=== PATIENT | male | born 1985 | race Caucasian/White ===

== ENCOUNTER 2022-08-26 10:54 | Emergency (ER) | payer BC, SELFPAY ==
[2022-08-26] VITALS (7 sets, daily range): BP systolic 92–130; BP diastolic 74–80; PULSE 88–107; RESP 16–18; TEMP 36.5–36.8; O2SAT 95–100; BMI 28.2
--- NOTE | 2022-08-26 11:33 | XR_ITS ---
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 Views: 2 views. COMPARISON: No relevant prior studies available. FINDINGS: Lungs: Right lung clear. Pleural spaces: Unremarkable. No pleural effusion. No pneumothorax. Heart/Mediastinum: Unremarkable. No cardiomegaly. Diaphragm: Elevated left hemidiaphragm. Compressive left basilar subsegmental atelectasis. Clear right lung. Bones/joints: Unremarkable. Gastrointestinal tract: Dilated colonic loops. IMPRESSION: Elevated left hemidiaphragm with compressive subsegmental atelectasis. Possible colonic ileus.
--- NOTE | 2022-08-26 11:40 | EXP.UTC ---
Discharge Plan Disposition Patient Disposition: Home, Self-Care Condition: Good Prescriptions Prescriptions: New levofloxacin 500 mg tablet 500 mg PO DAILY 10 Days Qty: 10 0RF prednisone 20 mg tablet 20 mg PO BID Qty: 10 0RF Referrals Follow up/Referrals: Radha Price APRN [Staff Physician] - See instructions Provider,MD Marcello [Primary Care Provider] - See instructions Tanner Wilkes MD [Physician] - See instructions Activity Restrictions/Add. Instructions Additional Instructions/Restrictions: Levaquin and prednisone as prescribed. Follow-up with pulmonology, Dr. Wilkes, call for appointment, bring x-ray and CT disc with you to appointment. Follow-up with Radha Price NP for gastroenterology, call for appointment, bring x-ray and CT disc with you to appointment. Clinical Impressions Clinical Impression: Acute bronchitis, Elevated diaphragm, Chronic pleural effusion, Ileus Instructions Patient Instructions: DI for Ileus, DI for Acute Bronchitis, DI for Pleural Effusion Discharge ED Provider: Magno Ray [facility] HPI General Chief complaint: Upper Respiratory Infection Stated complaint: Persistant cough Mode of Arrival: Ambulatory Source of Information: Patient Limitations: No Limitations Time Seen by Provider: 08/26/22 12:41 Description of Symptoms (Recalled from Triage Doc. by RN): PATIENT C/O PERSISTANT COUGH. REPORTS A HISTORY OF COLLAPSED LUNG APPROX 2 YEARS AGO HEENT Symptoms (Recalled from RN notes): No Resp Symptoms (Recalled from RN notes): Yes Skin Symptoms (Recalled from RN notes): No MS Symptoms (Recalled from RN notes): No Functional Status (Recalled from RN notes): WNL History of Present Illness Provider Complaint: Patient states that for the last couple months States that he was seen in a [facility] in [place] and was given some antibiotics and they did help but then it came back States that at times he is able to cough up some mucous at times States that at times it is white, at times it is brown States that he has history of collapsed lung, 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 States that he had surgery where they tacked up his diaphragm and this happened while in the States that he was concerned when he was still having cough that is productive at times so he came in Denies SOA, Denies fever States that he has been having persistant cough since having the flu a few months ago Related Data Previous Rx's Medication Instructions Recorded levofloxacin 500 mg tablet 500 mg PO DAILY 10 days #10 tabs 08/26/22 prednisone 20 mg tablet 20 mg PO BID #10 tabs 08/26/22 Allergies Allergy/AdvReac Type Severity Reaction Status Date / Time No Known Allergies Allergy Verified 08/26/22 12:57 Worker's Comp Is this a Worker's Comp case?: No [facility] Disclaimer: The information contained in this section may have been updated after the patient was seen, as this information can be updated by other users. Social History Smoking Status: Never smoker alcohol intake: never current occupational status: employed Travel in the last 8 weeks: None ROS Obtained: Yes All systems reviewed & no additional complaints except as documented and Yes Systems reviewed as appropriate & no additional complaints except as documented Constitutional Constitutional: Reports system reviewed and no additional complaints, except as documented and Reports as per HPI ENT Ears, Nose, Mouth, and Throat: Reports system reviewed and no additional complaints, except as documented, Reports as per HPI and Reports nasal congestion Cardiovascular Cardiovascular: Reports system reviewed and no additional complaints, except as documented, Reports as per HPI, Denies chest pain and Denies dyspnea Respiratory Respiratory: Reports system reviewed and no additional complaints, except as documented, Reports as per HPI, Denies shortness of breath, Repo
--- NOTE | 2022-08-26 12:08 | PC.NURSE ---
PATIENT SENT TO ER PER Carmela JAMES APRN FOR FURTHER EVALUATION. REPORT GIVEN TO Ricky LOPEZ RN
--- NOTE | 2022-08-26 12:27 | HMH.EDGENADL ---
Discharge Plan Disposition Patient Disposition: Home, Self-Care Condition: Good Prescriptions Prescriptions: New levofloxacin 500 mg tablet 500 mg PO DAILY 10 Days Qty: 10 0RF prednisone 20 mg tablet 20 mg PO BID Qty: 10 0RF Referrals Follow up/Referrals: Radha Price APRN [Staff Physician] - See instructions Provider,MD Marcello [Primary Care Provider] - See instructions Tanner Wilkes MD [Physician] - See instructions Activity Restrictions/Add. Instructions Additional Instructions/Restrictions: Levaquin and prednisone as prescribed. Follow-up with pulmonology, Dr. Wilkes, call for appointment, bring x-ray and CT disc with you to appointment. Follow-up with Radha Price NP for gastroenterology, call for appointment, bring x-ray and CT disc with you to appointment. Clinical Impressions Clinical Impression: Acute bronchitis, Elevated diaphragm, Chronic pleural effusion, Ileus Instructions Patient Instructions: DI for Ileus, DI for Acute Bronchitis, DI for Pleural Effusion Discharge ED Provider: Magno Ray General Adult HPI General Chief complaint: Upper Respiratory Infection Stated complaint: Persistant cough Time Seen by Provider: 08/26/22 12:41 Mode of Arrival: Ambulatory Source of Information: Patient Limitations: No Limitations Description of Symptoms (Recalled from ER Triage Doc. by RN): PATIENT C/O PERSISTANT COUGH. REPORTS A HISTORY OF COLLAPSED LUNG APPROX 2 YEARS AGO History of Present Illness HPI narrative: The patient is sent from the urgent treatment center. He reports having a persistent, recurrent cough, brown liquid sputum. States that he had the flu a couple of months ago. Since then he has had problems with recurrent cough. Previously treated by an urgent treatment center with 5 days of antibiotics with improvement. He does not know what antibiotic was. Symptoms have again recurred. He went to the urgent treatment center today and had a chest x-ray which showed concern over an ileus. He was requesting treatment with antibiotics and steroids. 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 He says his diaphragm was pulled down and tacked in place. Since then he has had problems with his bowels. He says that he can go 79 days without having a bowel movement. He has to use laxative tea to have bowel movements. He says that sometimes when he lays down at night he will have excessive flatus. Denies abdominal pain or vomiting. Denies fever. His last bowel movement was yesterday. Related Data Previous Rx's Medication Instructions Recorded levofloxacin 500 mg tablet 500 mg PO DAILY 10 days #10 tabs 08/26/22 prednisone 20 mg tablet 20 mg PO BID #10 tabs 08/26/22 Allergies Allergy/AdvReac Type Severity Reaction Status Date / Time No Known Allergies Allergy Verified 08/26/22 12:57 [facility] Disclaimer: The information contained in this section may have been updated after the patient was seen, as this information can be updated by other users. Social History Smoking Status: Never smoker ROS Obtained: Yes Systems reviewed as appropriate & no additional complaints except as documented Constitutional Constitutional: Denies fever(s), Denies headache(s) and Denies weakness ENT Ears, Nose, Mouth, and Throat: Denies headache(s), Denies nasal discharge and Denies sore throat Cardiovascular Cardiovascular: Denies chest pain Respiratory Respiratory: Denies shortness of breath, Reports cough and Reports cough with sputum production Gastrointestinal Gastrointestingal: Reports as per HPI and constipation; Denies abdominal pain, diarrhea or vomiting Genitourinary Male Genitourinary: Denies difficulty urinating and Denies flank pain Musculoskeletal Musculoskeletal: Denies numbness Neurologic Neurologic: Denies headache(s), Denies numbness and Denies weakness
[2022-08-26 12:37] LABS: Microscopic, Urine URINE MICROSCOPIC (MICROSCOPIC)
[2022-08-26 12:40] LABS: Appearance,Urine CLEAR (Clear); Bilirubin,Urine Negative (Negative); Blood, Urine Negative (Negative); Color,Urine YELLOW (Yellow); Glucose,Urine (UA) Negative (Negative); Ketones,Urine Negative (Negative); Leukocyte Esterase,Urine Negative (Negative); Nitrate,Urine Negative (Negative); Protein,Urine Negative (Negative); Specific Gravity, Urine 1.025 (1.005-1.030)
--- NOTE | 2022-08-26 12:48 | CT_ITS ---
PROCEDURE INFORMATION: Exam: CT Chest Without Contrast; Diagnostic Exam date and time: 08/26/2022 1:02 PM Age: 37 years old Clinical indication: Cough; Additional info: Persistent, recurrent cough, diaph paralysis TECHNIQUE: Imaging protocol: Diagnostic computed tomography of the chest without contrast. Radiation optimization: All CT scans at this facility use at least one of these dose optimization techniques: automated exposure control; mA and/or kV adjustment per patient size (includes targeted exams where dose is matched to clinical indication); or iterative reconstruction. REPORTING DATA: Count of CT and Cardiac NM exams in prior 12 months: This patient has received [address] and 0 known cardiac nuclear medicine studies in the 12 months prior to the current study. COMPARISON: CR XR CHEST 2V 08/26/2022 11:32 AM FINDINGS: Trachea: Visualized central airways grossly clear. Lungs: Left basilar subsegmental atelectasis. Multifocal tree-in-bud foci in left lung base. Incidental calcified right apical granuloma. Pleural spaces: Chronic elevated left hemidiaphragm with complex moderate left pleural effusion. Heart: Tiny pericardial effusion. Lymph nodes: Reactive axillary and mediastinal lymph nodes without lymphadenopathy. Vasculature: Unremarkable. No aortic aneurysm. No appreciable atherosclerotic calcification of coronary arteries or thoracic aorta. Bones/joints: Visualized osseous structures grossly unremarkable findings. Soft tissues: Unremarkable. IMPRESSION: 1. Chronic elevation of left hemidiaphragm with complex left pleural effusion. Multifocal tree-in-bud foci in left lung base, likely infectious/inflammatory including from DIANDRA infection. 2. Tiny pericardial effusion.
--- NOTE | 2022-08-26 12:48 | CT_ITS ---
PROCEDURE INFORMATION: Exam: CT Abdomen And Pelvis With Contrast Exam date and time: 08/26/2022 1:05 PM Age: 37 years old Clinical indication: Constipation; Patient HX: PT has HX of paralyzed diaphragm on left side and collapsed lung; Additional info: Bowel problems TECHNIQUE: Imaging protocol: Computed tomography of the abdomen and pelvis with contrast. Radiation optimization: All CT scans at this facility use at least one of these dose optimization techniques: automated exposure control; mA and/or kV adjustment per patient size (includes targeted exams where dose is matched to clinical indication); or iterative reconstruction. Contrast material: ISOVUE; Contrast volume: 75 ml; Contrast route: IV; REPORTING DATA: Count of CT and Cardiac NM exams in prior 12 months: This patient has received [address] and 0 known cardiac nuclear medicine studies in the 12 months prior to the current study. COMPARISON: CT CHEST WO CON 08/26/2022 1:02 PM FINDINGS: Pleural spaces: Similar, chronically elevated left hemidiaphragm with chronic complex left pleural effusion appreciably changed. Heart: Small pericardial effusion. Liver: Normal. No mass. Gallbladder and bile ducts: Normal. No calcified stones. No ductal dilation. Pancreas: Normal. No ductal dilation. Spleen: Normal. No splenomegaly. Adrenal glands: Normal. No mass. Kidneys and ureters: Normal. No hydronephrosis. Stomach and bowel: Unremarkable. No obstruction. No mucosal thickening. Appendix: No evidence of appendicitis. Intraperitoneal space: Unremarkable. No free air. No significant fluid collection. Vasculature: Unremarkable. No abdominal aortic aneurysm. Lymph nodes: Unremarkable. No enlarged lymph nodes. Urinary bladder: Unremarkable as visualized. Reproductive: Unremarkable as visualized. Bones/joints: Unremarkable. No acute fracture. Soft tissues: Unremarkable. IMPRESSION: Etiology indeterminate chronically elevated left hemidiaphragm with complex left pleural effusion.
--- NOTE | 2022-08-26 12:58 | PC.NURSE ---
Pt. heading to CT
[2022-08-26 13:07] LABS: Alanine Aminotransferase 26 U/L (12-78); Albumin Level 4.7 g/dl (3.5-5.0); Albumin/Globulin Ratio 1.3 (1.1-1.8); Alkaline Phosphatase 71 U/L (38-126); Aspartate Amino Transferase 30 U/L (17-59); Bilirubin,Total 0.6 mg/dl (0.2-1.3); Blood Urea Nitrogen 19 mg/dl (9-20); Calcium 9.2 mg/dl (8.4-10.2); Carbon Dioxide 31 mmol/L (22.0-30.0); Chloride 100 mmol/L (98-107); Creatinine Clearance Estimated 156 mL/min (50-200); Estimated Glomerular Filt Rate 95 ml/min (>60); GFR (African American) 116 ML/MIN (>60); Globulin 3.7 g/dL (1.3-3.2); Glucose 92 mg/dl (74-100); Lipase 40 U/L (23-300); Sodium 137 mmol/L (136-145); Total Protein,Serum 8.4 g/dl (6.3-8.2)
--- NOTE | 2022-08-26 13:10 | PC.NURSE ---
pt back to room from [facility]
--- NOTE | 2022-08-26 13:11 | PC.NURSE ---
pt just arrived back to room from radiology
[2022-08-26 13:20] LABS: Squamous Epithelial Cell,Urine Occasional #/hpf (0-5); WBC,Urine Occasional #/hpf (0-3)
[2022-08-26 13:35] LABS: Basophils # 0.1 K/mm3 (0-0.2); Eosinophils # 0.1 K/mm3 (0.0-0.4); Eosinophils % 1.3 % (0.1-12.0); Hematocrit 44.7 % (42.0-52.0); Hemoglobin 14.4 g/dL (14.1-18.0); Lymphocytes # 2.1 K/mm3 (0.7-4.5); Lymphocytes % 27.2 % (10-50); Mean Corpuscular HGB Conc 32.1 g/dL (31.8-35.4); Mean Corpuscular Hemoglobin 25.5 pg (27.0-31.2); Mean Corpuscular Volume 79.5 fl (80-94); Mean Platelet Volume 8.1 fl (7.4-10.4); Monocytes # 0.6 K/mm3 (0.1-1.0); Monocytes % 8.2 % (1.7-9.3); Neutrophils # 4.9 K/mm3 (1.8-7.8); Neutrophils % 62.2 % (37.0-80.0); Platelet Count 251 K/mm3 (142-424); Red Blood Count 5.63 M/mm3 (4.60-6.20); Red Cell Distribution Width 14.9 % (11.5-17.5); White Blood Count 7.9 K/mm3 (4.8-10.8)
== END 2022-08-26 14:27 | disposition home or self-care (01) ==
LOC: UTC 11:24 → ER 12:14
PROVIDERS: Emergency Provider Emergency Medicine
DX: J20.9 Acute bronchitis, unspecified (principal); K56.7 Ileus, unspecified; J98.6 Disorders of diaphragm; J91.8 Pleural effusion in other conditions classified elsewhere
CPT/HCPCS: 71046; 71250; 74177; 80053; 81001; 83690; 85025; 99285; Q9967

== ENCOUNTER → 2022-11-15 11:33 | Outpatient (CLI) | payer BC, SELFPAY | PROVIDERS: Visit Provider Internal Medicine Pulmonary Disease | DX: J18.9 Pneumonia, unspecified organism (principal); B95.2 Enterococcus as the cause of diseases classified elsewhere | CPT/HCPCS: 87070; 87077; 87116; 87186; 87205; 87206; 87220 ==

== ENCOUNTER → 2022-11-16 10:56 | Outpatient (CLI) | payer BC, SELFPAY ==
--- NOTE | 2022-11-16 10:56 | CT_ITS ---
FINAL REPORT TECHNIQUE: Axial imaging of the chest was obtained without contrast. Reformatted images were also obtained and reviewed.This study was performed with techniques to keep radiation doses as low as reasonably achievable, (ALARA). Individualized dose reduction technique using automated exposure control or adjustment of mA and/or kV according to the patient's size were employed. CLINICAL HISTORY: POSSIBLE LUNG INFECTION IN COLLAPSED LUNG COMPARISON: 08/26/2022 FINDINGS: There is mild gynecomastia. There is no axillary adenopathy. There is no hilar or mediastinal mass or adenopathy. Heart size is normal. There is no pericardial or pleural effusion. Limited images of the upper abdomen are unremarkable. A calcified granuloma is seen in the right upper lobe. There is elevation of the left hemidiaphragm with postoperative changes the left thorax. Calcified material is seen in the left pleural space, unchanged from prior exam. There has been partial improvement of left lung opacities. Mild left lung scarring is noted. IMPRESSION: No acute process. Reviewed, Interpreted and Dictated by Huber Farris III, MD Transcribed by Elif Jorge Authenticated and [facility]
[2022-11-16 11:52] LABS: Basophils % 0.6 % (0.1-2.0); Eosinophils # 0.1 K/mm3 (0.0-0.4); Eosinophils % 0.9 % (0.1-12.0); Hematocrit 41.3 % (42.0-52.0); Hemoglobin 13.4 g/dL (14.1-18.0); Lymphocytes % 26.2 % (10-50); Mean Corpuscular HGB Conc 32.6 g/dL (31.8-35.4); Mean Corpuscular Hemoglobin 25.9 pg (27.0-31.2); Mean Corpuscular Volume 79.6 fl (80-94); Mean Platelet Volume 8.2 fl (7.4-10.4); Monocytes # 0.6 K/mm3 (0.1-1.0); Monocytes % 7.5 % (1.7-9.3); Neutrophils % 64.9 % (37.0-80.0); Platelet Count 303 K/mm3 (142-424); Red Blood Count 5.18 M/mm3 (4.60-6.20); Red Cell Distribution Width 14.2 % (11.5-17.5); White Blood Count 7.7 K/mm3 (4.8-10.8)
[2022-11-16 12:25] LABS: Alanine Aminotransferase 22 U/L (12-78); Albumin Level 4.2 g/dl (3.5-5.0); Albumin/Globulin Ratio 1.4 (1.1-1.8); Alkaline Phosphatase 65 U/L (38-126); Anion Gap 15.8 mEq/L (5-15); Aspartate Amino Transferase 27 U/L (17-59); Bilirubin,Total 0.4 mg/dl (0.2-1.3); Blood Urea Nitrogen 15 mg/dl (9-20); Calcium 9.1 mg/dl (8.4-10.2); Carbon Dioxide 27 mmol/L (22.0-30.0); Chloride 100 mmol/L (98-107); Estimated Glomerular Filt Rate 109 ml/min (>60); GFR (African American) 132 ML/MIN (>60); Glucose 92 mg/dl (74-100); Potassium 4.8 mmoL/L (3.5-5.1); Sodium 138 mmol/L (136-145); Total Protein,Serum 7.2 g/dl (6.3-8.2)
[2022-11-16 12:31] LABS: C-Reactive Protein 21.3 mg/L (0-4)
[2022-11-20 16:13] LABS: QuantiFERON-TB Gold Plus Negative (Negative)
[2022-11-20 20:14] LABS: Aspergillus flavus Negative (Neg:<1:1); Aspergillus fumigatus Negative (Neg:<1:1); Aspergillus niger Negative (Neg:<1:1); Blastomyces Antibody Negative (Neg:<1:1)
== END ==
PROVIDERS: PCP Internal Medicine Pulmonary Disease; Visit Provider Internal Medicine Pulmonary Disease
DX: R91.8 Other nonspecific abnormal finding of lung field (principal); J84.9 Interstitial pulmonary disease, unspecified; J45.909 Unspecified asthma, uncomplicated; J84.10 Pulmonary fibrosis, unspecified; R06.09 Other forms of dyspnea
CPT/HCPCS: 36415; 71250; 80053; 85025; 86140; 86480; 86606; 86612

== ENCOUNTER → 2022-11-26 08:04 | Day surgery (SDC) | payer BC, SELFPAY ==
[2022-11-23 14:53] VITALS: BMI 29.9
[2022-11-26] VITALS (10 sets, daily range): BP systolic 97–138; BP diastolic 66–85; PULSE 55–73; RESP 14–18; TEMP 36.1–36.6; O2SAT 92–98
--- NOTE | 2022-11-26 | XR_ITS ---
FINAL REPORT CLINICAL HISTORY: CHEST IN OR FT 1:37 FINDINGS: FLUORO TIME PROCEDURE: Fluoroscopy in the operating room. FINDINGS: Fluoroscopy time was provided by the radiology department for the clinical service. One film was obtained. Fluoroscopy exposure time: 1 minute 37 seconds IMPRESSION: See above Reviewed, Interpreted and Dictated by Daniel Bravo MD Transcribed by Fern Sky Authenticated and [facility]
--- NOTE | 2022-11-26 08:09 | ECG_ITS ---
APPROVED REPORT Exam: Resting ECG HR:68 bpm ECG Measurements Heart Rate 68 AXES CA 127 P -23 QRSd 101 QRS 83 QT 405 T 84 QTc 422 Conclusion SINUS RHYTHM WITH SINUS ARRHYTHMIA ANTEROLATERAL MYOCARDIAL INFARCTION , OF INDETERMINATE AGE [40+ ms Q WAVE IN I/aVL/V3-V6] ABNORMAL ECG UNCONFIRMED REPORT Electronically signed by : Steve Pineda MD 11/26/2022 21:25:53
--- NOTE | 2022-11-26 08:37 | SUR.PREOP ---
Pancho Belle ESCROW CLERK reviewed EKG and stated he will talk to dr. navarro.
--- NOTE | 2022-11-26 08:58 | SUR.PREOP ---
Faxed for Release of Information to [facility] for any prior EKG's. [id number]- Notified NAT Puentes regarding cardiology consult
[2022-11-26 08:59] LABS: Chloride 101 mmol/L (98-107)
[2022-11-26 09:00] LABS: Potassium 4.1 mmoL/L (3.5-5.1); Sodium 138 mmol/L (136-145)
[2022-11-26 09:02] LABS: Basophils % 0.4 % (0.1-2.0); Blood Urea Nitrogen 15 mg/dl (9-20); Creatinine Clearance Estimated 165 mL/min (50-200); Eosinophils # 0.1 K/mm3 (0.0-0.4); Estimated Glomerular Filt Rate 95 ml/min (>60); GFR (African American) 116 ML/MIN (>60); Hematocrit 42.9 % (42.0-52.0); Hemoglobin 13.5 g/dL (14.1-18.0); Lymphocytes # 1.9 K/mm3 (0.7-4.5); Lymphocytes % 21.4 % (10-50); Mean Corpuscular HGB Conc 31.5 g/dL (31.8-35.4); Mean Corpuscular Hemoglobin 25.4 pg (27.0-31.2); Mean Corpuscular Volume 80.4 fl (80-94); Mean Platelet Volume 8.5 fl (7.4-10.4); Monocytes # 0.5 K/mm3 (0.1-1.0); Monocytes % 5.6 % (1.7-9.3); Neutrophils # 6.4 K/mm3 (1.8-7.8); Neutrophils % 71.6 % (37.0-80.0); Platelet Count 216 K/mm3 (142-424); Red Blood Count 5.33 M/mm3 (4.60-6.20); Red Cell Distribution Width 14.6 % (11.5-17.5); White Blood Count 8.9 K/mm3 (4.8-10.8)
[2022-11-26 09:03] LABS: Anion Gap 11.1 mEq/L (5-15); Carbon Dioxide 30 mmol/L (22.0-30.0); Glucose 95 mg/dl (74-100)
--- NOTE | 2022-11-26 09:43 | SUR.PREOP ---
echo at bedside
--- NOTE | 2022-11-26 09:54 | SUR.PREOP ---
Daniel Mccollum PA at bedside
--- NOTE | 2022-11-26 09:58 | EXP.ANES.CKL ---
[facility] Disclaimer: The information contained in this section may have been updated after the patient was seen, as this information can be updated by other users. Medical History Allergies Atypical pneumonia Dyspnea on exertion Multiple lung nodules on CT Surgical History History of shoulder surgery History of thoracentesis History of thoracotomy History of thumb surgery History of umbilical hernia repair Family History Other Family history of cancer Hypertension Social History (Updated 11/26/22 @ 08:24 by Jayshree Lynch RN) Smoking Status: Never smoker alcohol intake: never substance use type: denies use current occupational status: employed Travel in the last 8 weeks: None [facility] Anesthesia Checklist Patient Identification Patient Identification: Arm Band Structural Data Admitted From: Home Planned Operative Procedure/s: Excision of Right Thigh Lesion Consent for Planned Operative Procedure(s) Verified: Yes Verified Documents: Surgical Consent and History and Physical NPO Status Verified Time NPO: 00:00 Additional verifications Anesthesia Reactions: No Hx Blood Transfusions: No Blood Transfusion Reaction: No Airway Assessment C-Spine Mobility Assessed: Yes TMJ Mobility Assessed: Yes Dentition: Good Dentition Neurological Assessment Level of Consciousness: Awake and Alert Anesthesia Plan Anesthesia Risk discussed: Yes Anesthesia Plan: Verified ASA Class: II Anesthesia Type: General
--- NOTE | 2022-11-26 11:00 | EXP.BRONCH.N ---
Procedure: Date: 11/26/22 Patient Date of :: 1985 Procedure Performed:: Bronchoscopy with airway examination, bronchoalveolar lavage and transbronchial lung biopsy Indications:: Atypical pneumonia Nonresolving pneumonia Performing Provider:: Tanner Wilkes MD Referring Provider:: Patient is a self-referral to the pulmonary clinic. Sedation:: General anesthesia Procedure:: Bronchoscopy airway examination, bronchoalveolar lavage and transbronchial lung biopsy: A clean THEREPEAUTIC bronchoscopy was advanced through the ET tube and airways were examined up to subsegmental bronchi. Airways appeared grossly normal, no evidence of mucoid secretions, mucous plugging active bleeding/old blood clots noted. Bronchoalveolar lavage was performed in the LEFT UPPER LOBE with instillation of 60 cc normal saline with return of 30 cc back. BAL fluid was sent for cell count and differential along with bacterial fungal and AFB stain and cultures. Transbronchial biopsy was performed in the LEFT UPPER LOBE with a total of 7 biopsies performed, 5 biopsy specimens were sent in formalin for cytopathologic examination. The other 2 biopsy samples, were sent one each in two separate normal saline specimen cups for bacterial fungal and AFB stain cultures. Special request was also made for the pathologist to evaluate for AFB and fungal organisms on the cytopathologic examination. Patient tolerated the procedure with no immediate acute complications. We will follow the patient in pulmonary clinic in 7 to 10 days. Findings:: Please see the procedure note Recommendations:: Postoperative bronchoscopy instructions. Follow in pulmonary clinic in 5 to 10 days Complications:: No acute immediate complication Estimated blood obtained (mL): 5
--- NOTE | 2022-11-26 11:07 | P.PNANES_ITS ---
[facility] Anesthesia Record Part I Anesthesia Record I Intake, IV Amount: 500 Estimated blood loss (mL): 0 Urine output (mL): 0 Blood Products used (#): none Blood Pressure: 97/73 SaO2: 95 Pulse Rate: 70 Respiratory Rate: 16 Temperature: 97 F Patient is:: Drowsy and Stable Stable to PACU at:: 11:05
--- NOTE | 2022-11-26 11:52 | EXP.CARD.CON ---
History of Present Illness History of Present Illness Consult date: 11/26/22 Requesting physician: Tanner Wilkes Consult reason: pre-op evaluation Chief complaint: Abnormal EKG Additional Medical History:: 1. 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 Status post diaphragm tacking due to exertional shortness of breath and stomach displacement B. Chronic left pleural effusion 2. 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 Abnormal EKG showing possible anterolateral VT B. Echocardiogram, 11/26/2022, normal ejection fraction with no wall motion abnormalities History of present illness: 37-year-old white male [place] for bronchoscopy today due to recent lung infection, chronic cough for 2 months and shortness of breath. Cardiology consulted due to abnormal EKG. Patient denies history of diabetes, tobacco use, hypertension, hyperlipidemia or significant family history of early coronary disease. EKG shows Q waves in the anterolateral leads with concern for anterolateral VT. Echocardiogram was obtained that shows displacement of the heart to the right side with normal ejection fraction and normal wall motion abnormalities. [facility] Disclaimer: The information contained in this section may have been updated after the patient was seen, as this information can be updated by other users. Medical History (Updated 11/26/22 @ 11:57 by NAT Mike) Abnormal EKG Allergies Atypical pneumonia Dyspnea on exertion Multiple lung nodules on CT Surgical History History of shoulder surgery History of thoracentesis History of thoracotomy History of thumb surgery History of umbilical hernia repair Family History Family history of cancer Hypertension Social History (Updated 11/26/22 @ 09:58 by Cassius Belle CRNA) Smoking Status: Never smoker alcohol intake: never substance use type: denies use current occupational status: employed Travel in the last 8 weeks: None Review of Systems Review of Systems Review of systems:: pertinent systems reviewed and negative unless documented below Exam Data for Last 24 hours Vital signs and Labs for Last 24 Hours: Temp Pulse Resp BP Pulse Ox 97 F L 71 16 138/76 95 11/26/22 11:08 11/26/22 11:35 11/26/22 11:35 11/26/22 11:35 11/26/22 11:35 Laboratory Results - last 24 hr 11/26/22 08:35: WBC 8.9, RBC 5.33, Hgb 13.5 L, Hct 42.9, MCV 80.4, MCH 25.4 L, MCHC 31.5 L, RDW 14.6, Plt Count 216, MPV 8.5, Neut % (Auto) 71.6, Lymph % (Auto) 21.4, [place] % (Auto) 5.6, Eos % (Auto) 1.0, Baso % (Auto) 0.4, Neut # (Auto) 6.4, Lymph # (Auto) 1.9, [place] # (Auto) 0.5, Eos # (Auto) 0.1, Baso # (Auto) 0.0 11/26/22 08:35: Sodium 138, Potassium 4.1, Chloride 101, Carbon Dioxide 30, Anion Gap 11.1, BUN 15, Creatinine 0.90, Estimated Creat Clear 165, Estimated GFR 95, Est GFR ( Amer) 116, Glucose 95, Calcium 9.0 I & O for Last 24 hours: Intake & Output 11/23/22 11/24/22 11/25/22 11/26/22 11:59 11:59 11:59 11:59 Intake Total 500 / 500 Balance 500 / 500 Weight 226 lb Constitutional Constitutional: no acute distress *Routine Respiratory Exam Respiratory: Present CTA bilaterally *Routine Cardiovascular Exam Cardiovascular: Present RRR; Absent murmur, gallop or rubs Comments: Heart sounds heard best in the right chest *Routine Extremities Exam Extremities: Absent cyanosis, clubbing or edema *Routine Neurological Exam Neurological: Present alert, oriented X3 and CN II-XII intact Meds Home Medications and Allergies Home Medications Medication Instructions Recorded Confirmed Type albuterol sulfate 90 mcg/actuation 2 inh inhalation Q6H PRN shortness 11/14/22 11/23/22 Rx aerosol inhaler of breath or wheezing 90 days #8.5 grams amoxicillin 500 mg-potassium 1
--- NOTE | 2022-11-27 10:02 | P.PNANES_ITS ---
[facility] Anesthesia Record Part II Anesthesia Record Part II Discharge Time: 11:35 Destination: Surgical Day Care (OP Surgery) PACU nurse assessment reviewed?: Yes Patient Condition:: Good Anesthesia Complications:: None Swallowing reflex intact?: Yes Cyanosis?: No Blood Pressure: 138/76 Pulse Rate: 71 Temperature: 97.8 F Mental Status: Alert & Oriented Pain level:: 0 Nausea and/or vomitting:: None Intake, IV Amount: 0
[2022-11-27 10:04] VITALS: BP 138/76; PULSE 71; TEMP 36.6
== END | disposition home or self-care (01) ==
PROVIDERS: Visit Provider Internal Medicine Pulmonary Disease
PROC: (CPT 31624; principal; 2022-11-26 10:00)
DX: J18.9 Pneumonia, unspecified organism (principal); J20.9 Acute bronchitis, unspecified; J90 Pleural effusion, not elsewhere classified; R94.31 Abnormal electrocardiogram [ECG] [EKG]
CPT/HCPCS: 31624; 31628; 71045; 76000; 80048; 85025; 87070; 87102; 87116; 87186; 87205; 87206; 89051; 93005; 93306; J2405

== ENCOUNTER 2023-08-06 09:45 | Outpatient (CLI) | payer BC, SELFPAY ==
[2023-08-06 09:49] LABS: Microscopic, Urine URINE MICROSCOPIC (MICROSCOPIC)
[2023-08-06 10:27] LABS: Appearance,Urine CLEAR (Clear); Bilirubin,Urine Negative (Negative); Blood, Urine Negative (Negative); Color,Urine YELLOW (Yellow); Glucose,Urine (UA) Negative (Negative); Ketones,Urine Negative (Negative); Leukocyte Esterase,Urine Negative (Negative); Nitrate,Urine Negative (Negative); Protein,Urine Negative (Negative); Urobilinogen,Urine 0.2 EU/dl (0.2)
[2023-08-06 10:39] LABS: Bacteria,Urine Trace /lpf
[2023-08-06 10:47] LABS: Basophils % 0.4 % (0.1-2.0); Eosinophils # 0.1 K/mm3 (0.0-0.4); Eosinophils % 0.5 % (0.1-12.0); Hematocrit 45.6 % (42.0-52.0); Hemoglobin 14.4 g/dL (14.1-18.0); Lymphocytes # 1.8 K/mm3 (0.7-4.5); Lymphocytes % 20.3 % (10-50); Mean Corpuscular HGB Conc 31.7 g/dL (31.8-35.4); Mean Corpuscular Hemoglobin 25.4 pg (27.0-31.2); Mean Corpuscular Volume 80.1 fl (80-94); Mean Platelet Volume 8.7 fl (7.4-10.4); Monocytes # 0.6 K/mm3 (0.1-1.0); Monocytes % 6.6 % (1.7-9.3); Neutrophils # 6.2 K/mm3 (1.8-7.8); Neutrophils % 72.1 % (37.0-80.0); Platelet Count 208 K/mm3 (142-424); Red Blood Count 5.69 M/mm3 (4.60-6.20); Red Cell Distribution Width 13.8 % (11.5-17.5); White Blood Count 8.7 K/mm3 (4.8-10.8)
[2023-08-06 10:56] LABS: Chloride 101 mmol/L (98-107)
[2023-08-06 10:57] LABS: Potassium 4.6 mmoL/L (3.5-5.1); Sodium 137 mmol/L (136-145)
[2023-08-06 11:00] LABS: Anion Gap 9.6 mEq/L (5-15); Blood Urea Nitrogen 13 mg/dl (9-20); Calcium 9.2 mg/dl (8.4-10.2); Carbon Dioxide 31 mmol/L (22.0-30.0); Estimated Glomerular Filt Rate 95 ml/min (>60); GFR (African American) 115 ML/MIN (>60); Glucose 95 mg/dl (74-100)
== END 2023-08-06 23:59 ==
LOC: LAB 09:46
PROVIDERS: Visit Provider Surgery
DX: K42.9 Umbilical hernia without obstruction or gangrene (principal)
CPT/HCPCS: 36415; 80048; 81001; 85025

== ENCOUNTER 2023-08-08 06:02 | Day surgery (SDC) | payer BC, SELFPAY ==
[2023-08-06 12:47] VITALS: BMI 31.5
[2023-08-08] VITALS (9 sets, daily range): BP systolic 109–131; BP diastolic 78–92; PULSE 59–95; RESP 16–20; TEMP 36.2–36.7; O2SAT 92–98
[2023-08-08] MEDS: LACTATED RINGERS 1000ML 1,000 ML 100 ML IV (06:28)
--- NOTE | 2023-08-08 07:14 | P.PNANES_ITS ---
[facility] Disclaimer: The information contained in this section may have been updated after the patient was seen, as this information can be updated by other users. Medical History Abnormal computerized axial tomography of chest Abnormal EKG Allergies Atypical pneumonia Chronic cough Dyspnea on exertion Elevated diaphragm GERD (gastroesophageal reflux disease) Multiple lung nodules on CT Surgical History History of bronchoscopy History of shoulder surgery History of thoracentesis History of thoracotomy History of thumb surgery History of umbilical hernia repair Family History Other Family history of cancer Hypertension Social History Smoking Status: Never smoker alcohol intake: never substance use type: denies use current occupational status: employed Travel in the last 8 weeks: None [facility] Anesthesia Checklist Patient Identification Patient Identification: Arm Band and Verbal (Name & ) Structural Data Admitted From: Home Planned Operative Procedure/s: Lap. umbilical hernia repair Consent for Planned Operative Procedure(s) Verified: Yes NPO Status Verified Time NPO: 00:00 Additional verifications Anesthesia Reactions: No Hx Blood Transfusions: No Blood Transfusion Reaction: No Airway Assessment Mallampati Score:: Class I C-Spine Mobility Assessed: Yes TMJ Mobility Assessed: Yes Dentition: Good Dentition Neurological Assessment Level of Consciousness: Awake Hx Seizures: No Numbness or tingling in extremities: No Anesthesia Plan Anesthesia Risk discussed: Yes Anesthesia Plan: Verified ASA Class: II Anesthesia Type: General
[2023-08-08] MEDS: LIDOCAINE 1% 20ML MDV 20 ML (09:04)
[2023-08-08] MEDS: CEFAZOLIN SODIUM 2 GM in 0.9 % SODIUM CHLORIDE 100 ML IV (09:04)
--- NOTE | 2023-08-08 10:02 | EXP.OP.NOTE ---
Date of procedure: 08/08/23 Pre-op Diagnosis:: Recurrent umbilical hernia Post-op Diagnosis:: Same Procedure performed:: Laparoscopic-assisted open primary repair of recurrent umbilical hernia (no additional mesh) Surgeon:: Talat Blood MD Anesthesia: GETA Estimated blood loss (mL): 15 Operative findings:: Prior mesh visualized laparoscopically to be in good position No obvious recurrence noted laparoscopically Tiny herniation with incarcerated preperitoneal fat overlying mesh repair Primary repair of above-stated herniation with 0 Ethibond Operative note:: After informed consent was obtained the patient was taken to the operating room and placed in the supine position. General anesthesia was induced and his abdomen was prepped and draped in a sterile fashion. After infiltration with local anesthetic a small stab incision was made in the left upper quadrant. The Veress needle was placed in position. The abdomen was insufflated. A 5 mm optical trocar was placed in position. Under direct visualization an additional 5 mm trocar was placed in the left mid flank. The prior mesh repair at the umbilicus appeared to be intact. No additional herniations were noted. A portion of the surrounding preperitoneal fat was carefully dissected with harmonic sangeetha to evaluate for additional defects. Palpable nodularity (as noted from external palpation) at the site of prior repair remained. The right lateral margin of the prior infraumbilical incision was sharply reopened after infiltration with local anesthetic. The underlying subcutaneous tissue was dissected with a combination of blunt dissection and electrocautery. Incarcerated preperitoneal fat was resected revealing a tiny defect that was noted to be overlying the prior mesh repair. The defect was approximately 3 mm in length. 0 Ethibond was utilized to repair the defect. The wound was irrigated. The umbilical stump was reapproximated with non-dyed 2-0 Vicryl suture. Skin was then reapproximated with interrupted 4-0 Monocryl in a mattress fashion to facilitate hemostasis. Dressings were applied and the patient was transferred to recovery in stable condition. Condition: stable Disposition: PACU Specimens:: None Complications:: No immediate
--- NOTE | 2023-08-08 10:20 | EXP.ANES.I ---
[facility] Anesthesia Record Part I Anesthesia Record I Intake, IV Amount: 1,400 Hydration: Adequate Estimated blood loss (mL): 25 Urine output (mL): 0 Blood Products used (#): none Blood Pressure: 109/78 SaO2: 92 Pulse Rate: 80 Airway Patency: Patent Respiratory Rate: 20 Temperature: 97.2 F Patient is:: Awake, Drowsy and Stable Stable to PACU at:: 10:20
[2023-08-08] MEDS: HYDROCODONE/APAP 5/325 MG TABLET 1 TAB PO (11:06)
--- NOTE | 2023-08-09 12:49 | P.PNANES_ITS ---
[facility] Anesthesia Record Part II Anesthesia Record Part II Discharge Time: 10:55 Destination: Surgical Day Care (OP Surgery) PACU nurse assessment reviewed?: Yes Patient Condition:: Good Anesthesia Complications:: None Swallowing reflex intact?: Yes Airway Patency: Patent Cyanosis?: No Blood Pressure: 129/84 SaO2: 93 Respiratory Rate: 16 Pulse Rate: 6 Temperature: 97.6 F Mental Status: Alert & Oriented Pain level:: 0 Nausea and/or vomitting:: None Intake, IV Amount: 0 Hydration: Adequate
[2023-08-09 12:50] VITALS: BP 129/84; PULSE 6; RESP 16; TEMP 36.4; O2SAT 93
== END 2023-08-08 11:20 | disposition home or self-care (01) ==
PROVIDERS: Visit Provider Surgery
PROC: 0WQF4ZZ Repair Abdominal Wall, Percutaneous Endoscopic Approach (ICD-10-PCS; CPT 49614; principal; 2023-08-08 07:30)
DX: K42.0 Umbilical hernia with obstruction, without gangrene (principal)
CPT/HCPCS: 49614; 96374; J3490; J2405

== ENCOUNTER 2023-09-09 10:30 | Outpatient (RCR) | payer BC, SELFPAY ==
--- NOTE | 2023-08-28 14:08 | HMH.PTOPWND ---
Rehab Outpt Wound Evaluation Rehab OP Wound Evaluation Start: 08/28/23 13:54 Freq: Status: Active Protocol: Document 08/28/23 13:54 JEAN CARLOS (Rec: 08/28/23 14:07 PHOWILL [id number]) E-signed By Sergio Booker, PT Subjective/History History History This is the initial PT eval for Ankit Rangel, 38 yowm who presents with open abdominal wound ~ 3 wks S/P umbilical hernia repair. He reports his suturesopened shortly after his procedure and were removed by the MD. He has since been packing the wound with dry gauze 2x/day per surgeon's instructions. He has hx of prior umbilical hernia repair. Subjective Subjective He reports paoin 0/10 at rest, only pain with pressure to the wound itself. Sangunieous draingenoted on packing this date. He reports, The wound had closed over, but the surgeon opened it up today when I saw him. New diagnosis of cancer in past 12 No months? Wound Eval Wound Anterior Abdomen Wound Type Incision Is This a Chronic Wound Yes Wound Length (cm) 0.3 Wound Width (cm) 0.8 Wound Depth (cm) 3.5 Wound Bed Appearance Beefy Red Percentage Granulated (%) 100 Wound Margins Description Well Defined Surrounding Tissue Appearance [address] Drainage Description Sanguineous Drainage Amount Moderate Wound Topical Solution/Irrigant Saline Irrigant Packing Type Collagen Comment puracol Primary Dressing Composite Comment optifoam gentle border SA Wound Debridement Method Gauze,Mechanical Wound Debridement Amount of Tissue Minimal Removed Dressing Change Patient Tolerance Tolerated Well Wound Problems/Impairments Impairments Problems/Impairmments Palpation Tenderness,Impaired Work Activities,Wound Care Needs,Impaired Self Care/Self Management Prognosis Rehab Potential Good Clinical Impression Consistent with Diagnosis Yes Short Term Goals Number of Weeks 2 Decreased Palpation Tenderness Yes: 1/4 umbilical wound Decrease Wound Area Yes: by 25%, Depth <2.0 cm Senior Care Goals Number of Weeks 4 Decreased Palpation Tenderness Yes: 0/4 umbilical wound Decrease Wound Area Yes: by 75%, depth <0.5 cm Patient to be Ind w/ Home Wound Care/ Yes Dressing Changes Outpatient Therapy Plan of Care Treatment Plan May Include Therapeutic Exercise Including Home Yes Exercise Program Manual Therapy Techniques Yes Neuromuscular Re-education Yes Therapeutic Activities to Return to Yes Previous Functional/Work Level ADL/Self Care Education Yes Wound Care Yes Eval/Re-Eval Yes Frequency Times per week 1 Duration Number of Weeks 4 Addendums This patient is a candidate for social No or vocational rehab? Patient/Guardian verbally acknowledges Yes understanding of treatment program and consents to further treatment? Patient/Guardian verbally acknowledges Yes understanding of diagnosis, prognosis and goals for treatment? Eval Complexity PT Charges 48994 - High Complexity PHYSICIAN CERTIFICATION: I certify the specified therapy services for Ankit Rangel are required, authorized, and reviewed every 30 days.
== END 2023-09-09 11:30 | disposition home or self-care (01) ==
LOC: PT 10:30
PROVIDERS: Visit Provider Surgery
DX: K42.9 Umbilical hernia without obstruction or gangrene (principal); S31.101A Unspecified open wound of abdominal wall, left upper quadrant without penetration into peritoneal cavity, initial encounter
CPT/HCPCS: 97163; 97597

== ENCOUNTER 2023-11-21 09:02 | Day surgery (SDC) | payer BC, SELFPAY ==
[2023-11-21 09:28] VITALS: BP 130/80; PULSE 110; RESP 18; TEMP 36.3; O2SAT 98; BMI 30.2
--- NOTE | 2023-11-21 09:28 | HMH.SCOPE ---
Procedure: Date: 11/21/23 Patient Date of :: 1985 Procedure Performed:: EGD & biopsies Indications:: Chronic severe GERD Performing Provider:: Pio Price MD Referring Provider:: Radha Price APRN Sedation:: Propofol Procedure:: The gastroscope was gently passed through the incisoral orifice into the oral cavity and under direct visualization the esophagus was intubated. The endoscope was passed down the esophagus, through the stomach, and into the duodenum. Color, texture, mucosa, and anatomy of the esophagus, stomach, and duodenum were carefully examined with the scope. Findings:: Oropharynx: normal Esophagus: normal EG Junction: intact at 40 cm Cardia: normal Fundus: normal Body: normal, biopsied for h.pylori Antrum: normal Duodenal bulb: normal Duodenum (second and third portion): normal Impression: Normal EGD. No evidence of esophagitis or hiatus hernia. Specimens:: Gastric Recommendations:: PPI therapy and avoid tight fitting clothing Complications:: None Estimated blood obtained (mL): 0 Colonoscopy Component Colonoscopy Component Was a colonoscopy performed during today's procedure?: No
[2023-11-21] MEDS: LACTATED RINGERS 1000ML 1,000 ML 100 ML IV (09:36)
--- NOTE | 2023-11-21 09:56 | P.PNANES_ITS ---
[facility] Disclaimer: The information contained in this section may have been updated after the patient was seen, as this information can be updated by other users. Medical History GERD (gastroesophageal reflux disease) Abnormal computerized axial tomography of chest Chronic cough Abnormal EKG Allergies Multiple lung nodules on CT Atypical pneumonia Dyspnea on exertion Elevated diaphragm Surgical History History of bronchoscopy History of thoracentesis History of thoracotomy History of thumb surgery History of umbilical hernia repair History of shoulder surgery Family History Other Family history of cancer Hypertension Social History (Updated 11/21/23 @ 09:30 by Mae Mccollum RN) Smoking Status: Never smoker alcohol intake: never substance use type: denies use current occupational status: employed Travel in the last 8 weeks: None [facility] Anesthesia Checklist Patient Identification Patient Identification: Verbal (Name & ) Structural Data Admitted From: Home Planned Operative Procedure/s: egd Consent for Planned Operative Procedure(s) Verified: Yes Additional verifications Anesthesia Reactions: No Hx Blood Transfusions: No Blood Transfusion Reaction: No Airway Assessment Mallampati Score:: Class II C-Spine Mobility Assessed: Yes TMJ Mobility Assessed: Yes Dentition: Good Dentition Neurological Assessment Level of Consciousness: Awake, Alert and Appropriate Anesthesia Plan Anesthesia Risk discussed: Yes Anesthesia Plan: Verified ASA Class: II Anesthesia Type: MAC
[2023-11-21 10:01] VITALS: O2SAT 98
[2023-11-21 10:17] VITALS: BP 112/74; PULSE 111; RESP 18; TEMP 36.7; O2SAT 93
[2023-11-21 10:27] VITALS: BP 110/71; PULSE 96; RESP 18; O2SAT 95
[2023-11-21 10:37] VITALS: BP 133/65; PULSE 94; RESP 18; O2SAT 96
[2023-11-21 11:00] VITALS: BP 110/71; PULSE 90; RESP 18; O2SAT 98
== END 2023-11-21 11:00 | disposition home or self-care (01) ==
PROVIDERS: Visit Provider Internal Medicine Gastroenterology
PROC: 0DJ08ZZ Inspection of Upper Intestinal Tract, Via Natural or Artificial Opening Endoscopic (ICD-10-PCS; CPT 43235; principal; 2023-11-21 10:00)
DX: K21.9 Gastro-esophageal reflux disease without esophagitis (principal)
CPT/HCPCS: 43239; J7120

== ENCOUNTER 2023-12-05 18:00 | Outpatient (CLI) | payer BC, SELFPAY ==
[2023-12-05 18:40] LABS: Alanine Aminotransferase 16 U/L (12-78); Albumin Level 4.3 g/dl (3.5-5.0); Albumin/Globulin Ratio 1.3 (1.1-1.8); Alkaline Phosphatase 71 U/L (38-126); Anion Gap 14.5 mEq/L (5-15); Aspartate Amino Transferase 24 U/L (17-59); Blood Urea Nitrogen 12 mg/dl (9-20); Calcium 9.4 mg/dl (8.4-10.2); Carbon Dioxide 28 mmol/L (22.0-30.0); Chloride 99 mmol/L (98-107); Chol/HDL Ratio 4.3 (1-3.5); Cholesterol 180 mg/dl (140-200); Estimated Glomerular Filt Rate 95 ml/min (>60); GFR (African American) 115 ML/MIN (>60); Globulin 3.4 g/dL (1.3-3.2); Glucose 91 mg/dl (74-100); HDL Cholesterol 42 mg/dl (40-60); Potassium 4.5 mmoL/L (3.5-5.1); Sodium 137 mmol/L (136-145); Total Protein,Serum 7.7 g/dl (6.3-8.2); Triglycerides 91 mg/dl (30-150); VLDL Cholesterol 18 mg/dL (0-40)
[2023-12-05 18:51] LABS: Direct LDL Cholesterol 107.69 mg/dL (100-129)
[2023-12-05 18:59] LABS: 25-OH Vitamin D, Total 30.6 ng/mL (30-100)
[2023-12-05 19:13] LABS: Thyroid Stimulating Hormone 0.68 uIU/mL (0.465-4.68)
== END 2023-12-05 23:59 | disposition home or self-care (01) ==
LOC: LAB.DROPOF 12-06 13:57
PROVIDERS: PCP Student in an Organized Health Care Education/Training Program; Visit Provider Student in an Organized Health Care Education/Training Program
DX: E55.9 Vitamin D deficiency, unspecified (principal); Z13.29 Encounter for screening for other suspected endocrine disorder; K59.00 Constipation, unspecified; Z13.220 Encounter for screening for lipoid disorders; Z68.30 Body mass index [BMI] 30.0-30.9, adult; E66.9 Obesity, unspecified
CPT/HCPCS: 80053; 80061; 82306; 83036; 84443; 85025

== ENCOUNTER 2023-12-12 15:43 | Outpatient (CLI) | payer BC, SELFPAY ==
--- NOTE | 2023-12-12 15:45 | XR_ITS ---
FINAL REPORT CLINICAL HISTORY: constipation FINDINGS: There is significant gaseous distention of the transverse colon exceeding 10 cm. There is moderate fecal impaction of the right colon. No small bowel dilatation identified. No abnormal radiopacities are seen in the abdomen. IMPRESSION: Moderate fecal impaction. Reviewed, Interpreted and Dictated by Daniel Bravo MD Transcribed by Azeb Mcclain Authenticated and [facility]
== END 2023-12-12 23:59 | disposition home or self-care (01) ==
LOC: RAD 15:43
PROVIDERS: PCP Student in an Organized Health Care Education/Training Program; Visit Provider Nurse Practitioner
DX: K59.00 Constipation, unspecified (principal)
CPT/HCPCS: 74018

== ENCOUNTER 2024-03-20 10:00 | Outpatient (CLI) | payer BC, SELFPAY ==
--- NOTE | 2024-03-20 10:03 | FL_ITS ---
FINAL REPORT CLINICAL HISTORY: REFLUX, BLOATING, CONSTIPATION HX OF DIAPHRAGM AND HERNIA SURG DAP 1723.81 0.57 MIN FINDINGS: Small bowel follow-through PROCEDURE: The patient ingested barium. Spot and overhead films were obtained. FINDINGS: The computer installer film is unremarkable . The transit time to the colon is normal . The mucosal fold pattern is normal . Spot images of the terminal ileum are unremarkable . IMPRESSION: Normal small bowel follow-through Dose area product: 1723 milliGray Authenticated and ERN
[2024-03-20] MEDS: BARIUM SULFATE(LIQUID E-Z-PAQUE);355ML BOTTLE 355 ML PO (11:58)
[2024-03-20] MEDS: DIATRIZOATE MEG 66% & DIATRIZOATE NA 10% 30ML UDC 15 ML PO (11:58)
== END 2024-03-20 23:59 | disposition home or self-care (01) ==
LOC: RAD 10:01
PROVIDERS: PCP Student in an Organized Health Care Education/Training Program; Visit Provider Nurse Practitioner Family
DX: R14.0 Abdominal distension (gaseous) (principal); K59.09 Other constipation; K21.9 Gastro-esophageal reflux disease without esophagitis
CPT/HCPCS: 74250; Q9963

== ENCOUNTER 2024-03-26 08:08 | Day surgery (SDC) | payer BC, SELFPAY ==
[2024-03-18 09:09] VITALS: BMI 31.2
[2024-03-26 08:33] VITALS: BP 141/77; PULSE 72; RESP 18; TEMP 36.2; O2SAT 98; BMI 31.2
--- NOTE | 2024-03-26 08:41 | P.PNANES_ITS ---
[facility] Disclaimer: The information contained in this section may have been updated after the patient was seen, as this information can be updated by other users. Medical History GERD (gastroesophageal reflux disease) Abnormal computerized axial tomography of chest Chronic cough Abnormal EKG Allergies Multiple lung nodules on CT Atypical pneumonia Dyspnea on exertion Elevated diaphragm Surgical History History of bronchoscopy History of thoracentesis History of thoracotomy History of thumb surgery History of umbilical hernia repair History of shoulder surgery Family History Other Family history of cancer Hypertension Social History Smoking Status: Never smoker alcohol intake: never substance use type: denies use current occupational status: employed Travel in the last 8 weeks: None household members: spouse housing: house lives independently: Yes marital status: service: Yes correction: No caffeine: No [facility] Anesthesia Checklist Patient Identification Patient Identification: Verbal (Name & ) Structural Data Admitted From: Home Planned Operative Procedure/s: colonoscopy Consent for Planned Operative Procedure(s) Verified: Yes Additional verifications Anesthesia Reactions: No Hx Blood Transfusions: No Blood Transfusion Reaction: No Airway Assessment Mallampati Score:: Class II C-Spine Mobility Assessed: Yes TMJ Mobility Assessed: Yes Dentition: Good Dentition Neurological Assessment Level of Consciousness: Awake, Alert and Appropriate Anesthesia Plan Anesthesia Risk discussed: Yes Anesthesia Plan: Verified ASA Class: III Anesthesia Type: MAC
[2024-03-26 08:59] VITALS: O2SAT 98
--- NOTE | 2024-03-26 09:11 | P.HP_ITS ---
History of Present Illness *Admission Date: 03/26/24 *Reason for visit:: Diagnostic colonoscopy *History of present illness: Mr. Rangel is a 38-year-old gentleman who is here for diagnostic colonoscopy. . The patient has had constipation and reflux which has been difficult to control. The examination is deemed medically necessary for colonoscopy. The patient has been seen, interviewed and examined prior to the procedure by both myself and the anesthesia provider. [facility] Disclaimer: The information contained in this section may have been updated after the patient was seen, as this information can be updated by other users. Medical History (Updated 03/26/24 @ 09:12 by Stuart Mcfarlane II, MD) GERD (gastroesophageal reflux disease) Abnormal computerized axial tomography of chest Chronic cough Abnormal EKG Allergies Multiple lung nodules on CT Atypical pneumonia Dyspnea on exertion Elevated diaphragm Surgical History History of bronchoscopy History of thoracentesis History of thoracotomy History of thumb surgery History of umbilical hernia repair History of shoulder surgery Family History Other Family history of cancer Hypertension Social History Smoking Status: Never smoker alcohol intake: never substance use type: denies use current occupational status: employed Travel in the last 8 weeks: None household members: spouse housing: house lives independently: Yes marital status: service: Yes senior living: No caffeine: No Other Medical History Have you received the Pneumonia Vaccine: No Review of Systems Review of Systems Review of systems (narrative): Negative *Cardiovascular Comments: Negative *Gastrointestinal Comments: Negative *Genitourinary Comments: Negative *Musculoskeletal Comments: Negative *Neurologic Comments: Negative Meds Home Medications and Allergies Home Medications ?Medication ?Instructions ?Recorded ?Confirmed ?Type testosterone undecanoate 200 mg 200 mg PO DIRECTED 08/02/23 03/18/24 History capsule prucalopride 2 mg tablet 2 mg PO DAILY #90 tabs 03/16/24 03/18/24 Rx (Motegrity) sodium,potassium,mag sulfates 17.5 See Rx Instructions PO .COMPLEX 03/16/24 03/16/24 Rx gram-3.13 gram-1.6 gram oral soln #354 mL (Suprep Bowel Prep Kit) New Prescriptions to Start Prescriptions: Allergies Allergy/AdvReac Type Severity Reaction Status Date / Time No Known Allergies Allergy Verified 03/18/24 08:59 Exam Data for Last 24 hours Vital signs and Labs for Last 24 Hours: Temp Pulse Resp BP Pulse Ox O2 Del Method O2 Flow Rate 97.1 F L 72 18 141/77 H 98 Nasal Cannula 5 03/26/24 08:33 03/26/24 08:33 03/26/24 08:33 03/26/24 08:33 03/26/24 08:33 03/26/24 08:59 03/26/24 08:59 I & O for Last 24 hours: Intake & Output 03/23/24 03/24/24 03/25/24 03/26/24 23:59 23:59 23:59 23:59 Weight 237 lb *Routine HEENT Exam Head: Present normocephalic Eye: Present EOMI and PERRL ENT: Present mucous membranes moist *Routine Neck Exam Neck: Present supple *Routine Respiratory Exam Respiratory: Present CTA bilaterally *Routine Cardiovascular Exam Cardiovascular: Present RRR *Routine Abdominal Exam Abdominal: Present soft and normoactive bowel sounds; Absent tenderness *Routine Rectal Exam Rectal:: deferred *Routine Genitalia Exam Genitalia:: deferred *Routine Extremities Exam Extremities: Absent cyanosis, clubbing or edema *Routine Skin Exam Skin: Present warm; Absent rash *Routine Neurological Exam Neurological: Present alert and oriented X3 Assessment and Plan *Assessment and plan (1) Change in bowel habits: Status: Acute Category: Medical Code(s): R19.4 - Change in bowel habit (2) Chronic constipation: Status: Acute Category: Medical Code(s): K59.09 - Other constipation Plan A/P: 1. Constipation/change in bowel habits is the preprocedural diagnosis. The patient will be anesthetized/sedated using MAC sedation. The patient has been seen and examined. Cardiac and lung assessment prior to the examination is stable. Proceed with planned colonoscopy
--- NOTE | 2024-03-26 09:26 | P.PCN_ITS ---
[facility] Procedure Note Date: 03/26/24 Time: 09:26 Procedure Note:: Colonoscopy Procedure Report: Colonoscopy Endoscopist: Stuart Mcfarlane II, MD Referring physician: Pretty Sin PA-C Date of Procedure: March 26, 2024 Equipment: Olympus 190 variable stiffness pediatric colonoscope Sedation: MAC sedation Indication: Mr. Rangel is a 38-year-old gentleman who had a pneumothorax/collapsed lung and underwent thoracotomy in 2020. He had thoracentesis and paralyzed diaphragm. 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 The patient did have thoracentesis. He had gastric and bowel herniation into the thorax. After repair, he has suffered from intractable constipation. This was refractory to Linzess 290 mcg plus MiraLAX daily. He tried Trulance. He eventually went to using Ex-Lax daily which helps to control it the best. He had marked reflux, bloating, burping prior to begi nning Ex-Lax but the new laxative therapy has helped to control his reflux symptoms. He did have an EGD with Dr. Pio Price MD on November 21, 2023 that was normal without hiatal hernia. He has never had a colonoscopy. He reports no rectal bleeding or weight loss. Procedure: Prior to the procedure, a history and physical exam was performed, and patient's medications and allergies were reviewed. The risks, benefits and alternatives of the sedation and procedure were discussed with the patient. All questions were answered and informed consent was obtained. The patient was brought to the procedure room. Patient identification and proposed procedure were verified by the physician and the nurse. The patient was placed in a left lateral decubitus position and the scope was passed under direct vision. Throughout the procedure, the patient's blood pressure, pulse, and oxygen saturations were monitored continuously. The colonoscopy was accomplished without difficulty. The patient tolerated the procedure well. Findings: On digital rectal examination there was normal rectal tone. There were no external hemorrhoids. The colonoscope was introduced through the anal canal to the rectum and advanced to the cecum. The ileocecal valve and appendiceal orifice were identified. The scope was advanced a short distance into the ileum which appeared grossly normal. The scope was then withdrawn into the colon. There was abundant amount of brown liquid stool throughout which was suctioned. The preparation was fair to poor. There was increased luminal diameter throughout the colon?megacolon. There were no mucosal abnormalities identified throughout. The cecum, ascending, transverse, descending, sigmoid and rectum were grossly normal. There were no mucosal abnormalities identified. Upon retroflexion within the rectum there were grade 1-2 internal hemorrhoids. Impression: 1. Increased luminal diameter throughout colon suggestive of megacolon related to longstanding constipation otherwise normal colonoscopy to the terminal ileum Plan: Diaphragmatic hernias in adults occur most commonly from trauma allowing the abdominal contents to protrude into the chest cavity. Constipation is a subsequent consequence. The patient did have a normal small bowel follow-through study. His chest CT scan in October 2022 showed no abnormalities except for elevation of the left hemidiaphragm with postoperative changes in the left thorax. At this point, I would continue stimulant laxative/Ex-Lax. He cannot do diaphragmatic breathing which is helpful for constipation. I would consider sending him for pelvic floor physical therapy since this appears to be outlet dysfunction constipation. I would also consider adding Motegrity.
[2024-03-26 09:31] VITALS: BP 87/40; PULSE 74; RESP 16; TEMP 36.3; O2SAT 100
[2024-03-26 09:41] VITALS: BP 127/82; PULSE 76; RESP 16; O2SAT 100
[2024-03-26 09:51] VITALS: BP 117/45; PULSE 63; RESP 16; O2SAT 100
[2024-03-26 10:01] VITALS: BP 123/53; PULSE 59; RESP 16; O2SAT 100
== END 2024-03-26 10:23 | disposition home or self-care (01) ==
PROVIDERS: PCP Student in an Organized Health Care Education/Training Program; Visit Provider Internal Medicine Gastroenterology
PROC: (CPT 45378; principal; 2024-03-26 09:30)
DX: K59.09 Other constipation (principal)
CPT/HCPCS: 45378; 99221

== ENCOUNTER 2024-03-31 01:21 | Emergency (ER) | payer BC, SELFPAY ==
[2024-03-31 01:29] VITALS: BP 136/92; PULSE 82; RESP 16; TEMP 36.4; O2SAT 100; BMI 30.9
--- NOTE | 2024-03-31 01:31 | ECG_ITS ---
APPROVED REPORT Exam: Resting ECG HR:73 bpm ECG Measurements Heart Rate 73 AXES FL 104 P -3 QRSd 99 QRS 152 QT 370 T 162 QTc 396 Conclusion SINUS RHYTHM WITH SHORT FL INTERVAL LEFT POSTERIOR FASCICULAR BLOCK [QRS AXIS > 109, INFERIOR Q] INFERIOR MYOCARDIAL INFARCTION , PROBABLY OLD [40+ ms Q WAVE AND/OR ST/T ABNORMALITY IN II/aVF] PROBABLE ANTEROLATERAL MYOCARDIAL INFARCTION , OF INDETERMINATE AGE [35 ms Q WAVE IN I/aVL/V3-V6] T wave abnormalities in lead I, II, aVL, no stemi Electronically signed by : CHUCK FARRIS, 03/31/2024 07:27:14
--- NOTE | 2024-03-31 01:32 | XR_ITS ---
PROCEDURE INFORMATION: Exam: XR Chest Exam date and time: 03/31/2024 1:31 AM Age: 38 years old Clinical indication: Pain; Chest pressure; Additional info: L cp HX spontaneous ptx TECHNIQUE: Imaging protocol: Radiologic exam of the chest. Views: 2 views. COMPARISON: CR XR CHEST AP 11/26/2022 12:00 AM FINDINGS: Lungs: Unremarkable. No consolidation. Pleural spaces: Small left pleural effusion. Heart/Mediastinum: Unremarkable. No cardiomegaly. Diaphragm: Elevation left hemidiaphragm Bones/joints: Unremarkable. IMPRESSION: 1. Elevation left hemidiaphragm. 2. New left small pleural effusion.
--- NOTE | 2024-03-31 01:40 | [facility].EDCP ---
Discharge Plan Disposition Patient Disposition: Home, Self-Care Condition: Good Prescriptions Prescriptions: New oxycodone 5 mg tablet 5 mg PO Q6H PRN (Reason: pain) Qty: 10 0RF No Action Motegrity 2 mg tablet 2 mg PO DAILY Qty: 90 3RF sodium,potassium,mag sulfates [Suprep Bowel Prep Kit] 17.5-3.13-1.6 gram recon soln See Rx Instructions PO .COMPLEX Qty: 354 0RF Rx Instructions: DILUTE; drink full amount early evening before AND next morning at least 2 hr before procedure; follow w 960 mL water PO testosterone undecanoate 200 mg capsule 200 mg PO DIRECTED Rx Instructions: m, w, f Linzess 290 mcg capsule 290 mcg PO DAILY Qty: 30 0RF Rx Instructions: Please take 1 capsule p.o. every morning Referrals Follow up/Referrals: Provider,Marcello, [Primary Care Provider] - See instructions Tanner Wilkes MD [Physician] - See instructions (hx phrenic nerve injury with elevated hemidiaphragm, came to ER with chest pain with reassuring workup, needs close follow-up before returning to work) Activity Restrictions/Add. Instructions Additional Instructions/Restrictions: You were evaluated in the ER and are appropriate for discharge at this time. Take Tylenol, ibuprofen if needed for pain, do not exceed the recommended dose on the bottle. If this is not controlling your pain, only then should you take the oxycodone. This medication can make you sleepy, do not drive or operate machinery after taking it. This will also make you constipated, use a stool softener or laxative to maintain normal bowel movements. Continue home medications as previously prescribed. Call the pulmonology office as soon as possible for an appointment. Also follow-up with your primary care doctor. Return to the ER with new, worsening, or otherwise concerning symptoms. Clinical Impressions Clinical Impression: Chest pain, Pleural effusion Print Language Print Language: Swiss Discharge ED Provider: Yared Rai General Chief Complaint: Shortness of Breath/Dyspnea Stated Complaint: trouble breathing, pain lower chest Time Seen by Provider: 03/31/24 01:32 Mode of Arrival: Ambulatory Source of Information: Patient Limitations: No Limitations Description of Symptoms (Recalled from ER Triage Doc. by RN): Pt reports to ED with cc of SOA. Pt states he went for 2 mile run and worked out today (03/30) then at approx 2200 he began to SOA back pain and epigastric pain. Pt has a hx of a collapsed left lung. Pt states taking a 10 mg Flexeril approx 4 hours ago. History of Present Illness HPI narrative: 38-year-old male with history of left phrenic nerve injury, left thoracotomy, chronic pleural effusion presents to the ER for concerns of shortness of breath and chest pain. Patient states earlier today he went for a 2 mile run and worked out and around 10 PM had worsening shortness of breath, back pain, epigastric pain. Patient states the pain in his back is similar to when he had pneumonia after his initial lung surgery. Regarding his pulmonary history, patient states when he was in the [employer] he caused damage to his phrenic nerve causing a collapsed lung for over a year which he did not know about initially. He states he eventually had thoracentesis followed by thoracotomy, they were unable to repair the nerve and lung. Patient states shortly thereafter he got COVID and ended up with infection and infected fluid outside the lung resulting in additional surgery. Patient states since that time he has not had any acute episodes of pain like this or problems with his heart or lungs. Patient states he took Flexeril approximately 4 hours ago in an attempt to relieve his pain. He does report he is on an prescribed testosterone regimen. Patient describes his pain as being very low in the chest like a band around his diaphragm. He states it is extremely painful for him to take a deep breath. He states the Flexeril did not improve his pain, he has not taken anything else for pain. ROS otherwise negative. Related Data Home Medications ?Medication ?Instructions ?Recorded ?Confirmed testosterone undecanoate 200 mg 200 mg PO DIRECTED 08/02/23 03/18/24 capsule Previous Rx's ?Medication ?Instructions ?Recorded prucalopride 2 mg tablet 2 mg PO DAILY #90 tabs 03/16/24 (Motegrity) sodium,potassium,mag sulfates 17.5 See Rx Instructions PO .COMPLEX 03/16/24 gram-3.13 gram-1.6 gram oral soln #354 mL (Suprep Bowel Prep Kit) linaclotide 290 mcg capsule 290 mcg PO DAILY #30 caps 03/26/24 (Linzess) oxycodone 5 mg tablet 5 mg PO Q6H PRN pain #10 tabs 03/31/24 Allergies Allergy/AdvReac Type Severity Reaction Status Date / Time No Known Allergies Allergy Verified 03/18/24 08:59 [facility] Disclaimer: The information contained in this section may have been updated after the patient was seen, as this information can be updated by other users. Medical History (Updated 03/31/24 @ 05:30 by Yared Rai MD) GERD (gastroesophageal reflux disease) Abnormal computerized axial tomography of chest Chronic cough Abnormal EKG Allergies Multiple lung nodules on CT Atypical pneumonia Dyspnea on exertion Elevated diaphragm Surgical History History of bronchoscopy History of thoracentesis History of thoracotomy History of thumb surgery History of umbilical hernia repair History of shoulder surgery Family History Other Family history of cancer Hypertension Social History Smoking Status: Never smoker alcohol intake: never substance use type: denies use current occupational status: employed Travel in the last 8 weeks: None household members: spouse housing: house lives independently: Yes marital status: service: Yes penitentiary: No caffeine: No Other Medical History Have you received the Pneumonia Vaccine: No ROS Obtained: Yes All systems reviewed & no additional complaints except as documented Positive ROS per HPI Physical Exam General General appearance: alert and in no apparent distress Head Head exam: atraumatic and normocephalic Eye Eye exam: Present PERRL and EOMI ENT ENT exam: Present mucous membranes moist Neck Neck exam: Present normal inspection and full ROM Chest Chest inspection: Present symmetric chest wall rise Respiratory Respiratory exam: Absent normal lung sounds bilaterally (Breath sounds diminished on the left compared to the right but no adventitious sounds), respiratory distress, wheezes or stridor Cardiovascular Cardiovascular exam: Present regular rate and normal rhythm Abdominal Exam Abdominal exam: Present soft and tenderness (Diffuse upper abdominal tenderness when palpating up under the ribs); Absent distention, guarding or rebound Extremities Exam Extremities exam: Present full ROM Back Exam Back exam: Absent CVA tenderness (R) or CVA tenderness (L) Neurological Exam Neurological exam: Present alert and oriented X3; Absent motor sensory deficit Psychiatric Psychiatric exam: Present normal affect and normal mood Skin Skin exam: Present warm and dry HEART Score HEART Score HEART Score assessment performed?: Yes History (anamnesis): Slightly suspicious ECG: Non-specific disturbance Age: <45 years Risk factors: No known risk factors Troponin: </= normal limit HEART Score: 1 Procedures Miscellaneous Procedure Procedure Performed: Limited Aortic Ultrasound Indication: Abdominal pain, upper Identified structures: The abdominal aorta was examined in transverse view, from the [diaphragmatic hiatus to the aortic bifurcation]. Findings: No dissection, no aneurysm, normal diameter Impression: Unremarkable aortic ultrasound Images were saved to permanent archive The study was technically adequate CPT: 46946-51 This study was performed by me, and I personally interpreted all images/videos. Based on my clinical judgement, these images were adequate and did not necessitate further imaging. Critical Care Critical Care Time Critical Care Time: No Medical Decision Making Medical Records Medical records reviewed: Yes I reviewed the patient's medical records. MR Comment: Patient seen by cardiology in 2022 for concerns of abnormal ECG with findings showing possible anterior lateral NE. Patient had normal EF on echo. 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 Patient is also known to have chronic left pleural effusion. 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 Plan for 12-month follow-up and continued use of albuterol. Girma Inquiry Pt receiving controlled substance: Yes Girma was queried for this patient: Yes Reference #:: [id number] Risks and benefits of using a controlled substance: were discussed with pt by me Vital Signs Vital Signs: 03/31/24 01:29 03/31/24 02:00 03/31/24 02:30 Temperature 97.5 F L Temperature Source Oral Pulse Rate 68 80 Pulse Rate [Left Radial] 82 Respiratory Rate 16 Blood Pressure 147/97 H 144/91 H Blood Pressure [Right Arm] 136/92 H Blood Pressure Mean [Right Arm] 106 Blood Pressure Source [Right Arm] Automatic Cuff Blood Pressure Position [Right Arm] Sitting 02 Sat by Pulse Oximetry 100 94 L 95 Oxygen Delivery Method Room Air 03/31/24 03:00 03/31/24 03:30 Temperature Temperature Source Pulse Rate 80 75 Pulse Rate [Left Radial] Respiratory Rate Blood Pressure 131/87 121/78 Blood Pressure [Right Arm] Blood Pressure Mean [Right Arm] Blood Pressure Source [Right Arm] Blood Pressure Position [Right Arm] 02 Sat by Pulse Oximetry 95 96 Oxygen Delivery Method Lab Data Labs: Lab Results 03/31/24 01:41: WBC 11.2 H, RBC 5.93, Hgb 13.9 L, Hct 43.8, MCV 73.9 L, MCH 23.5 L, MCHC 31.8, RDW 15.5, Plt Count 224, MPV 8.2, Neut % (Auto) 71.2, Lymph % (Auto) 20.9, Smyth % (Auto) 6.4, Eos % (Auto) 0.8, Baso % (Auto) 0.7, Neut # (Auto) 8.0 H, Lymph # (Auto) 2.3, Smyth # (Auto) 0.7, Eos # (Auto) 0.1, Baso # (Auto) 0.1, PT 10.8, INR 0.96, D-Dimer 0.35, Sodium 135 L, Potassium 3.6, Chloride 100, Carbon Dioxide 29, Anion Gap 9.6, BUN 18, Creatinine 1.00, Estimated Creat Clear 152, Estimated GFR 84, Est GFR ( Amer) 102, Glucose 98, Calcium 8.9, Total Bilirubin 0.6, AST 26, ALT 20, Alkaline Phosphatase 47, Troponin I < 0.01, Total Protein 7.8, Albumin 4.4, Globulin 3.4 H, Albumin/Globulin Ratio 1.3, Lipase 74, HIV 1&2 Antibody Rapid Nonreactive 03/31/24 04:25: Troponin I < 0.01 03/31/24 01:41 03/31/24 01:41 Response Orders (Tests/Meds): ED MEDICATIONS Generic Name Dose Route Start Last Admin Trade Name Freq PRN Reason Stop Dose Admin Methocarbamol 500 mg 03/31/24 09:00 03/31/24 04:19 Methocarbamol 500mg Tablet PO 04/30/24 08:59 500 mg BID JAZMYNE Administration Discontinued Medications Generic Name Dose Route Start Last Admin Trade Name Freq PRN Reason Stop Dose Admin Ketorolac Tromethamine 30 mg 03/31/24 01:39 03/31/24 01:45 Ketorolac 30mg/Ml Vial IV 03/31/24 01:40 30 mg ONCE ONE Administration Morphine Sulfate 4 mg 03/31/24 01:39 03/31/24 01:45 Morphine 4mg/Ml Syringe IV 03/31/24 01:40 4 mg ONCE ONE Administration Ondansetron HCl 4 mg 03/31/24 01:39 03/31/24 01:45 Ondansetron 4mg/2ml Vial IV 03/31/24 01:40 4 mg ONCE ONE Administration Oxycodone HCl 5 mg 03/31/24 04:15 03/31/24 04:18 Oxycodone 5mg Immediate Release Tablet PO 03/31/24 04:16 5 mg ONCE ONE Administration ORDERS Category Date Time Status CXR 2 view (NOT portable) [XR chest 2V] Stat Exams 03/31/24 01:32 Completed POCUS Point of Care (ER Only) Stat Exams 03/31/24 04:44 Ordered CBC w/Auto Diff [Complete Blood Count Auto Diff] Stat Lab 03/31/24 01:41 Completed CMP [Comprehensive Metabolic Panel] Stat Lab 03/31/24 01:41 Completed D-Dimer Stat Lab 03/31/24 01:41 Completed HIV (1&2) Antibody Rapid Stat Lab 03/31/24 01:41 Completed Hep C Ab with Reflex to RNA Stat Lab 03/31/24 01:41 Received Lipase Stat Lab 03/31/24 01:41 Completed PT INR [Prothrombin Time INR] Stat Lab 03/31/24 01:41 Completed Trop I [Troponin I] Stat Lab 03/31/24 01:41 Completed Troponin I Q3H Lab 03/31/24 04:25 Completed Troponin I Q3H Lab 03/31/24 07:45 Ordered MDM Narrative Medical Decision Narrative: In summary, this 38-year-old male with a complicated pulmonary history as documented above presents to the emergency department today with chest pain and shortness of breath. On initial evaluation patient is hemodynamically stable, afebrile, lungs do not demonstrate any adventitious sounds however there are diminished breath sounds on the left. Diffuse upper abdominal tenderness to palpation when palpating up under the ribs. Differential diagnosis includes but is not limited to pneumothorax, pleural effusion, hemidiaphragm elevation, pneumonia, ACS, PE. Risk of PEs increases patient is on TRT. I considered the possibility of pancreatitis, also considered aortic dissection I have extremely low suspicion for this given the way patient characterizes his pain and the reproducibility of it on exam. Based on these concerns, I ordered serum labs, cardiac workup, dimer, chest x-ray. ECG personally interpreted demonstrates sinus rhythm with borderline shortened [place] but no delta wave, no WPW, abnormal axis, normal QTc, T wave inversions in lead I, II, aVL. No STEMI. ECG does have changes from previous. Patient received Toradol, morphine, Zofran for treatment. Labs personally reviewed demonstrate trace leukocytosis with WBC 11.2, nonspecific and nonactionable, mild anemia with hemoglobin 13.9, normal platelets, PT/INR normal, CMP nonactionable, initial troponin undetectably low at less than 0.01, lipase normal at 74. XR personally interpreted demonstrates findings similar to previous however the left hemidiaphragm elevation actually appears slightly improved from prior. There is a small left pleural effusion, I do not appreciate lobar infiltrate. See radiology read for final interpretation. On reassessment patient's pain is significantly improved though it is slightly starting to come back. He received oral oxycodone. He is resting comfortably now. His D-dimer was negative which is reassuring against PE and aortic dissection, I did perform aortic ultrasound and did not appreciate any findings of aneurysm or dissection. See ultrasound note. Given patient's extensive pulmonary history and history of diaphragmatic complications, I believe he requires close follow-up with pulmonology. I referred him to Dr. Ocasio for this purpose. He states he is supposed to have follow-up with him anyway, so he is going to call first thing this morning. I believe the most likely etiology of patient's pain is from overexertion after an extended period of not working out likely causing muscle spasm and diaphragmatic irritation in the setting of his known pulmonary abnormalities. Workup is reassuring against life-threatening cause. Short course of oxycodone was prescribed for continued management since he stated the pain was so severe earlier that he was not even able to help with his . Patient was given instructions on symptomatic management, follow up instructions, and return precautions for the emergency department. Patient indicated understanding and was discharged in stable condition.
--- NOTE | 2024-03-31 01:43 | PC.NURSE ---
Pt in XRAY
[2024-03-31] MEDS: KETOROLAC 30MG/ML VIAL 30 MG IV (01:45)
[2024-03-31] MEDS: ONDANSETRON 4MG/2ML VIAL 4 MG IV (01:45)
[2024-03-31] MEDS: MORPHINE 4MG/ML SYRINGE 4 MG IV (01:45)
[2024-03-31 01:49] LABS: Basophils # 0.1 K/mm3 (0-0.2); Basophils % 0.7 % (0.1-2.0); Eosinophils # 0.1 K/mm3 (0.0-0.4); Eosinophils % 0.8 % (0.1-12.0); Hematocrit 43.8 % (42.0-52.0); Hemoglobin 13.9 g/dL (14.1-18.0); Lymphocytes # 2.3 K/mm3 (0.7-4.5); Lymphocytes % 20.9 % (10-50); Mean Corpuscular HGB Conc 31.8 g/dL (31.8-35.4); Mean Corpuscular Hemoglobin 23.5 pg (27.0-31.2); Mean Corpuscular Volume 73.9 fl (80-94); Mean Platelet Volume 8.2 fl (7.4-10.4); Monocytes # 0.7 K/mm3 (0.1-1.0); Monocytes % 6.4 % (1.7-9.3); Neutrophils % 71.2 % (37.0-80.0); Platelet Count 224 K/mm3 (142-424); Red Blood Count 5.93 M/mm3 (4.60-6.20); Red Cell Distribution Width 15.5 % (11.5-17.5); White Blood Count 11.2 K/mm3 (4.8-10.8)
[2024-03-31 01:58] LABS: Alanine Aminotransferase 20 U/L (12-78); Albumin Level 4.4 g/dl (3.5-5.0); Albumin/Globulin Ratio 1.3 (1.1-1.8); Alkaline Phosphatase 47 U/L (38-126); Anion Gap 9.6 mEq/L (5-15); Aspartate Amino Transferase 26 U/L (17-59); Bilirubin,Total 0.6 mg/dl (0.2-1.3); Blood Urea Nitrogen 18 mg/dl (9-20); Calcium 8.9 mg/dl (8.4-10.2); Carbon Dioxide 29 mmol/L (22.0-30.0); Chloride 100 mmol/L (98-107); Creatinine Clearance Estimated 152 mL/min (50-200); Estimated Glomerular Filt Rate 84 ml/min (>60); GFR (African American) 102 ML/MIN (>60); Globulin 3.4 g/dL (1.3-3.2); Glucose 98 mg/dl (74-100); INR 0.96 (0.9-1.1); Potassium 3.6 mmoL/L (3.5-5.1); Prothrombin Time 10.8 seconds (10.1-12.5); Sodium 135 mmol/L (136-145); Total Protein,Serum 7.8 g/dl (6.3-8.2)
[2024-03-31 02:00] VITALS: BP 147/97; PULSE 68; O2SAT 94
[2024-03-31 02:10] LABS: D-Dimer 0.35 ug/mL (0.0-0.5)
[2024-03-31 02:29] LABS: Troponin I < 0.01 ng/ml (0.00-0.034)
[2024-03-31 02:30] VITALS: BP 144/91; PULSE 80; O2SAT 95
[2024-03-31 02:44] LABS: HIV (1&2) Antibody Rapid NONREACTIVE (NONREACTIVE)
[2024-03-31 03:00] VITALS: BP 131/87; PULSE 80; O2SAT 95
[2024-03-31 03:30] VITALS: BP 121/78; PULSE 75; O2SAT 96
[2024-03-31] MEDS: OXYCODONE 5MG IMMEDIATE RELEASE TABLET 5 MG PO (04:18)
[2024-03-31] MEDS: METHOCARBAMOL 500MG TABLET 500 MG PO (04:19)
[2024-03-31 04:41] LABS: Lipase 74 U/L (23-300)
[2024-03-31 04:54] LABS: Troponin I < 0.01 ng/ml (0.00-0.034)
[2024-03-31 05:31] VITALS: BP 127/86; PULSE 63; RESP 18; TEMP 36.5; O2SAT 95
[2024-04-01 10:14] LABS: HCV Ab Non Reactive (Non Reactive)
== END 2024-03-31 05:35 | disposition home or self-care (01) ==
PROVIDERS: Emergency Provider Emergency Medicine
DX: J90 Pleural effusion, not elsewhere classified (principal); R07.9 Chest pain, unspecified; R06.02 Shortness of breath; R06.00 Dyspnea, unspecified; M54.9 Dorsalgia, unspecified
CPT/HCPCS: 71046; 80053; 83690; 84484; 85025; 85378; 85610; 86803; 87389; 93005; 96374; 96375; 99285; J1885; J2270; J2405

== ENCOUNTER 2024-04-28 10:09 | Emergency (ER) | payer BC, SELFPAY ==
[2024-04-28 10:30] VITALS: BP 106/73; PULSE 78; RESP 19; TEMP 37; O2SAT 99; BMI 30.6
--- NOTE | 2024-04-28 10:39 | ED_ITS ---
Discharge Plan Disposition Patient Disposition: Home, Self-Care Condition: Good Prescriptions Prescriptions: New penicillin V potassium 500 mg tablet 500 mg PO BID Qty: 20 0RF No Action Linzess 290 mcg capsule 290 mcg PO DAILY Qty: 30 3RF Rx Instructions: Please take 1 capsule p.o. every morning omeprazole 40 mg capsule,delayed release(DR/EC) 40 mg PO DAILY Patient Comments: TAKE 1 CAPSULE BY MOUTH ONCE DAILY IN THE MORNING 30 MINUTES BEFORE EATING Referrals Follow up/Referrals: Pretty Sin PA [Primary Care Provider] - See instructions Activity Restrictions/Add. Instructions Additional Instructions/Restrictions: *Monitor Temp, Over the counter Motrin or Tylenol as directed/as needed Tylenol every 4 hours and Motrin every 6 hours (as long as your family doctor has told you that you can take it) for fever or pain. and straight to ER if unable to lower temp less than 101.0 after medication given *Warm salt water gargles may help to soothe the throat *Throat Lozenges? *Warm fluids like tea with honey may help to soothe the throat? *Sleep elevated *Humidifier/Vaporizer *If you did not take Penicillin shot or was unable to, start taking antibiotic immediately and make sure that you take it for the FULL length of time although you should start to feel better in 24-48 hours *change toothbrush and toothpaste 24-48 hours after starting to take antibiotics so you do not reinfect yourself Monitor Temp. Tylenol and/or Ibuprofen as needed. ER if fever is no less than 101 despite alternating Tylenol and Ibuprofen * Encourage fluids, water, Gatorade, powerade, pedialyte if infant/toddler/or child *Cold fluids, popsicles and ice cream may feel good on his throat Follow up IMMEDIATELY for new or worsening symptoms or no Noticeable improvement over the next 48-72 hours. 911 for difficulty breathing or swallowing Clinical Impressions Clinical Impression: Strep throat Stand Alone Forms Stand Alone Forms: Work/School Release Instructions Patient Instructions: DI for Strep Throat, Strep Throat, Penicillin V Potassium Print Language Print Language: Mauritian Discharge ED Provider: Kelin Field [facility] [place] HPI General Stated complaint: sore throat, runny nose Mode of Arrival: Ambulatory Source of Information: Patient Limitations: No Limitations Time Seen by Provider: 04/28/24 10:39 Description of Symptoms (Recalled from Triage Doc. by RN): PATIENT C/O RUNNY NOSE AND SORE THROAT THAT STARTED THIS MORNING HEENT Symptoms (Recalled from RN notes): Yes Resp Symptoms (Recalled from RN notes): No Skin Symptoms (Recalled from RN notes): No MS Symptoms (Recalled from RN notes): No Functional Status (Recalled from RN notes): WNL History of Present Illness Provider Complaint: Patient states that he woke up in the middle of the night with his throat hurting, runny nose and feeling achy States that it hurts when he swallows States he was worried he may have strep throat so he came in Related Data Home Medications ?Medication ?Instructions ?Recorded ?Confirmed omeprazole 40 mg capsule,delayed 40 mg PO DAILY 04/28/24 04/28/24 release Previous Rx's ?Medication ?Instructions ?Recorded linaclotide 290 mcg capsule 290 mcg PO DAILY #30 caps 04/27/24 (Linzess) penicillin V potassium 500 mg 500 mg PO BID #20 tabs 04/28/24 tablet Allergies Allergy/AdvReac Type Severity Reaction Status Date / Time No Known Allergies Allergy Verified 03/18/24 08:59 Worker's Comp Is this a Worker's Comp case?: No [facility] Disclaimer: The information contained in this section may have been updated after the patient was seen, as this information can be updated by other users. Medical History (Updated 04/28/24 @ 10:47 by Kelin Field APRN) GERD (gastroesophageal reflux disease) Abnormal computerized axial tomography of chest Chronic cough Abnormal EKG Allergies Multiple lung nodules on CT Atypical pneumonia Dyspnea on exertion Elevated diaphragm Surgical History History of bronchoscopy History of thoracentesis History of thoracotomy History of thumb surgery History of umbilical hernia repair History of shoulder surgery Family History Other Family history of cancer Hypertension Social History Smoking Status: Never smoker alcohol intake: never substance use type: denies use current occupational status: employed Travel in the last 8 weeks: None household members: spouse housing: house lives independently: Yes marital status: service: Yes long term: No caffeine: No ROS Obtained: Yes All systems reviewed & no additional complaints except as documented and Yes Systems reviewed as appropriate & no additional complaints except as documented Constitutional Constitutional: Reports system reviewed and no additional complaints, except as documented, Reports as per HPI, Reports body ache and Reports chills ENT Ears, Nose, Mouth, and Throat: Reports system reviewed and no additional complaints, except as documented, Reports as per HPI and Reports sore throat Cardiovascular Cardiovascular: Reports system reviewed and no additional complaints, except as documented and Reports as per HPI Respiratory Respiratory: Reports system reviewed and no additional complaints, except as documented and Reports as per HPI Gastrointestinal Gastrointestingal: Reports system reviewed and no additional complaints, except as documented and as per HPI Physical Exam General General appearance: alert and in no apparent distress ENT ENT exam: Present mucous membranes moist Expanded ENT Exam Throat exam: Present tonsillar erythema Respiratory Respiratory exam: Present normal lung sounds bilaterally; Absent respiratory distress or wheezes Cardiovascular Cardiovascular exam: Present regular rate, normal rhythm and normal heart sounds Neurological Exam Neurological exam: Present alert, oriented X3 and normal gait Medical Decision Making Medical Records Screening: Per USPSTF and CDC recommendations, given the prevalence of disease in our region, it is our hospital?s policy to screen for HIV and viral Hepatitis for all patients aged 18 and over and those with ongoing risk factors. Girma Inquiry Pt receiving controlled substance: No Girma was queried for this patient: No Vital Signs: 04/28/24 10:30 Temperature 98.6 F Temperature Source Oral Pulse Rate [Left Brachial] 78 Respiratory Rate 19 Blood Pressure [Left Arm] 106/73 L Blood Pressure Mean [Left Arm] 84 Blood Pressure Source [Left Arm] Automatic Cuff Blood Pressure Position [Left Arm] Sitting 02 Sat by Pulse Oximetry 99 Oxygen Delivery Method Room Air Lab Data Lab results reviewed: Yes I reviewed the patient's lab results.
[2024-04-28 10:46] LABS: UTC Strep Screen (Rapid) Positive (Negative)
[2024-04-28 10:47] VITALS: BP 106/73; PULSE 78; RESP 19; TEMP 37; O2SAT 99
== END 2024-04-28 10:52 | disposition home or self-care (01) ==
PROVIDERS: Emergency Provider Nurse Practitioner; PCP Student in an Organized Health Care Education/Training Program
DX: J02.0 Streptococcal pharyngitis (principal); R68.83 Chills (without fever)
CPT/HCPCS: 87880; 99212; G0381

== ENCOUNTER 2024-06-23 08:00 | Outpatient (RCR) | payer OTHER, SELFPAY | END 2024-06-23 23:59 | disposition home or self-care (01) | LOC: PT 08:00 | PROVIDERS: Visit Provider Physician Assistant | DX: M51.369 Other intervertebral disc degeneration, lumbar region without mention of lumbar back pain or lower extremity pain (principal) | CPT/HCPCS: 20561; 97012; 97014; 97110; 97140; 97163; 97164; G0283 ==

== ENCOUNTER 2024-06-30 14:26 | Outpatient (CLI) | payer BC, SELFPAY ==
--- NOTE | 2024-06-30 14:27 | US_ITS ---
FINAL REPORT CLINICAL HISTORY: renal cyst COMPARISON: None FINDINGS: RENAL ULTRASOUND Ultrasound images of the kidneys were obtained. The right kidney measures 10.5 cm in length. It is normal echogenicity. There is a 2.2 cm cyst in the right kidney. There is no hydronephrosis. The left kidney measures 11.3 cm in length. It is normal echogenicity. There is no hydronephrosis. IMPRESSION: Right renal cyst. Reviewed, Interpreted and Dictated by Tr Narayan MD Transcribed by Nicole Vitale Authenticated and [facility]
== END 2024-06-30 23:59 | disposition home or self-care (01) ==
LOC: RAD 14:27
PROVIDERS: PCP Student in an Organized Health Care Education/Training Program; Visit Provider Student in an Organized Health Care Education/Training Program
DX: N28.1 Cyst of kidney, acquired (principal)
CPT/HCPCS: 76770

== ENCOUNTER 2024-07-10 08:00 | Outpatient (RCR) | payer BC, SELFPAY ==
--- NOTE | 2024-06-25 19:34 | HMH.PTOPEV ---
PT Outpatient Evaluation Rehab PT Outpatient Evaluation Start: 06/25/24 09:01 Freq: Status: Active Protocol: Document 06/25/24 19:05 JET (Rec: 06/25/24 19:32 JET [id number]) E-signed By London Viramontes, PT Outpatient Therapy Subjective History Subjective History Patient is a 39 year old male presenting to outpatient PT with reports of R shoulder pain S/P labral repair x 2. Biceps tenodesis noted after sx x 2. 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 Significant R GHJ instability/ROM deficits noted . Other comorbidities include hx of LS pain with RLE radicular symptoms. Chief Complaint Pain,Stiff,Gives out/Unstable, Weakness Symptom Type Stabbing,Burning,Numbness, Tingling Symptoms Relieved By Rest/Positioning Symptoms Aggravated By Physical Activity,Lifting Prior Functional Limitations None Current Functional Limitations Reaching,Lifting,Housework, Dressing,Driving,Sleeping, Recreation Activity Symptom Description Intermittent Level of pain today (0-10) 0 Pain scale - at its best (0-10) 0 Pain scale - at its worst (0-10) 9 Shoulder/Elbow Eval Shoulder Objective Measurements Palpation Tenderness tenderness shoulder exam standard right tenderness over the bicipital tendon right shoulder exam standard Shoulder Palpation Findings Tenderness Shoulder Palpation Overall Comment R UT/prox LHB 3/4 Shoulder ROM Right Shoulder ROM Limitations Soft Tissue Tightness Shoulder Abduction Active Range of 60 Motion (degrees) Shoulder Flexion Active Range of Motion 118 (degrees) Query Text: Shoulder External Rotation Active Range 60 of Motion (degrees) Shoulder Internal Rotation Active Range 34 of Motion (degrees) Shoulder MMT Shoulder Abduction Strength Grade 3+ Fair+ Shoulder Flexion Strength Grade 4- Good- Shoulder External Rotation Strength 4- Good- Grade Shoulder Internal Rotation Strength 4 Good Grade Elbow Objective Measurements QuickDASH Activities Please rate your ability to do the following activities in the last week by selecting the number below the appropriate response. 1. Open a tight or new jar. Severe difficulty 2. Do heavy filer repairer (e.g., wash Severe difficulty ramirez, floors). 3. Carry a shopping bag or briefcase. Severe difficulty 4. Wash your back. Moderate difficulty 5. Use a knife to cut food. Severe difficulty 6. Recreational activities in which you Severe difficulty take some force or impact through your arm, shoulder, or hand (e.g., golf, hammering, tennis, etc.). 7. During the past week, to what extent Extremely has your arm, shoulder or hand problem interfered with your normal social activities with family, friends, neighbors or groups? 8. During the past week, were you Very limited limited in your work or other regular daily activites as a result of your arm, shoulder or hand problem? 9. Arm, shoulder or hand pain. Severe 10. Tingling (pins and needles) in your Severe arm, shoulder or hand. 11. During the past week, how much So much difficulty that I can' difficulty have you had sleeping because t sleep of the pain in your arm, shoulder or hand? Quick DASH 45 Work Module (optional) The following questions ask about the impact of your arm, shoulder or hand problem on your ability to work (including homemaking if that is your main work role). Please indicate what your job/work is: [employer] 1. Using your usual technique for your Moderate difficulty work? 2. Doing your usual work because of arm, Severe difficulty shoulder or hand pain? 3. Doing your work as well as you would Moderate difficulty like? 4. Spending your usual amount of time Unable doing your work? Quick Dash Work Module Score 15 Outpatient Therapy Assessment Impairments Problems/Impairmments Palpation Tenderness,Impaired Range of Motion,Impaired Strength,Impaired Driving, Impaired Lifting,Impaired Dressing,Impaired Shower/ Bathing,Impaired Household Care,Impaired Recreational Activities,Impaired Running, Impaired Work Activities, Impaired Desk/Computer Activities,Subjective C/O Pain Prognosis Rehab Potential Good Clinical Impression Consistent with Diagnosis Yes Short Term Goals Number of Weeks 2 Decrease Subjective C/O Pain Yes: 510 at worst Patient to be Ind w/ HEP Yes Can Sorter Goals Number of Weeks 4-6 Decreased Palpation Tenderness Yes: 06/27 at worst Increase Range of Motion Yes: WNL Increase Strength Yes: 10/26 R GHJ Increase Ability to Drive/Ride in Car Yes Restore Ability to Lift Objects to Yes: 20 lbs without difficulty Shoulder Level Restore Ability to Lift Objects Overhead Yes Improve Ability For Household Care Yes Return to Recreational Activities Yes Improve Tolerance to Work Activities Yes Decrease Subjective C/O Pain Yes: 2/10 at worst Outpatient Therapy Plan of Care Treatment Plan May Include Therapeutic Exercise Including Home Yes Exercise Program Manual Therapy Techniques Yes Neuromuscular Re-education Yes Therapeutic Activities to Return to Yes Previous Functional/Work Level Gait Training Yes Mechanical Traction Yes Dry Needling Yes Thermal Modalities Yes Electrical Stimulation Yes Ultrasound/Phonophoresis Yes Iontophoresis Yes Vasopneumatic Compression Pump Yes Massage Yes Eval/Re-Eval Yes Frequency Times per week 2-3 Duration Number of Weeks 4-6 Addendums This patient is a candidate for social No or vocational rehab? Patient/Guardian verbally acknowledges Yes understanding of treatment program and consents to further treatment? Patient/Guardian verbally acknowledges Yes understanding of diagnosis, prognosis and goals for treatment? Eval Complexity PT Charges 20865 - Moderate Complexity PHYSICIAN CERTIFICATION: I certify the specified therapy services for Ankit Rangel are required, authorized, and reviewed every 30 days.
== END 2024-07-10 23:59 | disposition home or self-care (01) ==
LOC: PT 08:00
PROVIDERS: PCP Student in an Organized Health Care Education/Training Program; Visit Provider Student in an Organized Health Care Education/Training Program
DX: M25.511 Pain in right shoulder (principal); G89.29 Other chronic pain
CPT/HCPCS: 97014; 97016; 97110; 97140; 97163; 97530; 97535; G0283

== ENCOUNTER 2024-07-10 09:00 | Outpatient (RCR) | payer OTHER, SELFPAY | END 2024-07-10 23:59 | disposition home or self-care (01) | LOC: PT 09:00 | PROVIDERS: Visit Provider Physician Assistant | DX: M51.360 Other intervertebral disc degeneration, lumbar region with discogenic back pain only (principal) | CPT/HCPCS: 20561; 97014; 97110; 97164; G0283 ==

== ENCOUNTER 2024-07-11 23:31 | Emergency (ER) | payer BC, SELFPAY ==
[2024-07-11 23:32] VITALS: BP 131/78; PULSE 64; RESP 22; TEMP 36.8; O2SAT 99; BMI 42.1
[2024-07-11 23:49] VITALS: PULSE 62; O2SAT 99
--- NOTE | 2024-07-11 23:50 | ECG_ITS ---
APPROVED REPORT Exam: Resting ECG HR:53 bpm ECG Measurements Heart Rate 53 AXES QRSd 100 QRS 88 QT 433 T 88 QTc 416 Conclusion Atrial flutter versus sinus rhythm Artifact complicates interpretation PROBABLE ANTEROLATERAL MYOCARDIAL INFARCTION , OF INDETERMINATE AGE [35 ms Q WAVE IN I/aVL/V3-V6] No STEMI, artifact significantly limits interpretation, see repeat ECG Electronically signed by : CHUCK FARRIS, 07/12/2024 04:38:13
--- NOTE | 2024-07-11 23:53 | CT_ITS ---
PROCEDURE INFORMATION: Exam: CTA Chest With Contrast Exam date and time: 07/12/2024 1:13 AM Age: 39 years old Clinical indication: Pain; Chest pressure; Additional info: Cp SOA TECHNIQUE: Imaging protocol: Computed tomographic angiography of the chest with contrast. Exam focused on the arteries. 3D rendering (Not supervised by radiologist): MIP and/or 3D reconstructed images were created by the technologist. Radiation optimization: All CT scans at this facility use at least one of these dose optimization techniques: automated exposure control; mA and/or kV adjustment per patient size (includes targeted exams where dose is matched to clinical indication); or iterative reconstruction. Contrast material: ISOVUE; Contrast volume: 70 ml; Contrast route: INTRAVENOUS (IV); COMPARISON: CT CHEST WO CON 11/16/2022 10:59 AM FINDINGS: Pulmonary arteries: Normal. No pulmonary emboli. Aorta: Unremarkable. No aortic aneurysm. No aortic dissection. Lungs: Similar complex left lateral sulcus postsurgical changes with similar heterogeneous linear calcification. Similar likely involving left basilar rounded atelectasis. Incidental benign right apical calcified granuloma. Pleural spaces: Partially calcified left hemidiaphragmatic pleural plaque. Heart: Unremarkable. No cardiomegaly. No pericardial effusion. Mediastinal space: Stable rightward mediastinal shift. Lymph nodes: Unremarkable. No enlarged lymph nodes. Diaphragm: Persistent elevation of left hemidiaphragm. Bones/joints: Unremarkable. No acute fracture. Soft tissues: Unremarkable. IMPRESSION: 1. No central or segmental pulmonary arterial embolism identified. 2. Similar rightward mediastinal shift possibly reflecting mass effect from chronic elevation of left hemidiaphragm, postsurgical changes of left lateral sulcus and left basilar rounded atelectasis.
--- NOTE | 2024-07-11 23:57 | CT_ITS ---
PROCEDURE INFORMATION: Exam: CT Abdomen And Pelvis With Contrast Exam date and time: 07/12/2024 1:13 AM Age: 39 years old Clinical indication: Abdominal pain; Additional info: Ruq pain TECHNIQUE: Imaging protocol: Computed tomography of the abdomen and pelvis with contrast. 3D rendering (Not supervised by radiologist): MIP and/or 3D reconstructed images were created by the technologist. Radiation optimization: All CT scans at this facility use at least one of these dose optimization techniques: automated exposure control; mA and/or kV adjustment per patient size (includes targeted exams where dose is matched to clinical indication); or iterative reconstruction. Contrast material: ISOVUE; Contrast volume: 70 ml; Contrast route: IV; COMPARISON: CT ABDOMEN PELVIS W CON 08/26/2022 1:05 PM FINDINGS: Liver: Similar left hepatic lobar hypodensity probably representing cyst. Mildly heterogeneous liver. No mass. Gallbladder and biliary ducts: Normal. No calcified stones. No ductal dilation. Pancreas: Normal. No ductal dilation. Spleen: Normal. No splenomegaly. Adrenal glands: Normal. No mass. Kidneys and ureters: Stable right renal cyst. Otherwise unremarkable kidneys. Stomach and bowel: Unremarkable. No obstruction. No mucosal thickening. Appendix: No evidence of appendicitis. Intraperitoneal space: Unremarkable. No free air. No significant fluid collection. Vasculature: Unremarkable. No abdominal aortic aneurysm. Lymph nodes: Unremarkable. No enlarged lymph nodes. Urinary bladder: Unremarkable as visualized. Reproductive: Unremarkable as visualized. Bones/joints: Unremarkable. No acute fracture. Soft tissues: Unremarkable. IMPRESSION: No acute findings identified.
[2024-07-12] VITALS (8 sets, daily range): BP systolic 111–128; BP diastolic 72–84; PULSE 50–66; RESP 16; TEMP 36.6; O2SAT 92–99
[2024-07-12] MEDS: ONDANSETRON 4MG/2ML VIAL 4 MG IV
[2024-07-12 00:01] LABS: Basophils # 0.1 K/mm3 (0-0.2); Basophils % 0.3 % (0.1-2.0); Eosinophils # 0.1 K/mm3 (0.0-0.4); Eosinophils % 0.3 % (0.1-12.0); Hematocrit 45.2 % (42.0-52.0); Lymphocytes # 3.3 K/mm3 (0.7-4.5); Lymphocytes % 21.9 % (10-50); Mean Corpuscular Hemoglobin 23.1 pg (27.0-31.2); Mean Corpuscular Volume 74.5 fl (80-94); Mean Platelet Volume 11.3 fl (7.4-10.4); Monocytes # 1.2 K/mm3 (0.1-1.0); Monocytes % 7.8 % (1.7-9.3); Neutrophils # 10.4 K/mm3 (1.8-7.8); Platelet Count 259 K/mm3 (142-424); Red Blood Count 6.07 M/mm3 (4.60-6.20); Red Cell Distribution Width 16.6 % (11.5-17.5); White Blood Count 15.1 K/mm3 (4.8-10.8)
[2024-07-12 00:05] LABS: Chloride 97 mmol/L (98-107)
[2024-07-12 00:06] LABS: Albumin Level 4.7 g/dl (3.5-5.0); Potassium 4.2 mmoL/L (3.5-5.1); Sodium 134 mmol/L (136-145)
[2024-07-12 00:07] LABS: INR 0.93 (0.9-1.1); Prothrombin Time 10.3 seconds (9.2-12.1)
[2024-07-12 00:07] LABS: Lactate Venous 1.8 mmol/L (0.4-2.0); VBG Base Excess 4.1 mmol/L (-2.4-2.3); VBG HCO3 29.7 mmol/L (23-30); VBG Oxygen Saturation 48.6 % (50-70); VBG PCO2 55.1 mmol/L (35-51); VBG PH 7.35 mmol/L (7.31-7.41); VBG PO2 28.4 mmol/L (28-40); VBG Total CO2 31.4 mmol/L (23-27)
[2024-07-12 00:08] LABS: Blood Urea Nitrogen 16 mg/dl (9-20); Creatinine Clearance Estimated 74 mL/min (50-200); Estimated Glomerular Filt Rate 84 ml/min (>60); GFR (African American) 101 ML/MIN (>60)
[2024-07-12 00:09] LABS: Alanine Aminotransferase 25 U/L (12-78); Albumin/Globulin Ratio 1.5 (1.1-1.8); Alkaline Phosphatase 53 U/L (38-126); Anion Gap 9.2 mEq/L (5-15); Aspartate Amino Transferase 27 U/L (17-59); Bilirubin,Total 0.4 mg/dl (0.2-1.3); Calcium 9.4 mg/dl (8.4-10.2); Carbon Dioxide 32 mmol/L (22.0-30.0); Globulin 3.2 g/dL (1.3-3.2); Glucose 106 mg/dl (74-100); Total Protein,Serum 7.9 g/dl (6.3-8.2)
[2024-07-12 00:14] LABS: MANUAL DIFFERENTIAL MANUAL DIFFERENTIAL (MANUAL DIFF)
[2024-07-12] MEDS: METHOCARBAMOL 500MG TABLET 500 MG PO (00:16)
[2024-07-12] MEDS: HYDROMORPHONE 2MG/ML SYRINGE 0.5 MG IV (00:16)
--- NOTE | 2024-07-12 00:22 | ED_ITS ---
Discharge Plan Disposition Patient Disposition: Home, Self-Care Condition: Fair Prescriptions Prescriptions: New methocarbamol 500 mg tablet 500 mg PO Q6H Qty: 20 0RF lidocaine 5 % adhesive patch,medicated See Rx Instructions .ROUTE .COMPLEX Qty: 15 0RF Rx Instructions: leave on most painful area for up to 12 hrs, remove and leave off for 12 hours before using a new patch No Action Linzess 290 mcg capsule 290 mcg PO DAILY Qty: 30 3RF Rx Instructions: Please take 1 capsule p.o. every morning omeprazole 40 mg capsule,delayed release(DR/EC) 40 mg PO DAILY Patient Comments: TAKE 1 CAPSULE BY MOUTH ONCE DAILY IN THE MORNING 30 MINUTES BEFORE EATING Referrals Follow up/Referrals: Pretty Sin PA [Primary Care Provider] - See instructions Tanner Wilkes MD [Physician] - See instructions (Needs close follow-up of sharp right sided chest pain without obvious cause) Activity Restrictions/Add. Instructions Additional Instructions/Restrictions: You were evaluated in the ER and are appropriate for discharge at this time. Take Tylenol, ibuprofen if needed for pain, do not exceed the recommended dose on the bottle. Drink water and eat a small snack each time you take these medications to avoid side effects. Use the prescribed lidocaine patches as directed. Take the prescribed methocarbamol (muscle relaxer) if needed for muscle spasm. This medication may make you sleepy, do not drive or operate machinery after taking this medication Call Dr. Wilkes's pulmonology office first thing Saturday to make an appointment for close follow-up. Return to the ER with new, worsening, or otherwise concerning symptoms. Clinical Impressions Clinical Impression: Rib pain on right side, Muscle spasm Instructions Patient Instructions: DI for Acute Abdominal Pain Print Language Print Language: [place] Discharge ED Provider: Yared Rai Adult [facility] General Chief complaint: Abdominal Pain Stated complaint: abd pain Time Seen by Provider: 07/11/24 23:53 Mode of Arrival: Ambulatory Source of Information: Patient Limitations: No Limitations Description of Symptoms (Recalled from ER Triage Doc. by RN): Patient ambulatory to ED with complaints of RUQ pain since . Patient states that he thinks he over excerted himself while at work which caused muscle strain. Patient reports 10/10 pain and describes it as sharp/aching pain. Patient states that he has extensive PMH/lung issues and strained diaphram, and this pain reflects past pain. History of Present Illness HPI narrative: 39-year-old male with extensive past medical history including previous collapsed lung, prior thoracotomy presents to the ER with right upper quadrant pain for the last 2 days that has severely exacerbated tonight. 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 He states he was able to tolerate it the last few days but tonight it became severely worse. He reports 10 out of 10 pain sharp, aching. He states this pain is similar to past pain from his lung problems. He states he feels nauseous from the pain but has not had any vomiting, regular bowel movements, he has pain with breathing but is saturating well on room air. He was evaluated in the ER for similar episode and October but it was not this severe. He was able to be discharged review of records demonstrates he did not follow-up with pulmonology. No recent fevers, chills, cough, congestion, dizziness, headache, numbness, tingling, or weakness. Related Data Home Medications ?Medication ?Instructions ?Recorded ?Confirmed omeprazole 40 mg capsule,delayed 40 mg PO DAILY 04/28/24 06/05/24 release Previous Rx's ?Medication ?Instructions ?Recorded linaclotide 290 mcg capsule 290 mcg PO DAILY #30 caps 04/27/24 (Linzess) lidocaine 5 % topical patch See Rx Instructions topical 07/12/24 .COMPLEX #15 ea methocarbamol 500 mg tablet 500 mg PO Q6H #20 tabs 07/12/24 Allergies Allergy/AdvReac Type Severity Reaction Status Date / Time No Known Allergies Allergy Verified 06/05/24 13:22 [facility] Disclaimer: The information contained in this section may have been updated after the patient was seen, as this information can be updated by other users. Medical History GERD (gastroesophageal reflux disease) Abnormal computerized axial tomography of chest Chronic cough Abnormal EKG Allergies Multiple lung nodules on CT Atypical pneumonia Dyspnea on exertion Elevated diaphragm Surgical History History of bronchoscopy History of thoracentesis History of thoracotomy History of thumb surgery History of umbilical hernia repair X2 History of shoulder surgery Family History Other Family history of cancer Hypertension Social History Smoking Status: Never smoker alcohol intake: never substance use type: denies use current occupational status: employed Travel in the last 8 weeks: None household members: spouse housing: house lives independently: Yes marital status: service: Yes mcfp: No caffeine: No Have you lived/traveled outside [place] in past 30 days?: No Contact w/someone who lives/traveled outside US past 30 days?: No Exposure to someone with infectious disease in past 14 days?: No Do you have a fever (greater than 100.4 F or 38 C)?: No Have you tested positive for COVID-19: No Exposed to someone with COVID-19 in past 14 days?: No Do you have a sore throat?: No Do you have a cough?: No Do you have any weakness?: No Do you have any diarrhea?: No Are you experiencing any unusual bleeding?: No Do you have any muscle aches/pain?: No Do you have any abdominal pain?: No Are you experiencing loss of taste or smell?: No Other Medical History Have you received the Pneumonia Vaccine: No ROS Obtained: Yes Systems reviewed as appropriate & no additional complaints except as documented per HPI Physical Exam General General appearance: alert and in distress (Obviously in severe pain, tremulous and diaphoretic from the pain but nontoxic-appearing) Head Head exam: atraumatic and normocephalic Eye Eye exam: Present PERRL and EOMI ENT ENT exam: Present mucous membranes moist Neck Neck exam: Present normal inspection and full ROM Chest Chest inspection: Present symmetric chest wall rise and tenderness (Mild tenderness of the right lower lateral ribs without crepitus, deformity, ecchymosis, or findings of trauma) Respiratory Respiratory exam: Present normal lung sounds bilaterally (Good air movement throughout); Absent respiratory distress, wheezes or stridor Cardiovascular Cardiovascular exam: Present regular rate and normal rhythm Abdominal Exam Abdominal exam: Present soft, tenderness (Tenderness to palpation of the right upper quadrant) and guarding (Voluntary); Absent distention, rebound or rigidity Extremities Exam Extremities exam: Present full ROM Neurological Exam Neurological exam: Present alert and oriented X3; Absent motor sensory deficit Psychiatric Psychiatric exam: Present normal affect and normal mood Skin Skin exam: Present warm and dry Medical Decision Making Medical Records Medical records reviewed: Yes I reviewed the patient's medical records. Screening: Per USPSTF and CDC recommendations, given the prevalence of disease in our region, it is our hospital?s policy to screen for HIV and viral Hepatitis for all patients aged 18 and over and those with ongoing risk factors. Girma Inquiry Pt receiving controlled substance: No Vital Signs: 07/11/24 23:32 07/11/24 23:49 07/12/24 00:01 Temperature 98.3 F Temperature Source Oral Pulse Rate 62 63 Pulse Rate [Left] 64 Respiratory Rate 22 Blood Pressure 120/73 Blood Pressure [Right Arm] 131/78 Blood Pressure Mean [Right Arm] 95 Blood Pressure Source Blood Pressure Position Blood Pressure Position [Right Arm] Sitting 02 Sat by Pulse Oximetry 99 99 96 Oxygen Delivery Method 07/12/24 00:30 07/12/24 01:01 07/12/24 01:30 Temperature Temperature Source Pulse Rate 65 66 64 Pulse Rate [Left] Respiratory Rate Blood Pressure 111/79 116/76 Blood Pressure [Right Arm] Blood Pressure Mean [Right Arm] Blood Pressure Source Blood Pressure Position Blood Pressure Position [Right Arm] 02 Sat by Pulse Oximetry 97 94 L 92 L Oxygen Delivery Method 07/12/24 02:00 07/12/24 02:30 07/12/24 03:00 Temperature Temperature Source Pulse Rate 50 L 59 L 65 Pulse Rate [Left] Respiratory Rate Blood Pressure 128/78 120/81 119/84 Blood Pressure [Right Arm] Blood Pressure Mean [Right Arm] Blood Pressure Source Blood Pressure Position Blood Pressure Position [Right Arm] 02 Sat by Pulse Oximetry 97 97 96 Oxygen Delivery Method 07/12/24 03:31 Temperature 97.9 F Temperature Source Oral Pulse Rate 60 Pulse Rate [Left] Respiratory Rate 16 Blood Pressure 128/72 Blood Pressure [Right Arm] Blood Pressure Mean [Right Arm] Blood Pressure Source Automatic Cuff Blood Pressure Position Supine Blood Pressure Position [Right Arm] 02 Sat by Pulse Oximetry Oxygen Delivery Method Room Air Lab Data Lab Results 07/11/24 23:43: WBC 15.1 H, RBC 6.07, Hgb 14.0 L, Hct 45.2, MCV 74.5 L, MCH 23.1 L, MCHC 31.0 L, RDW 16.6, Plt Count 259, MPV 11.3 H, Neut % (Auto) 69.0, Lymph % (Auto) 21.9, Hinds % (Auto) 7.8, Eos % (Auto) 0.3, Baso % (Auto) 0.3, Neut # (Auto) 10.4 H, Lymph # (Auto) 3.3, Hinds # (Auto) 1.2 H, Eos # (Auto) 0.1, Baso # (Auto) 0.1, PT 10.3, INR 0.93, Sodium 134 L, Potassium 4.2, Chloride 97 L, C arbon Dioxide 32 H, Anion Gap 9.2, BUN 16, Creatinine 1.00, Estimated Creat Clear 74, Estimated GFR 84, Est GFR ( Amer) 101, Glucose 106 H, Calcium 9.4, Total Bilirubin 0.4, AST 27, ALT 25, Alkaline Phosphatase 53, Troponin I < 0.01, Total Protein 7.9, Albumin 4.7, Globulin 3.2, Albumin/Globulin Ratio 1.5, Lipase 69, HCV Ab FRAN w/Rflx PCR Qn Negative, HIV Ag/Ab Combo Qual Negative 07/12/24 00:05: VBG pH 7.35, VBG pCO2 55.1 H, VBG pO2 28.4, VBG HCO3 29.7, VBG Total CO2 31.4 H, VBG O2 Saturation 48.6 L, VBG Base Excess 4.1 H, VBG Lactic Acid 1.8 07/12/24 00:12: Lactate 1.4 07/11/24 23:43 07/11/24 23:43 Orders (Tests/Meds): ED MEDICATIONS Discontinued Medications Generic Name Dose Route Start Last Admin Trade Name Freq PRN Reason Stop Dose Admin Fentanyl Citrate 50 mcg 07/12/24 01:01 07/12/24 01:04 Fentanyl 250mcg/5ml Vial IV 07/12/24 01:02 50 mcg ONCE ONE Administration Hydromorphone HCl 1 mg 07/11/24 23:54 07/12/24 00:00 Hydromorphone 2mg/Ml Syringe IV 07/11/24 23:55 1 mg ONCE ONE Administration Hydromorphone HCl 0.5 mg 07/12/24 00:09 07/12/24 00:16 Hydromorphone 2mg/Ml Syringe IV 07/12/24 00:10 0.5 mg ONCE ONE Administration Hydromorphone HCl 0.5 mg 07/12/24 00:25 07/12/24 00:46 Hydromorphone 2mg/Ml Syringe IV 07/12/24 00:26 Not Given ONCE ONE Hydromorphone HCl 1 mg 07/12/24 00:28 07/12/24 00:34 Hydromorphone 2mg/Ml Syringe IV 07/12/24 00:29 1 mg ONCE ONE Administration Iopamidol 70 ml 07/12/24 01:24 07/12/24 01:25 Iopamidol-370 (76%);100ml Bottle IV 07/12/24 01:25 70 ml ONCE ONE Administration Lidocaine 1 each 07/12/24 01:30 07/12/24 01:36 Lidocaine 5% Transdermal Patch TP 07/12/24 01:31 1 each ONCE ONE Administration Methocarbamol 500 mg 07/12/24 00:09 07/12/24 00:16 Methocarbamol 500mg Tablet PO 07/12/24 00:10 500 mg ONCE ONE Administration Ondansetron HCl 4 mg 07/11/24 23:57 07/12/24 00:00 Ondansetron 4mg/2ml Vial IV 07/11/24 23:58 4 mg ONCE ONE Administration Sodium Chloride 50 ml 07/12/24 01:24 07/12/24 01:25 0.9 % Sodium Chloride 50 Ml Vial IV 07/12/24 01:25 50 ml ONCE ONE Administration Sodium Chloride 10 ml 07/12/24 01:24 07/12/24 01:25 Sodium Chloride 0.9% 10ml Syr (Rad Only) IV 08/11/24 01:23 10 ml NEEDED PRN Administration Maintain IV Site ORDERS Category Date Time Status CT abdomen pelvis w con Stat Cat Scan 07/11/24 23:[address] angio chest PE protocol Stat Cat Scan 07/11/24 23:53 Completed CBC w/Auto Diff [Complete Blood Count Auto Diff] Stat Lab 07/11/24 23:43 Results CMP [Comprehensive Metabolic Panel] Stat Lab 07/11/24 23:43 Completed HIV Combo Stat Lab 07/11/24 23:43 Completed Hepatitis C Ab Qual. W/ RFX Stat Lab 07/11/24 23:43 Completed Lactic Acid Stat Lab 07/12/24 00:12 Completed Lipase Stat Lab 07/12/24 00:00 Completed PT INR [Prothrombin Time INR] Stat Lab 07/11/24 23:43 Completed Trop I [Troponin I] Stat Lab 07/11/24 23:43 Completed VBG [Venous Blood Gas] Stat RT 07/12/24 00:05 Completed ECG Request Stat Y 07/11/24 23:53 Ordered Medical Decision Narrative: In summary, this 39-year-old male with comorbidities described in the HPI presents to the emergency department today with right upper quadrant pain. On initial evaluation patient is hemodynamically stable, afebrile, lungs clear bilaterally, tenderness to palpation of the right upper quadrant with voluntary guarding, no rebound, abdomen not rigid. Differential diagnosis includes but is not limited to pneumothorax, diaphragm spasm, PE, pulmonary infarct, ACS, cholelithiasis, cholecystitis, biliary pathology, pancreatitis, among others. Based on these concerns, I ordered serum labs, CT imaging, cardiac workup. ECG personally interpreted demonstrates difficult to interpret secondary to baseline artifact but appears to be sinus rhythm versus a flutter, rate 53, normal QTc, no STEMI, repeat ECG will be performed for better interpretation. Repeat ECG performed later and personally interpreted demonstrate sinus bradycardia, rate 51, patient does have a short WA interval but no delta wave, no WPW, normal QTc, no STEMI Patient received Dilaudid, Zofran, methocarbamol for treatment. Labs personally reviewed demonstrate leukocytosis with WBC 15.1 nonspecific and nonactionable, hemoglobin 14.0, stable from prior, normal platelets, PT/INR normal, VBG with normal pH, mildly elevated pCO2 but patient has no wheezing and is compensated. He has been holding his breath when he has pain and I believe this is likely elevating the pCO2. Lactic on VBG 1.8, chemistry lactic 1.4. Nonactionable. CMP nonactionable, troponin undetectably low less than 0.01 reassuring given patient's duration of symptoms over the last few days. Very reassuring against cardiac etiology. Lipase normal at 69 reassuring against pancreatitis.. Patient received low-dose fentanyl prior to CT to be able to lay flat. CTA PE personally interpreted does not demonstrate PE, patient has multiple postsurgical changes including right upper mediastinal shift and scarring however I do not appreciate obvious new intrathoracic pathology or pneumonia, see radiology read for final interpretation. CT abdomen pelvis also was personally interpreted and I do not appreciate cholecystitis or cholelithiasis, no other acute intra-abdominal pathology was identified. See radiology read for final interpretation. With reassuring CT imaging, lidocaine patch was applied. Patient has been resting more comfortably, he still reports pain but it is more controlled with all of the above-mentioned interventions. I do not believe there is any acute dangerous pathology at this time. My suspicion is highest that due to patient's previously known intrathoracic pathology and scar tissue that when he has muscle spasm or overexertion, it causes worse pain then would typically be expected. I am very reassured that there is no acute abnormality on labs or imaging. I did also consider the possibility of secondary gain however patient has reassuring PDMP, and he does not report visiting other sites for this pain previously. Review of records from [facility] demonstrates patient was seen in their sports medicine clinic on 07/06/2024. He received a right shoulder injection. Note demonstrates that at that time he was asymptomatic of the complaints that brought him to the ER today. I do not see visits in their system of similar chest/abdomen complaints in the last year. I discussed admission versus discharge with the patient. I offered him admission for pain control and possible inpatient evaluation with pulmonology, I also discussed that I thought it was reasonable to be discharged since there was not any acute dangerous etiology identified. Patient considered being admitted because he is still having pain but would prefer to be discharged at this time and follow-up outpatient with Dr. Wilkes. He admits he did not schedule the appointment after his last visit but knows he is due for routine follow-up with him. I have prescribed methocarbamol and lidocaine patches for outpatient management of pain. I also instructed the patient on [id number] medication use, close follow-up, and gave him strict return precautions for the ER. He indicated understanding and the patient was discharged in stable condition. Critical Care Critical Care Time Critical Care Time: No
[2024-07-12] MEDS: HYDROMORPHONE 2MG/ML SYRINGE 1 MG IV ×2 (00:34)
[2024-07-12 00:50] LABS: Lactic Acid 1.4 mmol/L (0.7-2.1)
[2024-07-12 00:51] LABS: Lipase 69 U/L (23-300); Troponin I < 0.01 ng/ml (0.00-0.034)
--- NOTE | 2024-07-12 00:52 | ECG_ITS ---
APPROVED REPORT Exam: Resting ECG HR:51 bpm ECG Measurements Heart Rate 51 AXES NE 100 P -1 QRSd 101 QRS 93 QT 431 T 91 QTc 409 Conclusion SINUS BRADYCARDIA WITH SHORT NE INTERVAL ANTEROLATERAL MYOCARDIAL INFARCTION , OF INDETERMINATE AGE [40+ ms Q WAVE IN I/aVL/V3-V6] ABNORMAL ECG INTERPRETATION BASED ON A DEFAULT AGE OF 40 YEARS No STEMI Electronically signed by : CHUCK FARRIS, 07/15/2024 07:12:53
[2024-07-12] MEDS: FENTANYL 250MCG/5ML VIAL 50 MCG IV (01:04)
[2024-07-12 01:22] LABS: HIV Combo NEGATIVE (Negative)
[2024-07-12] MEDS: IOPAMIDOL-370 (76%);100ML BOTTLE 70 ML IV (01:25)
[2024-07-12] MEDS: SODIUM CHLORIDE 0.9% 10ML SYR (RAD ONLY) 10 ML IV (01:25)
[2024-07-12] MEDS: 0.9 % SODIUM CHLORIDE 50 ML VIAL IV (01:25)
[2024-07-12 01:30] LABS: Hepatitis C Ab Qual. W/ RFX NEGATIVE (Negative)
[2024-07-12] MEDS: LIDOCAINE 5% TRANSDERMAL PATCH 1 EACH TP (01:36)
--- NOTE | 2024-07-12 03:32 | PC.NURSE ---
Patient IV removed. Catheter tip intact. Bleeding controlled.
--- NOTE | 2024-07-12 03:46 | PC.NURSE ---
Patient waiting on ride to get here
[2024-07-12 04:29] LABS: Eosinophils % 1 % (0-3); Lymphocytes % 29 % (10-50); Monocytes % 5 % (2-9); Neutrophils % 65 % (42-76); Platelet Estimate Normal; Target Cells 1+; Total Cells Counted 100
[2024-07-12 04:30] LABS: Anisocytosis 1+; Microcytosis 1+
== END 2024-07-12 04:10 | disposition home or self-care (01) ==
PROVIDERS: Emergency Provider Emergency Medicine; PCP Student in an Organized Health Care Education/Training Program
DX: R07.81 Pleurodynia (principal); M62.838 Other muscle spasm; R10.11 Right upper quadrant pain; R11.0 Nausea; R07.1 Chest pain on breathing; X50.0XXA Overexertion from strenuous movement or load, initial encounter; Y93.9 Activity, unspecified
CPT/HCPCS: 71275; 74177; 80053; 82803; 83605; 83690; 84484; 85007; 85025; 85027; 85610; 86803; 87389; 93005; 96374; 96375; 99285; J1171; J2405; J3010; Q9967

== ENCOUNTER 2024-07-13 02:24 | Observation (INO) | payer BC, SELFPAY ==
[2024-07-13 02:25] VITALS: BP 157/86; PULSE 82; RESP 18; TEMP 37; O2SAT 98; BMI 29.4
--- NOTE | 2024-07-13 02:28 | ECG_ITS ---
APPROVED REPORT Exam: Resting ECG HR:67 bpm ECG Measurements Heart Rate 67 AXES PA 117 P 5 QRSd 94 QRS 92 QT 365 T 100 QTc 381 Conclusion SINUS RHYTHM WITH SHORT PA INTERVAL but no delta wave, no WPW LATERAL MYOCARDIAL INFARCTION , OF INDETERMINATE AGE [40+ ms Q WAVE AND/OR ST/T ABNORMALITY IN I/aVL/V5/V6] No STEMI Electronically signed by : CHUCK FARRIS, 07/13/2024 08:29:31
--- NOTE | 2024-07-13 02:31 | XR_ITS ---
PROCEDURE INFORMATION: Exam: XR Chest Exam date and time: 07/13/2024 3:00 AM Age: 39 years old Clinical indication: Pain; Chest pressure; Additional info: Cp, fall TECHNIQUE: Imaging protocol: Radiologic exam of the chest. Views: 2 views. COMPARISON: CT ANGIO CHEST PE PROTOCOL 07/12/2024 1:13 AM FINDINGS: Lungs: Unremarkable. No consolidation. Pleural spaces: Unremarkable. No pleural effusion. No pneumothorax. Heart/Mediastinum: Mild shift of the mediastinum to the right. Diaphragm: Elevation of the left hemidiaphragm. Bones/joints: Unremarkable. IMPRESSION: No acute disease. Chronic elevation of the left hemidiaphragm and rightward shift of the mediastinum.
[2024-07-13 02:45] LABS: Basophils # 0.1 K/mm3 (0-0.2); Basophils % 0.4 % (0.1-2.0); Eosinophils # 0.1 K/mm3 (0.0-0.4); Eosinophils % 0.4 % (0.1-12.0); Hematocrit 45.5 % (42.0-52.0); Hemoglobin 14.1 g/dL (14.1-18.0); Lymphocytes # 2.3 K/mm3 (0.7-4.5); Lymphocytes % 14.2 % (10-50); Mean Corpuscular Hemoglobin 23.3 pg (27.0-31.2); Mean Corpuscular Volume 75.2 fl (80-94); Mean Platelet Volume 10.5 fl (7.4-10.4); Monocytes # 1.6 K/mm3 (0.1-1.0); Monocytes % 9.7 % (1.7-9.3); Neutrophils # 12.2 K/mm3 (1.8-7.8); Neutrophils % 74.4 % (37.0-80.0); Platelet Count 255 K/mm3 (142-424); Red Blood Count 6.05 M/mm3 (4.60-6.20); Red Cell Distribution Width 16.2 % (11.5-17.5); White Blood Count 16.4 K/mm3 (4.8-10.8)
[2024-07-13] MEDS: LORazepam 2MG/ML VIAL 0.5 MG IV (02:47)
[2024-07-13 02:48] LABS: MANUAL DIFFERENTIAL MANUAL DIFFERENTIAL (MANUAL DIFF)
[2024-07-13] MEDS: HYDROMORPHONE 2MG/ML SYRINGE 2 MG IV ×4 (02:58→09:06)
[2024-07-13 03:28] LABS: Lactate Venous 1.1 mmol/L (0.4-2.0); VBG Base Excess 1.3 mmol/L (-2.4-2.3); VBG HCO3 26.2 mmol/L (23-30); VBG Oxygen Saturation 92.8 % (50-70); VBG PCO2 43.8 mmol/L (35-51); VBG PO2 65.5 mmol/L (28-40); VBG Total CO2 27.6 mmol/L (23-27)
[2024-07-13 03:39] LABS: Alanine Aminotransferase 24 U/L (12-78); Albumin Level 3.5 g/dl (3.5-5.0); Albumin/Globulin Ratio 1.2 (1.1-1.8); Alkaline Phosphatase 113 U/L (38-126); Aspartate Amino Transferase 33 U/L (17-59); Bilirubin,Total 0.6 mg/dl (0.2-1.3); Blood Urea Nitrogen 7 mg/dl (9-20); Calcium 8.6 mg/dl (8.4-10.2); Carbon Dioxide 23 mmol/L (22.0-30.0); Chloride 108 mmol/L (98-107); Creatinine Clearance Estimated 205 mL/min (50-200); Estimated Glomerular Filt Rate 126 ml/min (>60); GFR (African American) 153 ML/MIN (>60); Globulin 2.9 g/dL (1.3-3.2); Glucose 133 mg/dl (74-100); Sodium 139 mmol/L (136-145); Total Protein,Serum 6.4 g/dl (6.3-8.2)
[2024-07-13 03:43] VITALS: BP 128/74; PULSE 74; RESP 18; TEMP 36.6; O2SAT 98
[2024-07-13 03:45] LABS: Anion Gap 11.3 mEq/L (5-15); Potassium 3.3 mmoL/L (3.5-5.1)
[2024-07-13 03:46] LABS: Eosinophils % 1 % (0-3); Lymphocytes % 11 % (10-50); Monocytes % 8 % (2-9); Neutrophils % 78 % (42-76); Total Cells Counted 100
[2024-07-13 03:48] LABS: Platelet Estimate Normal
[2024-07-13 03:49] LABS: Anisocytosis 1+; Microcytosis 1+; Poikilocytosis 1+; Target Cells 1+
[2024-07-13 03:50] LABS: Elliptocytes 1+
[2024-07-13] MEDS: LIDOCAINE 5% TRANSDERMAL PATCH 1 EACH TP (03:52)
[2024-07-13 03:55] LABS: Troponin I < 0.01 ng/ml (0.00-0.034)
[2024-07-13 04:00] VITALS: BP 146/100; PULSE 91; RESP 17; TEMP 36.4; O2SAT 98; BMI 29.2
[2024-07-13 04:01] LABS: Lactic Acid 1.3 mmol/L (0.7-2.1)
--- NOTE | 2024-07-13 04:03 | PC.NURSE ---
Patient arrived to floor via wheelchair from ED at 03:57.
[2024-07-13 04:28] LABS: HIV Combo NEGATIVE (Negative)
[2024-07-13] MEDS: PROMETHAZINE HCL 25MG/ML 1ML VIAL 12.5 MG IV ×2 (04:30→20:28)
[2024-07-13] MEDS: SODIUM CHLORIDE 0.9% 25ML BAG 25 ML IV ×2 (04:31→20:28)
[2024-07-13 04:35] LABS: Hepatitis C Ab Qual. W/ RFX NEGATIVE (Negative)
--- NOTE | 2024-07-13 04:50 | P.HP_ITS ---
<Statement entered by Prashanth Dick MD - 07/15/24 10:31> Personally examined patient and agree with the plan of care as outlined by the TRUST MANAGER. 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 He just thought he was out of shape but Working out in the until this was found he then had several operations to expand the right lung. Patient also noted as having irritable bowel disease Linzess. Also a recurrent abdominal hernia that has been repaired. 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 And was having some pain. Patient was going into a restaurant had his child in a car seat and has he reached forward to grab the door his feet came out from under him and he ended up stretching his right side holding onto the baby but then also not letting go of the door handle and having both his feet slide out from under him. His pain has been so immense that he was not able to tolerate i t and has come to the emergency room. On checking with him he did receive medication he said that helped for a short period of time but he was still in significant pain. Patient's history is noted also having physical therapy work up on his shoulder and his lower back. Has a very unique looking CT scan showing the heart being pushed over to the right, but still continues to work full-time in a very physical job. Checked with the emergency room physician who have tried many things to try to get his pain under control. Patient is in immense pain do agree that placing him in for pain control. Also to have pulmonology evaluate him to see if this pain is related to the right lung and diaphragm, does not appear to be really related to liver or gallbladder. So we will place him in observation and continue medication to see if we can bring him some comfort [facility] Disclaimer: The information contained in this section may have been updated after the patient was seen, as this information can be updated by other users. Medical History (Updated 07/13/24 @ 05:09 by Dylon Bowden APRN) Irritable bowel syndrome Right upper quadrant pain GERD (gastroesophageal reflux disease) Abnormal computerized axial tomography of chest Chronic cough Abnormal EKG Allergies Multiple lung nodules on CT Atypical pneumonia Dyspnea on exertion Elevated diaphragm Surgical History History of bronchoscopy History of thoracentesis History of thoracotomy History of thumb surgery History of umbilical hernia repair History of shoulder surgery Family History Other Family history of cancer Hypertension Social History Smoking Status: Current every day smoker alcohol intake: never substance use type: denies use current occupational status: employed Travel in the last 8 weeks: None household members: spouse housing: house lives independently: Yes marital status: service: Yes assisted: No caffeine: No Other Medical History Have you received the Pneumonia Vaccine: No Review of Systems Review of Systems Review of systems:: pertinent systems reviewed and negative unless documented below Constitutional Constitutional: Reports as per HPI Eyes Eyes: Reports as per HPI ENT Ears, Nose, Mouth, and Throat: Reports as per HPI *Cardiovascular Cardiovascular: Reports as per HPI *Gastrointestinal Gastrointestinal: Reports as per HPI *Genitourinary Genitourinary: Reports as per HPI *Musculoskeletal Musculoskeletal: Reports as per HPI Integumentary/Breasts Skin/Breast: Reports as per HPI *Neurologic Neurologic: Reports as per HPI Psychiatric Psychiatric: Reports as per HPI Endocrine Endocrine: Reports as per HPI Hematologic/Lymphatic Hematologic/Lymphatic: Reports as per HPI Allergic/Immunologic Allergic/Immunologic: Reports as per HPI Meds Home Medications and Allergies Home Medications ?Medication ?Instructions ?Recorded ?Confirmed ?Type linaclotide 290 mcg capsule 290 mcg PO DAILY #30 caps 04/27/24 06/05/24 Rx (Linzess) omeprazole 40 mg capsule,delayed 40 mg PO DAILY 04/28/24 06/05/24 History release lidocaine 5 % topical patch See Rx Instructions topical 07/12/24 Rx .COMPLEX #15 ea methocarbamol 500 mg tablet 500 mg PO Q6H #20 tabs 07/12/24 Rx New Prescriptions to Start Prescriptions: Allergies Allergy/AdvReac Type Severity Reaction Status Date / Time No Known Allergies Allergy Verified 06/05/24 13:22 Exam Data for Last 24 hours Vital signs and Labs for Last 24 Hours: Temp Pulse Resp BP Pulse Ox O2 Del Method 97.9 F 74 18 128/74 98 Room Air 07/13/24 03:43 07/13/24 03:43 07/13/24 03:43 07/13/24 03:43 07/13/24 02:25 07/13/24 03:43 Laboratory Results - last 24 hr 07/13/24 02:28: VBG pH 7.40, VBG pCO2 43.8, VBG pO2 65.5 H, VBG HCO3 26.2, VBG Total CO2 27.6 H, VBG O2 Saturation 92.8 H, VBG Base Excess 1.3, VBG Lactic Acid 1.1 07/13/24 02:36: WBC 16.4 H, RBC 6.05, Hgb 14.1, Hct 45.5, MCV 75.2 L, MCH 23.3 L , MCHC 31.0 L, RDW 16.2, Plt Count 255, MPV 10.5 H, Neut % (Auto) 74.4, Lymph % (Auto) 14.2, Upson % (Auto) 9.7 H, Eos % (Auto) 0.4, Baso % (Auto) 0.4, Neut # (Auto) 12.2 H, Lymph # (Auto) 2.3, Upson # (Auto) 1.6 H, Eos # (Auto) 0.1, Baso # (Auto) 0.1, Total Counted 100, Neutrophils % (Manual) 78 H, Band Neutrophils % 2.0, Lymphocytes % (Manual) 11, Monocytes % (Manual) 8, Eosinophils % (Manual) 1, Platelet Estimate Normal, Poikilocytosis 1+, Anisocytosis 1+, Microcytosis 1+, Target Cells 1+, Sodium 139, Potassium 3.3 L D, Chloride 108 H, Carbon Dioxide 23, Anion Gap 11.3, BUN 7 L D, Creatinine 0.70 D, Estimated Creat Clear 205, Estimated GFR 126, Est GFR ( Amer) 153 D, Glucose 133 H, Lactate 1.3, Calcium 8.6, Total Bilirubin 0.6, AST 33, ALT 24, Alkaline Phosphatase 113, Troponin I < 0.01, Total Protein 6.4, Albumin 3.5 D, Globulin 2.9, Albumin/Globulin Ratio 1.2, HCV Ab FRAN w/Rflx PCR Qn Negative, HIV Ag/Ab Combo Qual Negative I & O for Last 24 hours: Intake & Output 07/10/24 07/11/24 07/12/24 07/13/24 05:59 05:59 05:59 05:59 Weight 223 lb Radiology Reports for the Last 24 Hours: Abdominal CT no acute finding, chest CT chronic findings of elevated left bobby diaphragm with mediastinal shift to the right Constitutional Constitutional: severe distress, thin and cooperative *Routine HEENT Exam Head: Present normocephalic and atraumatic Eye: Present EOMI and PERRL ENT: Present mucous membranes moist *Routine Neck Exam Neck: Present supple and full ROM Routine Chest/Breast/Axilla Exam Chest wall: Present tenderness ( chest wall tenderness was found, pain he is expressing to light palpation is actually abdominal right upper quadrant midclavicular line to right axillary line and lower rib cage) *Routine Respiratory Exam Respiratory: Present CTA bilaterally, normal respiratory effort, able to speak in complete sentences and symmetric chest movement Comments: Respiratory exam is normal patient is moving air equally to both sides., *Routine Cardiovascular Exam Cardiovascular: Present RRR, Normal S1 and Normal S2 *Routine Abdominal Exam Abdominal: Present guarding and firm Comments: Patient is guarding, significant pain to even light palpation to the right upper quad midclavicular line over to mid axillary line right side *Routine Rectal Exam Rectal:: deferred *Routine Genitalia Exam Genitalia:: deferred *Routine Extremities Exam Extremities: Present full ROM and pulses intact Comments: No signs of injury or decreased range of motion motion or movement of upper or lower extremities Routine Back/Spine/Pelvis Exam Back/Spine: Present full ROM and CVA tenderness Comments: Patient was able to get from wheelchair to stretcher without any community relations assistant did not appear to be having any significant back pain. It is noted that he does see a physical therapist for chronic back pain lower *Routine Skin Exam Skin: Present intact, dry and warm Comments: No rashes, or abnormal bruising found *Routine Neurological Exam Neurological: Present alert, oriented X3, CN II-XII intact, normal reflexes, moving all extremities, normal tone, vision grossly intact and hearing grossly intact Routine Psychiatric Exam Psychiatric: Present normal affect, normal thought process, suicidal ideation, cooperative, good insight and good judgment Comments: For patient feeling bad actually talks very well good historian, H&P: Result Impressions 1. Chronic diaphragm injury., With right mediastinal shift,, has had a slip with stretching of the right side from shoulder through hip. Now in excruciating pain 2. CT scan of lungs show that lung montgomery are smaller than would be expected for a person his size Imaging and Cardiology CT scan - abdomen: Status: image reviewed by me Additional comments: No acute findings on the abdominal CT scan CT scan - chest: Status: image reviewed by me Additional comments: No acute findings. But does follow-up with history of elevated left hemodiaphragm. With right mediastinal shift, there was no signs of infiltrate in the lungs but the lungs appear small for a man his size with the physical activity that he is employed Assessment and Plan *Assessment and plan (1) Pain: Status: Acute Category: Medical Code(s): R52 - Pain, unspecified (2) Rib pain on right side: Status: Acute Category: Medical Code(s): R07.81 - Pleurodynia (3) Muscle spasm: Status: Acute Category: Medical Code(s): M62.838 - Other muscle spasm (4) Right upper quadrant pain: Status: Acute Category: Medical Code(s): R10.11 - Right upper quadrant pain (5) Irritable bowel syndrome: Status: Acute Qualifiers: Irritable bowel syndrome type: unspecified Qualified Code(s): K58.9 - Irritable bowel syndrome, unspecified Category: Medical Code(s): K58.9 - Irritable bowel syndrome, unspecified Plan 1. Will admit patient for pain control since he is not able to reach a level of comfort to release him home.. Also will consult pulmonology to evaluate to make sure that there is no diaphragm or lung involvement in this injury., Question whether this is a severe stretching problem related to scar tissue from previous surgeries related to his slip on the ice. So we will try different pain medications including Toradol and prednisone and lidocaine and narcotic opioid if needed. Also will use a different muscle relaxant to see if this will help. Will have physical therapy evaluate him question whether dry needling may be something that will help him with this in the future.
[2024-07-13] MEDS: KETOROLAC 30MG/ML VIAL 30 MG IV (05:11)
[2024-07-13] MEDS: METHYLPREDNISOLONE SOD SUCC 40MG VIAL 40 MG IV ×2 (06:04→18:14)
[2024-07-13] MEDS: CYCLOBENZAPRINE 10MG TABLET 10 MG PO (06:05)
--- NOTE | 2024-07-13 07:18 | ED_ITS ---
Discharge Plan Disposition Patient Disposition: Admitted Condition: Good Clinical Impressions Clinical Impression: Pain, Abdominal pain, RUQ (right upper quadrant), Right-sided chest pain Discharge ED Provider: Yared Rai Adult HPI General Chief complaint: Abdominal Pain Stated complaint: AO 1000 abd pain Time Seen by Provider: 07/13/24 02:34 Mode of Arrival: Ambulatory Source of Information: Patient Limitations: No Limitations Description of Symptoms (Recalled from ER Triage Doc. by RN): Patient reports to ED with upper right quadrant abdominal pain. Patient reports he was here last night and the pain remains the same. Patient reports he did have a fall this morning and pain got worst. Patient states he took a pain pill 3 hours ago with no relief. History of Present Illness HPI narrative: 39-year-old male presents to the ER with right lower chest/right upper quadrant abdominal pain. Patient reports he was here last night and this is the same pain he was having at that time. Patient states he did have a mild fall this morning and that seemed to further exacerbate his pain. He states he was carrying his son in his car seat in the left arm and reached for the door with his right hand when his feet slipped, as he fell, his right side pulled. He states he did not sustain any other injuries in the fall, did not hit his head or lose consciousness. Patient reports he took the muscle relaxer prescribed to him last night prior to arrival, he is also wearing a lidocaine patch. He has not had relief with this. He is asking to be admitted for pain control and to see pulmonology. No nausea, vomiting, or diarrhea, no headache, dizziness, numbness, tingling, or weakness. He states the pain is exactly the same type of pain as when he came in last night. Related Data Home Medications ?Medication ?Instructions ?Recorded ?Confirmed omeprazole 40 mg capsule,delayed 40 mg PO DAILY 04/28/24 07/13/24 release Previous Rx's ?Medication ?Instructions ?Recorded methocarbamol 500 mg tablet 500 mg PO Q6H #20 tabs 07/12/24 Allergies Allergy/AdvReac Type Severity Reaction Status Date / Time No Known Allergies Allergy Verified 06/05/24 13:22 [facility] Disclaimer: The information contained in this section may have been updated after the patient was seen, as this information can be updated by other users. Medical History (Updated 07/13/24 @ 07:31 by Yared Rai MD) Irritable bowel syndrome Right upper quadrant pain GERD (gastroesophageal reflux disease) Abnormal computerized axial tomography of chest Chronic cough Abnormal EKG Allergies Multiple lung nodules on CT Atypical pneumonia Dyspnea on exertion Elevated diaphragm Surgical History History of bronchoscopy History of thoracentesis History of thoracotomy History of thumb surgery History of umbilical hernia repair History of shoulder surgery Family History Other Family history of cancer Hypertension Social History Smoking Status: Current every day smoker alcohol intake: never substance use type: denies use current occupational status: employed Travel in the last 8 weeks: None household members: spouse housing: house lives independently: Yes marital status: service: Yes detention: No caffeine: No Have you lived/traveled outside [place] in past 30 days?: No Contact w/someone who lives/traveled outside US past 30 days?: No Exposure to someone with infectious disease in past 14 days?: No Do you have a fever (greater than 100.4 F or 38 C)?: No Have you tested positive for COVID-19: No Exposed to someone with COVID-19 in past 14 days?: No Do you have a sore throat?: No Do you have a cough?: No Do you have any weakness?: No Do you have any diarrhea?: No Are you experiencing any unusual bleeding?: No Do you have any muscle aches/pain?: No Do you have any abdominal pain?: No Are you experiencing loss of taste or smell?: No Other Medical History Have you received the Flu Vaccine for this season: No Have you received the Pneumonia Vaccine: No ROS Obtained: Yes Systems reviewed as appropriate & no additional complaints except as documented Per HPI Physical Exam General General appearance: alert Comment: In obvious pain, tremulous, slightly diaphoretic Head Head exam: atraumatic and normocephalic Eye Eye exam: Present PERRL and EOMI ENT ENT exam: Present mucous membranes moist Neck Neck exam: Present normal inspection and full ROM Chest Chest inspection: Present symmetric chest wall rise and tenderness (Tenderness of the right lower lateral ribs without overlying or associated traumatic finding) Respiratory Respiratory exam: Present normal lung sounds bilaterally and other (Good air movement throughout); Absent respiratory distress, wheezes or stridor Cardiovascular Cardiovascular exam: Present regular rate and normal rhythm Abdominal Exam Abdominal exam: Present soft, tenderness (Significant tenderness in the right upper quadrant with voluntary guarding but no rebound) and guarding (Voluntary); Absent distention, rebound or rigidity Extremities Exam Extremities exam: Present full ROM Neurological Exam Neurological exam: Present alert and oriented X3; Absent motor sensory deficit Psychiatric Psychiatric exam: Present normal affect and normal mood Skin Skin exam: Present warm and dry Medical Decision Making Medical Records Medical records reviewed: Yes I reviewed the patient's medical records. Screening: Per USPSTF and CDC recommendations, given the prevalence of disease in our region, it is our hospital?s policy to screen for HIV and viral Hepatitis for all patients aged 18 and over and those with ongoing risk factors. MR Comment: CT imaging of the patient from yesterday when he presented with identical complaints was reviewed, no acute abnormalities Girma Inquiry Pt receiving controlled substance: No Vital Signs: 07/13/24 02:25 07/13/24 03:36 07/13/24 03:43 Temperature 98.6 F 97.9 F Temperature Source Oral Oral Pulse Rate 74 Pulse Rate [Right Brachial] 82 Respiratory Rate 18 18 Blood Pressure 128/74 Blood Pressure [Right Arm] 157/86 H Blood Pressure Mean [Right Arm] 109 Blood Pressure Source Automatic Cuff Blood Pressure Source [Right Arm] Automatic Cuff Blood Pressure Position Supine Blood Pressure Position [Right Arm] Supine 02 Sat by Pulse Oximetry 98 Oxygen Delivery Method Room Air Room Air Room Air Lab Data Lab Results 07/13/24 02:28: VBG pH 7.40, VBG pCO2 43.8, VBG pO2 65.5 H, VBG HCO3 26.2, VBG Total CO2 27.6 H, VBG O2 Saturation 92.8 H, VBG Base Excess 1.3, VBG Lactic Acid 1.1 07/13/24 02:36: WBC 16.4 H, RBC 6.05, Hgb 14.1, Hct 45.5, MCV 75.2 L, MCH 23.3 L , MCHC 31.0 L, RDW 16.2, Plt Count 255, MPV 10.5 H, Neut % (Auto) 74.4, Lymph % (Auto) 14.2, [place] % (Auto) 9.7 H, Eos % (Auto) 0.4, Baso % (Auto) 0.4, Neut # (Auto) 12.2 H, Lymph # (Auto) 2.3, [place] # (Auto) 1.6 H, Eos # (Auto) 0.1, Baso # (Auto) 0.1, Total Counted 100, Neutrophils % (Manual) 78 H, Band Neutrophils % 2.0, Lymphocytes % (Manual) 11, Monocytes % (Manual) 8, Eosinophils % (Manual) 1, Platelet Estimate Normal, Poikilocytosis 1+, Anisocytosis 1+, Microcytosis 1+, Target Cells 1+, Sodium 139, Potassium 3.3 L D, Chloride 108 H, Carbon Dioxide 23, Anion Gap 11.3, BUN 7 L D, Creatinine 0.70 D, Estimated Creat Clear 205, Estimated GFR 126, Est GFR ( Amer) 153 D, Glucose 133 H, Lactate 1.3, Calcium 8.6, Total Bilirubin 0.6, AST 33, ALT 24, Alkaline Phosphatase 113, Troponin I < 0.01, Total Protein 6.4, Albumin 3.5 D, Globulin 2.9, Albumin/Globulin Ratio 1.2, HCV Ab FRAN w/Rflx PCR Qn Negative, HIV Ag/Ab Combo Qual Negative 07/13/24 02:36 07/13/24 02:36 Orders (Tests/Meds): ED MEDICATIONS Generic Name Dose Route Start Last Admin Trade Name Freq PRN Reason Stop Dose Admin Acetaminophen 650 mg 07/13/24 03:37 Acetaminophen 325mg Tab PO 08/12/24 03:36 Q4HP PRN Fever or Mild Pain (1-3) Cyclobenzaprine HCl 10 mg 07/13/24 04:42 07/13/24 06:05 Cyclobenzaprine 10mg Tablet PO 07/13/24 04:43 10 mg ONCE ONE Administration Enoxaparin Sodium 40 mg 07/13/24 09:00 Enoxaparin 40mg/0.4ml Syringe SUBCUT 08/12/24 08:59 DAILY JAZMYNE Hydromorphone HCl 2 mg 07/13/24 03:37 07/13/24 06:40 Hydromorphone 2mg/Ml Syringe IV 08/12/24 03:36 2 mg Q2HP PRN Administration Severe Pain (7-10) Ibuprofen 400 mg 07/13/24 03:37 Ibuprofen 400 Mg Tablet PO 08/12/24 03:36 Q6HP PRN Mild Pain (1-3) Ketorolac Tromethamine 30 mg 07/13/24 03:37 07/13/24 05:11 Ketorolac 30mg/Ml Vial IV 07/18/24 03:36 30 mg Q6HP PRN Administration Moderate Pain (4-6) Lidocaine 1 each 07/13/24 03:45 07/13/24 03:52 Lidocaine 5% Transdermal Patch TP 08/12/24 03:44 1 each Q24H JAZMYNE Administration Methylprednisolone Sodium Succinate 40 mg 07/13/24 04:45 07/13/24 06:04 Methylprednisolone Sod Succ 40mg Vial IV 08/12/24 04:44 40 mg Q12H JAZMYNE Administration Pantoprazole Sodium 40 mg 07/13/24 21:00 Pantoprazole 40mg Tablet PO 08/12/24 20:59 HS JAZMYNE Promethazine HCl 12.5 mg 07/13/24 03:37 07/13/24 04:30 Promethazine Hcl 25mg/Ml 1ml Vial IV 08/12/24 03:36 12.5 mg Q6HP PRN Administration Nausea And Vomiting Sodium Chloride 10 ml 07/13/24 02:35 Sodium Chloride 0.9% 10ml Vial IV 08/12/24 02:34 NEEDED PRN to Dilute Lorazepam inj Sodium Chloride 25 ml 07/13/24 03:37 07/13/24 04:31 Sodium Chloride 0.9% 25ml Bag IV 08/12/24 03:36 25 ml NEEDED PRN Administration for Use with IV Promethazine Discontinued Medications Generic Name Dose Route Start Last Admin Trade Name Freq PRN Reason Stop Dose Admin Hydromorphone HCl 2 mg 07/13/24 02:35 07/13/24 02:58 Hydromorphone 2mg/Ml Syringe IV 07/13/24 02:36 2 mg ONCE ONE Administration Lorazepam 0.5 mg 07/13/24 02:35 07/13/24 02:47 Lorazepam 2mg/Ml Vial IV 07/13/24 02:36 0.5 mg ONCE ONE Administration ORDERS Category Date Time Status CXR 2 view (NOT portable) [XR chest 2V] Stat Exams 07/13/24 02:31 Completed POCUS Point of Care (ER Only) Stat Exams 07/13/24 02:31 Completed CBC w/Auto Diff [Complete Blood Count Auto Diff] Stat Lab 07/13/24 02:36 Completed CMP [Comprehensive Metabolic Panel] Stat Lab 07/13/24 02:36 Completed HIV Combo Stat Lab 07/13/24 02:36 Completed Hepatitis C Ab Qual. W/ RFX Stat Lab 07/13/24 02:36 Completed Lactic Acid Stat Lab 07/13/24 02:36 Completed Trop I [Troponin I] Stat Lab 07/13/24 02:36 Completed Troponin I Q3H Lab 07/13/24 05:30 Ordered Troponin I Q3H Lab 07/13/24 08:30 Ordered VBG [Venous Blood Gas] Stat RT 07/13/24 02:28 Completed ECG Request Stat Y 07/13/24 02:28 Ordered Medical Decision Narrative: In summary, this 39-year-old male with comorbidities including previous thoracotomy, previous collapsed lung, GERD, elevated hemidiaphragm who was evaluated by me in the ER yesterday for identical pain presents to the emergency department today with right upper quadrant/right lower chest pain. On initial evaluation patient is obviously in pain, tender in the right upper quadrant with voluntary guarding, no rebound, no traumatic findings of the abdomen or chest, lungs clear bilaterally, hemodynamically stable, airway intact, bilateral breath sounds present, mildly hypertensive likely due to pain, no respiratory distress. Differential diagnosis includes but is not limited to pneumothorax, rib fracture, I considered cholelithiasis or cholecystitis however these were well evaluated yesterday and had no evidence of that, also considered intra-abdominal injury, intra-abdominal bleeding, have very low suspicion for this since patient is hemodynamically stable with no tachycardia and no hypotension and his fall was more than 12 hours ago. If he had intra-abdominal bleeding I would expect it to be manifesting on vitals at this time which does not.. Since patient had thorough workup of this identical pain yesterday, I am starting with chest x- ray, EKG, cardiac labs to rule out ACS, and E-FAST to evaluate intra-abdominal and intrathoracic cavities due to his low-energy trauma 12 hours ago. EKG personally turbid to demonstrate sinus rhythm with short MO, no delta wave, no WPW, normal axis, normal MO and QTc, no STEMI. E-FAST personally performed and interpreted at bedside is normal. Reassuring against acute intra-abdominal or intrathoracic trauma being the cause of patient's pain. Patient received IV Dilaudid, he also received low-dose IV Ativan which is being used as a muscle relaxer at this time. Chest x-ray personally interpreted does not demonstrate acute intrathoracic abnormality, heavy diaphragm elevation persistent. Otherwise unchanged intrathoracic contents. See radiology read for final interpretation Labs demonstrate mild leukocytosis with no significant delta from previous, platelets normal, VBG with normal pH, normal lactic, normal pCO2, CMP does demonstrate hypokalemia which is new compared to prior however patient also appears better hydrated with improved BUN and creatinine. Troponin undetectably low less than 0.01, no transaminitis reassuring against biliary pathology. Patient is still having pain and I believe he is appropriate for admission for continued pain management and inpatient evaluation potentially by pulmonology. Patient is agreeable to this plan. I do not believe he requires further imaging or workup in the ER at this time with reassuring findings on imaging and stable findings on labs compared to yesterday. I discussed this case with the hospitalist, patient was accepted for admission. He was admitted in stable condition. Procedures Miscellaneous Procedure Procedure Performed: E-FAST ultrasound Indication: Blunt trauma, fall Views: [LUQ/RUQ/pelvis/limited cardiac/limited thoracic] Interpretation: Peritoneal free fluid: Absent Pericardial effusion: Absent Right thoracic free fluid: Absent within the visualized montgomery Left thoracic free fluid: Absent within visualized montgomery Right lung pneumothorax: Absent Left lung pneumothorax: Absent Impression: Negative EFAST ultrasound Images were saved in the permanent archive. The study was technically adequate. CPT 37546-81 (limited cardiac) 59464?26 (limited abdominal) 05352?26 (chest) This study was performed by me, and I personally interpreted all images/videos. Based on my clinical judgment, these images were adequate and did not necessitate further imaging. Critical Care Critical Care Time Critical Care Time: No
[2024-07-13 07:40] VITALS: BP 139/90; PULSE 100; RESP 18; TEMP 36.8; O2SAT 95
[2024-07-13 08:13] LABS: Troponin I < 0.01 ng/ml (0.00-0.034)
[2024-07-13] MEDS: ENOXAPARIN 40MG/0.4ML SYRINGE 40 MG SUBCUT (09:04)
[2024-07-13] MEDS: POTASSIUM CHLORIDE 20MEQ TAB 40 MEQ PO ×2 (09:05→13:53)
[2024-07-13 09:16] LABS: Troponin I < 0.01 ng/ml (0.00-0.034)
--- NOTE | 2024-07-13 10:19 | EXP.PULM.CON ---
History of Present Illness History of present illness: Mr. Rangel is a 39-year-old male presented to the ER complaining of right lower quadrant/lower rib cage chest pain and pulmonary was called for further evaluation of possible pulmonary etiology of the noted chest pain. Patient admits chest pain started suddenly 24 to 48 hours after strenuous activity. Sharp nonradiating pain worsens with movement and deep breathing and moving even while holding his breath. focal tenderness also noted. [facility] Disclaimer: The information contained in this section may have been updated after the patient was seen, as this information can be updated by other users. Medical History (Updated 07/13/24 @ 07:31 by Yared Rai MD) Irritable bowel syndrome Right upper quadrant pain GERD (gastroesophageal reflux disease) Abnormal computerized axial tomography of chest Chronic cough Abnormal EKG Allergies Multiple lung nodules on CT Atypical pneumonia Dyspnea on exertion Elevated diaphragm Surgical History History of bronchoscopy History of thoracentesis History of thoracotomy History of thumb surgery History of umbilical hernia repair History of shoulder surgery Family History Other Family history of cancer Hypertension Social History Smoking Status: Current every day smoker alcohol intake: never substance use type: denies use current occupational status: employed Travel in the last 8 weeks: None household members: spouse housing: house lives independently: Yes marital status: service: Yes fpc: No caffeine: No Review of Systems Constitutional Constitutional: Denies anorexia, Denies body ache(s) and Denies fatigue Eyes Eyes: Denies eye discharge, Denies dry eyes, Denies irritation and Denies itchy eyes ENT Ears, Nose, Mouth, and Throat: Denies epistaxis, Denies facial pain, Denies lip swelling and Denies throat swelling *Cardiovascular Cardiovascular: Reports chest pain, Reports chest pain at rest, Reports chest pain with activity, Denies dyspnea and Denies dyspnea on exertion *Respiratory Respiratory: Denies change in phlegm color, Denies chest congestion, Denies cough, Denies dyspnea, Denies dyspnea on exertion, Denies excessive phlegm production, Denies hemoptysis, Denies pain on inspiration, Denies pain with cough and Denies wheezing *Gastrointestinal Gastrointestinal: Reports abdominal pain, Denies belching, Denies cramping, Reports heartburn and Reports vomiting *Musculoskeletal Musculoskeletal: Denies back pain and Denies myalgias *Neurologic Neurologic: Reports as per HPI Psychiatric Psychiatric: Denies homicidal ideation and Denies suicidal ideation Endocrine Endocrine: Denies fatigue and Denies heat intolerance Hematologic/Lymphatic Hematologic/Lymphatic: Denies easy bleeding and Denies lymphadenopathy Allergic/Immunologic Allergic/Immunologic: Denies itchy eyes, Denies lip swelling, Denies throat swelling and Denies wheezing Pulmonology Exam Inpatient Vital signs and Labs for Last 24 Hours: Temp Pulse Resp BP Pulse Ox O2 Del Method 98.3 F 100 H 18 139/90 95 Room Air 07/13/24 07:40 07/13/24 07:40 07/13/24 07:40 07/13/24 07:40 07/13/24 07:40 07/13/24 08:00 Laboratory Results - last 24 hr 07/13/24 02:28: VBG pH 7.40, VBG pCO2 43.8, VBG pO2 65.5 H, VBG HCO3 26.2, VBG Total CO2 27.6 H, VBG O2 Saturation 92.8 H, VBG Base Excess 1.3, VBG Lactic Acid 1.1 07/13/24 02:36: WBC 16.4 H, RBC 6.05, Hgb 14.1, Hct 45.5, MCV 75.2 L, MCH 23.3 L, MCHC 31.0 L, RDW 16.2, Plt Count 255, MPV 10.5 H, Neut % (Auto) 74.4, Lymph % (Auto) 14.2, [place] % (Auto) 9.7 H, Eos % (Auto) 0.4, Baso % (Auto) 0.4, Neut # (Auto) 12.2 H, Lymph # (Auto) 2.3, [place] # (Auto) 1.6 H, Eos # (Auto) 0.1, Baso # (Auto) 0.1, Total Counted 100, Neutrophils % (Manual) 78 H, Band Neutrophils % 2.0, Lymphocytes % (Manual) 11, Monocytes % (Manual) 8, Eosinophils % (Manual) 1, Platelet Estimate Normal, Poikilocytosis 1+, Anisocytosis 1+, Microcytosis 1+, Target Cells 1+, Sodium 139, Potassium 3.3 L D, Chloride 108 H, Carbon Dioxide 23, Anion Gap 11.3, BUN 7 L D, Creatinine 0.70 D, Estimated Creat Clear 205, Estimated GFR 126, Est GFR ( Amer) 153 D, Glucose 133 H, Lactate 1.3, Calcium 8.6, Total Bilirubin 0.6, AST 33, ALT 24, Alkaline Phosphatase 113, Troponin I < 0.01, Total Protein 6.4, Albumin 3.5 D, Globulin 2.9, Albumin/Globulin Ratio 1.2, HCV Ab FRAN w/Rflx PCR Qn Negative, HIV Ag/Ab Combo Qual Negative 07/13/24 07:12: Troponin I < 0.01 07/13/24 08:40: Troponin I < 0.01 I & O for Labs for Last 24 Hours: Intake & Output 07/10/24 07/11/24 07/12/24 07/13/24 23:59 23:59 23:59 23:59 Intake Total 300 / 300 Output Total 0 / 0 Balance 300 / 300 Weight 221 lb Constitutional: Present mild distress Head: Present normocephalic and atraumatic ENT: Present normal exam, normal oropharynx and mucous membranes moist Neck: Present normal inspection and full ROM Respiratory: Present diminished air movement and able to speak in complete sentences; Absent respiratory distress, rhonchi, stridor, wheezes or crackles Cardiac: Present S1/S2, Tachycardia and radial pulses present GI: Present soft, distention and tenderness; Absent guarding Skin: Present intact; Absent cyanosis or jaundice Neuro: Present alert, awake and oriented x 3 Extremities: Present normal inspection; Absent clubbing or cyanosis Psychiatric: Present normal affect and cooperative Meds Home Medications and Allergies Home Medications ?Medication ?Instructions ?Recorded ?Confirmed ?Type omeprazole 40 mg capsule,delayed 40 mg PO DAILY 04/28/24 07/13/24 History release methocarbamol 500 mg tablet 500 mg PO Q6H #20 tabs 07/12/24 07/13/24 Rx New Prescriptions to Start Prescriptions: Allergies Allergy/AdvReac Type Severity Reaction Status Date / Time No Known Allergies Allergy Verified 06/05/24 13:22 Results Laboratory Findings 07/13/24 02:36 07/13/24 02:36 Abnormal lab findings: Abnormal Labs 07/13/24 07/13/24 02:28 02:36 WBC 16.4 H MCV 75.2 L MCH 23.3 L MCHC 31.0 L MPV 10.5 H [place] % (Auto) 9.7 H Neut # (Auto) 12.2 H [place] # (Auto) 1.6 H Neutrophils % (Manual) 78 H VBG pO2 65.5 H VBG Total CO2 27.6 H VBG O2 Saturation 92.8 H Potassium 3.3 L D Chloride 108 H BUN 7 L D Glucose 133 H Assessment and Plan *Assessment and plan (1) Right-sided chest pain: Status: Acute Category: Medical Code(s): R07.9 - Chest pain, unspecified Plan Mr. Rangel is a 39-year-old male presented to the ER complaining of right lower quadrant/lower rib cage chest pain and pulmonary was called for further evaluation of possible pulmonary etiology of the noted chest pain. Patient admits chest pain started suddenly 24 to 48 hours after strenuous activity. Sharp nonradiating pain worsens with movement and deep breathing and moving even while holding his breath. focal tenderness also noted. Denies any recent trauma CT chest upon admission with consolidative/airspace changes. No pulmonary embolism. Chronic left lower lobe changes including scarring and pleural calcifications. Right upper lobe calcified nodule noted remains stable. No obvious pulmonary pleural chest parenchymal abnormalities noted in right lower lung montgomery to explain the pain at this point of time. Plan: Albuterol as needed for the previously concerning reactive airway disease No further management recommendations from pulmonary standpoint at this point of time # Will schedule in-home polysomnography testing as an out-patient basis. #Patient would also benefit from outpatient GI consult evaluate for his uncontrolled acid reflux disease
[2024-07-13] MEDS: ONDANSETRON 4MG/2ML VIAL 4 MG IV ×2 (10:34→16:34)
[2024-07-13] MEDS: HYDROMORPHONE 2MG/ML SYRINGE 0.5 MG IV ×3 (12:16→19:57)
[2024-07-13 16:00] VITALS: BP 119/73; PULSE 78; RESP 16; TEMP 37.1; O2SAT 98
--- NOTE | 2024-07-13 19:16 | PC.NURSE ---
patient is a/ox4, remains on room air. has c/o pain throughout shift, treated per AUG. patient has had several episodes of nausea and vomiting this shift, treated per AUG. NPO diet at midnight. ambulates independently. call light within reach
[2024-07-13 20:00] VITALS: BP 119/78; PULSE 62; RESP 16; TEMP 36.6; O2SAT 98
[2024-07-13] MEDS: PANTOPRAZOLE 40MG TABLET 40 MG PO (20:41)
--- NOTE | 2024-07-13 22:25 | EXP.PN ---
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 However, presentation seems may be consistent with cholelithiasis/cholecystitis. Patient had already eaten, will get RUQ ultrasound first in the morning. Exam Data for Last 24 hours Vital signs and Labs for Last 24 Hours: Temp Pulse Resp BP Pulse Ox O2 Del Method 97.8 F 62 16 119/78 98 Room Air 07/13/24 20:00 07/13/24 20:00 07/13/24 20:00 07/13/24 20:00 07/13/24 20:00 07/13/24 20:00 Laboratory Results - last 24 hr 07/13/24 02:28: VBG pH 7.40, VBG pCO2 43.8, VBG pO2 65.5 H, VBG HCO3 26.2, VBG Total CO2 27.6 H, VBG O2 Saturation 92.8 H, VBG Base Excess 1.3, VBG Lactic Acid 1.1 07/13/24 02:36: WBC 16.4 H, RBC 6.05, Hgb 14.1, Hct 45.5, MCV 75.2 L, MCH 23.3 L, MCHC 31.0 L, RDW 16.2, Plt Count 255, MPV 10.5 H, Neut % (Auto) 74.4, Lymph % (Auto) 14.2, Traverse % (Auto) 9.7 H, Eos % (Auto) 0.4, Baso % (Auto) 0.4, Neut # (Auto) 12.2 H, Lymph # (Auto) 2.3, Traverse # (Auto) 1.6 H, Eos # (Auto) 0.1, Baso # (Auto) 0.1, Total Counted 100, Neutrophils % (Manual) 78 H, Band Neutrophils % 2.0, Lymphocytes % (Manual) 11, Monocytes % (Manual) 8, Eosinophils % (Manual) 1, Platelet Estimate Normal, Poikilocytosis 1+, Anisocytosis 1+, Microcytosis 1+, Target Cells 1+, Sodium 139, Potassium 3.3 L D, Chloride 108 H, Carbon Dioxide 23, Anion Gap 11.3, BUN 7 L D, Creatinine 0.70 D, Estimated Creat Clear 205, Estimated GFR 126, Est GFR ( Amer) 153 D, Glucose 133 H, Lactate 1.3, Calcium 8.6, Total Bilirubin 0.6, AST 33, ALT 24, Alkaline Phosphatase 113, Troponin I < 0.01, Total Protein 6.4, Albumin 3.5 D, Globulin 2.9, Albumin/Globulin Ratio 1.2, HCV Ab FRAN w/Rflx PCR Qn Negative, HIV Ag/Ab Combo Qual Negative 07/13/24 07:12: Troponin I < 0.01 07/13/24 08:40: Troponin I < 0.01 I & O for Last 24 hours: Intake & Output 07/10/24 07/11/24 07/12/24 07/13/24 23:59 23:59 23:59 23:59 Intake Total 860 / 860 Output Total 0 / 0 Balance 860 / 860 Weight 100.244 kg Constitutional Constitutional: no acute distress *Routine HEENT Exam Head: Present normocephalic Eye: Present EOMI and PERRL ENT: Present mucous membranes moist *Routine Neck Exam Neck: Present supple; Absent lymphadenopathy *Routine Respiratory Exam Respiratory: Present CTA bilaterally *Routine Cardiovascular Exam Cardiovascular: Present RRR *Routine Abdominal Exam Abdominal: Present soft, normoactive bowel sounds and tenderness Comments: Tenderness to palpation right upper quadrant. No peritoneal signs. *Routine Extremities Exam Extremities: Absent cyanosis, clubbing or edema *Routine Skin Exam Skin: Present warm; Absent rash *Routine Neurological Exam Neurological: Present alert and oriented X3 Assessment and Plan *Assessment and plan (1) Abdominal pain, RUQ (right upper quadrant): Status: Acute Category: Medical Code(s): R10.11 - Right upper quadrant pain Plan Ankit Rangel is a 39-year-old male who presented with right upper quadrant abdominal pain and is being evaluated for cholecystitis versus muscle strain. #Right upper quadrant abdominal pain #Suspected cholelithiasis/cholecystitis ? 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 ? However, RUQ pain is worse after eating and a positive Ibrahim's sign. Highly suspicious for cholelithiasis/cholecystitis. ? CT abdomen/pelvis however did not show cholecystitis, CBD dilatation. Will need RUQ ultrasound. ? Follow-up RUQ ultrasound in the morning. Patient had already eaten by the time this could be obtained today. ? N.p.o. at midnight. ? Tylenol, Percocet, morphine for pain control. #GERD ? Resumed home PPI. Full code DVT prophylaxis: Lovenox 40 mg
[2024-07-13] MEDS: OXYCODONE 5MG W/APAP 325MG TABLET 2 EACH PO (23:09)
[2024-07-14] VITALS (21 sets, daily range): BP systolic 110–168; BP diastolic 67–98; PULSE 66–101; RESP 16–22; TEMP 36.3–43; O2SAT 91–99; BMI 30.3
[2024-07-14] MEDS: LIDOCAINE 5% TRANSDERMAL PATCH 1 EACH TP (02:51)
[2024-07-14] MEDS: OXYCODONE 5MG W/APAP 325MG TABLET 2 EACH PO ×4 (02:55→20:15)
[2024-07-14] MEDS: METHYLPREDNISOLONE SOD SUCC 40MG VIAL 40 MG IV (04:30)
[2024-07-14] MEDS: MORPHINE 2MG/ML SYRINGE 2 MG IV ×2 (04:31→10:29)
[2024-07-14] MEDS: ONDANSETRON 4MG/2ML VIAL 4 MG IV ×3 (04:38→16:34)
[2024-07-14 06:33] LABS: Basophils % 0.1 % (0.1-2.0); Hematocrit 41.9 % (42.0-52.0); Hemoglobin 13.2 g/dL (14.1-18.0); Lymphocytes # 1.5 K/mm3 (0.7-4.5); Mean Corpuscular HGB Conc 31.5 g/dL (31.8-35.4); Mean Corpuscular Hemoglobin 23.3 pg (27.0-31.2); Mean Platelet Volume 10.7 fl (7.4-10.4); Monocytes # 0.6 K/mm3 (0.1-1.0); Neutrophils # 18.4 K/mm3 (1.8-7.8); Neutrophils % 89.1 % (37.0-80.0); Platelet Count 237 K/mm3 (142-424); Red Blood Count 5.66 M/mm3 (4.60-6.20); White Blood Count 20.7 K/mm3 (4.8-10.8)
[2024-07-14 06:41] LABS: MANUAL DIFFERENTIAL MANUAL DIFFERENTIAL (MANUAL DIFF)
[2024-07-14 06:46] LABS: Alanine Aminotransferase 141 U/L (12-78); Albumin Level 3.9 g/dl (3.5-5.0); Albumin/Globulin Ratio 1.3 (1.1-1.8); Alkaline Phosphatase 77 U/L (38-126); Anion Gap 10.7 mEq/L (5-15); Aspartate Amino Transferase 59 U/L (17-59); Bilirubin,Total 0.9 mg/dl (0.2-1.3); Blood Urea Nitrogen 12 mg/dl (9-20); Calcium 8.9 mg/dl (8.4-10.2); Carbon Dioxide 28 mmol/L (22.0-30.0); Chloride 101 mmol/L (98-107); Creatinine Clearance Estimated 210 mL/min (50-200); Estimated Glomerular Filt Rate 126 ml/min (>60); GFR (African American) 153 ML/MIN (>60); Globulin 2.9 g/dL (1.3-3.2); Glucose 121 mg/dl (74-100); Magnesium 2.1 mg/dl (1.6-2.3); Potassium 4.7 mmoL/L (3.5-5.1); Sodium 135 mmol/L (136-145); Total Protein,Serum 6.8 g/dl (6.3-8.2)
--- NOTE | 2024-07-14 08:00 | US_ITS ---
FINAL REPORT CLINICAL HISTORY: Ruq pain, worse with eating FINDINGS: Sonographic images of the right upper quadrant were obtained. The pancreas is partially obscured.The liver has an unremarkable appearance. Sludge and stones are present in the gallbladder. The gallbladder is incompletely distended, with mild gallbladder wall thickening measuring 4 mm. There is no evidence of biliary ductal dilatation.The common duct measures 4mm. Limited images of the right kidney are unremarkable. IMPRESSION: Sludge and stones are present in the gallbladder, with mild gallbladder wall thickening and incomplete distention of the gallbladder. No biliary ductal dilatation is identified. Reviewed, Interpreted and Dictated by Tr Narayan MD Transcribed by Fern Sky Authenticated and [facility]
[2024-07-14 09:01] LABS: Anisocytosis 1+; Hypochromasia 2+; Lymphocytes % 11 % (10-50); Microcytosis 1+; Monocytes % 1 % (2-9); Neutrophils % 88 % (42-76); Platelet Estimate Normal; Total Cells Counted 100
[2024-07-14] MEDS: ENOXAPARIN 40MG/0.4ML SYRINGE 40 MG SUBCUT (10:26)
--- NOTE | 2024-07-14 10:50 | EXP.SURG.CON ---
History of Present Illness *Admission Date: 07/13/24 *Reason for visit:: Cholecystitis *History of present illness: [facility] 39[facility] He has a history of lung surgery and phrenic nerve dysfunction. He had presented to the emergency department on 07/12/2024 with some right upper quadrant pain. He underwent extremely thorough workup. He was managed as an outpatient. He presented back to the emergency department on 07/13/2024 with ongoing pain. Initially this was felt to be possibly muscle strain. He was admitted for inpatient management and pain control and pulmonary consultation. After admission his presentation seemed to be more consistent potentially with gallbladder etiology. Plan was made for gallbladder ultrasound in the morning of 07/14/2024. He had some elevation of his ALT after admission to 141 and initially was 24. White blood cell count increased to 20,000 although he had been given steroids for possible pulmonary etiology. Gallbladder ultrasound revealed sludge and stones in the gallbladder with mild gallbladder wall thickening with no biliary ductal dilatation. Surgical consultation was obtained. Of note, the patient did undergo previous umbilical hernia repair in [place] and had a laparoscopy for possible recurrence with Dr. Blood. He did have previous evaluation in the emergency department in March for similar symptoms. However, since this hospitalization his right upper quadrant pain has been quite severe. He describes it as stabbing and radiating through to his back. [facility] Disclaimer: The information contained in this section may have been updated after the patient was seen, as this information can be updated by other users. Medical History (Updated 07/13/24 @ 07:31 by Yared Rai MD) Irritable bowel syndrome Right upper quadrant pain GERD (gastroesophageal reflux disease) Abnormal computerized axial tomography of chest Chronic cough Abnormal EKG Allergies Multiple lung nodules on CT Atypical pneumonia Dyspnea on exertion Elevated diaphragm Surgical History History of bronchoscopy History of thoracentesis History of thoracotomy History of thumb surgery History of umbilical hernia repair History of shoulder surgery Family History Other Family history of cancer Hypertension Social History Smoking Status: Current every day smoker alcohol intake: never substance use type: denies use current occupational status: employed Travel in the last 8 weeks: None household members: spouse housing: house lives independently: Yes marital status: service: Yes retirement: No caffeine: No Review of Systems *Neurologic Neurologic: Reports as per [facility] Meds Home Medications and Allergies Home Medications ?Medication ?Instructions ?Recorded ?Confirmed ?Type omeprazole 40 mg capsule,delayed 40 mg PO DAILY 04/28/24 07/13/24 History release methocarbamol 500 mg tablet 500 mg PO Q6H #20 tabs 07/12/24 07/13/24 Rx New Prescriptions to Start Prescriptions: Allergies Allergy/AdvReac Type Severity Reaction Status Date / Time No Known Allergies Allergy Verified 06/05/24 13:22 Exam (Inpt) Vital signs and Labs for Last 24 Hours: Temp Pulse Resp BP Pulse Ox O2 Del Method 99.4 F 76 16 144/76 H 97 Room Air 07/14/24 08:00 07/14/24 08:00 07/14/24 08:00 07/14/24 08:00 07/14/24 08:00 07/14/24 08:00 Laboratory Results - last 24 hr 07/14/24 06:02: WBC 20.7 H* D, RBC 5.66, Hgb 13.2 L, Hct 41.9 L, MCV 74.0 L, MCH 23.3 L, MCHC 31.5 L, RDW 16.0, Plt Count 237, MPV 10.7 H, Neut % (Auto) 89.1 H, Lymph % (Auto) 7.0 L, Hayes % (Auto) 3.0, Eos % (Auto) 0.0 L, Baso % (Auto) 0.1, Neut # (Auto) 18.4 H, Lymph # (Auto) 1.5, Hayes # (Auto) 0.6, Eos # (Auto) 0.0, Baso # (Auto) 0.0, Total Counted 100, Neutrophils % (Manual) 88 H, Lymphocytes % (Manual) 11, Monocytes % (Manual) 1 L, Platelet Estimate Normal, Hypochromasia 2+, Anisocytosis 1+, Microcytosis 1+, Sodium 135 L, Potassium 4.7 D, Chloride 101, Carbon Dioxide 28, Anion Gap 10.7, BUN 12 D, Creatinine 0.70, Estimated Creat Clear 210, Estimated GFR 126, Est GFR ( Amer) 153, Glucose 121 H, Calcium 8.9, Magnesium 2.1, Total Bilirubin 0.9, AST 59 D, ALT 141 H D, Alkaline Phosphatase 77, Total Protein 6.8, Albumin 3.9 D, Globulin 2.9, Albumin/Globulin Ratio 1.3 I & O for Labs for Last 24 Hours: Intake & Output 07/11/24 07/12/24 07/13/24 07/14/24 11:59 11:59 11:59 11:59 Intake Total 300 / 300 1160 / 1160 Output Total 0 / 0 0 / 0 Balance 300 / 300 1160 / 1160 Weight 221 lb 229 lb 1.6 oz Constitutional: no acute distress Head: Present normocephalic Respiratory: Absent respiratory distress Comment:: No JVD GI: Present soft and tenderness Rectal (male): Present deferred Results Labs 07/14/24 06:02 07/14/24 06:02 Labs: Laboratory Results - last 24 hr 07/14/24 06:02: WBC 20.7 H* D, RBC 5.66, Hgb 13.2 L, Hct 41.9 L, MCV 74.0 L, MCH 23.3 L, MCHC 31.5 L, RDW 16.0, Plt Count 237, MPV 10.7 H, Neut % (Auto) 89.1 H, Lymph % (Auto) 7.0 L, Hayes % (Auto) 3.0, Eos % (Auto) 0.0 L, Baso % (Auto) 0.1, Neut # (Auto) 18.4 H, Lymph # (Auto) 1.5, Hayes # (Auto) 0.6, Eos # (Auto) 0.0, Baso # (Auto) 0.0, Total Counted 100, Neutrophils % (Manual) 88 H, Lymphocytes % (Manual) 11, Monocytes % (Manual) 1 L, Platelet Estimate Normal, Hypochromasia 2+, Anisocytosis 1+, Microcytosis 1+, Sodium 135 L, Potassium 4.7 D, Chloride 101, Carbon Dioxide 28, Anion Gap 10.7, BUN 12 D, Creatinine 0.70, Estimated Creat Clear 210, Estimated GFR 126, Est GFR ( Amer) 153, Glucose 121 H, Calcium 8.9, Magnesium 2.1, Total Bilirubin 0.9, AST 59 D, ALT 141 H D, Alkaline Phosphatase 77, Total Protein 6.8, Albumin 3.9 D, Globulin 2.9, Albumin/Globulin Ratio 1.3 Assessment and Plan *Assessment and plan (1) Abdominal pain, RUQ (right upper quadrant): Status: Acute Category: Medical Code(s): R10.11 - Right upper quadrant pain Plan Patient has symptoms consistent with cholecystitis based on clinical presentation and sonographic findings. He is anxious to proceed with surgery. I explained him the nature and details of the proposed procedure along with associated risks including, but not limited to, bleeding, infection, damage to adjacent structures including liver, biliary tree, bowel, as well as the need for possible open procedure. He understands and agrees to proceed. Given his prior history of umbilical hernia repair may need alternative method of abdominal injury.
--- NOTE | 2024-07-14 12:07 | P.PNANES_ITS ---
[facility] Disclaimer: The information contained in this section may have been updated after the patient was seen, as this information can be updated by other users. Medical History (Updated 07/13/24 @ 07:31 by Yared Rai MD) Irritable bowel syndrome Right upper quadrant pain GERD (gastroesophageal reflux disease) Abnormal computerized axial tomography of chest Chronic cough Abnormal EKG Allergies Multiple lung nodules on CT Atypical pneumonia Dyspnea on exertion Elevated diaphragm Surgical History History of bronchoscopy History of thoracentesis History of thoracotomy History of thumb surgery History of umbilical hernia repair History of shoulder surgery Family History Other Family history of cancer Hypertension Social History Smoking Status: Current every day smoker alcohol intake: never substance use type: denies use current occupational status: employed Travel in the last 8 weeks: None household members: spouse housing: house lives independently: Yes marital status: service: Yes usp: No caffeine: No [facility] Anesthesia Checklist Patient Identification Patient Identification: Arm Band Structural Data Admitted From: Home Planned Operative Procedure/s: Laparoscopic Cholecystectomy Consent for Planned Operative Procedure(s) Verified: Yes Verified Documents: Surgical Consent and History and Physical NPO Status Verified Time NPO: 00:00 Additional verifications Anesthesia Reactions: No Hx Blood Transfusions: No Blood Transfusion Reaction: No Airway Assessment Mallampati Score:: Class II C-Spine Mobility Assessed: Yes TMJ Mobility Assessed: Yes Neurological Assessment Level of Consciousness: Awake, Alert and Appropriate Anesthesia Plan Anesthesia Risk discussed: Yes Anesthesia Plan: Verified ASA Class: III Anesthesia Type: General
[2024-07-14] MEDS: CEFAZOLIN 1GM VIAL 2 GM (12:12)
[2024-07-14] MEDS: ROPIVACAINE 0.5% 30ML VIAL 150 MG (12:37)
[2024-07-14] MEDS: LIDOCAINE 1% 20ML MDV 20 ML (12:37)
[2024-07-14] MEDS: SODIUM CHLORIDE IRRIG SOLUTION 3,000 ML 100 ML IR (12:38)
--- NOTE | 2024-07-14 14:15 | EXP.OP.NOTE ---
Date of procedure: 07/14/24 Pre-op Diagnosis:: Acute cholecystitis Post-op Diagnosis:: Same Procedure performed:: Laparoscopic cholecystectomy Surgeon:: Huber North MD METAL FLOW COORDINATOR:: Yoav Hebert Anesthesia: SHAISTA Estimated blood loss (mL): 50 Clinical Note:: Patient is a 39-year-old [facility]. He has a history of lung surgery and phrenic nerve dysfunction. He had presented to the emergency department on 07/12/2024 with some right upper quadrant pain. He underwent extremely thorough workup. He was managed as an outpatient. He presented back to the emergency department on 07/13/2024 with ongoing pain. Initially this was felt to be possibly muscle strain. He was admitted for inpatient management and pain control and pulmonary consultation. After admission his presentation seemed to be more consistent potentially with gallbladder etiology. Plan was made for gallbladder ultrasound in the morning of 07/14/2024. He had some elevation of his ALT after admission to 141 and initially was 24. White blood cell count increased to 20,000 although he had been given steroids for possible pulmonary etiology. Gallbladder ultrasound revealed sludge and stones in the gallbladder with mild gallbladder wall thickening with no biliary ductal dilatation. Surgical consultation was obtained. Of note, the patient did undergo previous umbilical hernia repair in [place] and had a laparoscopy for possible recurrence with Dr. Blood. He did have previous evaluation in the emergency department in March for similar symptoms. However, since this hospitalization his right upper quadrant pain has been quite severe. He describes it as stabbing and radiating through to his back. Operative findings:: He had an acutely inflamed distended thickened gallbladder. There was edema around the gallbladder. There were several branching veins posterior to the gallbladder. Incidentally noted was rather redundant gas-filled colon throughout. Evidence of previous umbilical hernia repair with mesh intact and no evidence of any recurrence. Operative note:: Consent was obtained and patient was taken to the operating room. He was positioned in supine position. General anesthesia was induced via endotracheal tube. Abdomen was prepped and draped in the standard surgical fashion. Due to previous umbilical hernia repair with mesh through left subcostal incision optical trocar was carefully inserted into the peritoneal cavity. CO2 pneumoperitoneum was achieved. Laparoscopic surveillance was carried out. Umbilical area was inspected. Previously placed mesh was visualized with when found to be in good position without any evidence of umbilical hernia recurrence. Supraumbilical incision was made a couple centimeters above the mesh. 11 mm optical trocar was inserted. 5 mm laparoscope was replaced with the 10 mm 0 degree laparoscope. Patient was then positioned in reverse Trendelenburg left side down. A couple 5 mm trocars were inserted in the right upper abdomen. 10 mm trocar was inserted in the epigastrium. Gallbladder was easily identified and found to be distended and acutely inflamed with edema and thickening. It was rather tense. Laparoscopic aspirator was inserted and the fundus of the gallbladder was punctured and aspirated to allow for retraction. Hemoclip was then placed at this site. Gallbladder was then retracted anteriorly and superiorly over the dome of the liver. Infundibulum of the gallbladder is retracted anterior laterally. There was some edema around the bessy hepatis. Blunt dissection was carried out carefully ultimately identifying the cystic duct. Cystic duct was isolated. Cystic artery was identified somewhat posterior. There was some inflammatory response around the bessy hepatis. Several times Surgicel was placed temporarily for hemostasis at the dissection plane and then removed. Cystic duct was isolated, clipped, and divided. Cystic artery was carefully coagulated with IBIS ultrasonic harmonic sangeetha and divided. The gallbladder was dissected free from the liver in a retrograde fashion using IBIS ultrasonic harmonic sangeetha. Gallbladder was placed within an Endo Catch retrieval device and removed from the peritoneal cavity via the umbilical trocar site which required some extension of the fascial incision for delivery of the distended thickened gallbladder. Gallbladder fossa was then inspected for hemostasis. There appeared to be good hemostasis. Irrigation and suctioning was performed until clear. Trocars were then removed the CO2 pneumoperitoneum was evacuated. Fascia at the supraumbilical incision was closed with several interrupted 0 Ethibond sutures. Local anesthetic was infiltrated. Skin incisions were closed with 4-0 Monocryl in a subcuticular fashion. Dermabond and dressings were applied. Condition: stable Disposition: PACU Complications:: None immediately apparent
--- NOTE | 2024-07-14 14:26 | EXP.ANES.I ---
[facility] Anesthesia Record Part I Anesthesia Record I Intake, IV Amount: 900 Hydration: Adequate Estimated blood loss (mL): 50 Urine output (mL): 0 Blood Products used (#): none Blood Pressure: 158/98 SaO2: 93 Pulse Rate: 95 Airway Patency: Patent Respiratory Rate: 22 Temperature: 97.7 F Patient is:: Drowsy and Stable Stable to PACU at:: 14:17
--- NOTE | 2024-07-14 14:57 | EXP.PULM.PN ---
Subjective *Date: 07/14/24 *Time: 14:57 Interval history: No acute respiratory vents overnight. Continue to complain of abdominal pain nausea and vomiting with no significant improvement. Pulmonology Exam Inpatient Vital signs and Labs for Last 24 Hours: Temp Pulse Resp BP Pulse Ox O2 Del Method 98.2 F 91 H 16 168/89 H 95 Room Air 07/14/24 14:47 07/14/24 14:47 07/14/24 14:47 07/14/24 14:47 07/14/24 14:47 07/14/24 14:47 Laboratory Results - last 24 hr 07/14/24 06:02: WBC 20.7 H* D, RBC 5.66, Hgb 13.2 L, Hct 41.9 L, MCV 74.0 L, MCH 23.3 L, MCHC 31.5 L, RDW 16.0, Plt Count 237, MPV 10.7 H, Neut % (Auto) 89.1 H, Lymph % (Auto) 7.0 L, Lawrence % (Auto) 3.0, Eos % (Auto) 0.0 L, Baso % (Auto) 0.1, Neut # (Auto) 18.4 H, Lymph # (Auto) 1.5, Lawrence # (Auto) 0.6, Eos # (Auto) 0.0, Baso # (Auto) 0.0, Total Counted 100, Neutrophils % (Manual) 88 H, Lymphocytes % (Manual) 11, Monocytes % (Manual) 1 L, Platelet Estimate Normal, Hypochromasia 2+, Anisocytosis 1+, Microcytosis 1+, Sodium 135 L, Potassium 4.7 D, Chloride 101, Carbon Dioxide 28, Anion Gap 10.7, BUN 12 D, Creatinine 0.70, Estimated Creat Clear 210, Estimated GFR 126, Est GFR ( Amer) 153, Glucose 121 H, Calcium 8.9, Magnesium 2.1, Total Bilirubin 0.9, AST 59 D, ALT 141 H D, Alkaline Phosphatase 77, Total Protein 6.8, Albumin 3.9 D, Globulin 2.9, Albumin/Globulin Ratio 1.3 Temp Pulse Resp BP Pulse Ox O2 Del Method 98.3 F 100 H 18 139/90 95 Room Air 07/13/24 07:40 07/13/24 07:40 07/13/24 07:40 07/13/24 07:40 07/13/24 07:40 07/13/24 08:00 Laboratory Results - last 24 hr 07/13/24 02:28: VBG pH 7.40, VBG pCO2 43.8, VBG pO2 65.5 H, VBG HCO3 26.2, VBG Total CO2 27.6 H, VBG O2 Saturation 92.8 H, VBG Base Excess 1.3, VBG Lactic Acid 1.1 07/13/24 02:36: WBC 16.4 H, RBC 6.05, Hgb 14.1, Hct 45.5, MCV 75.2 L, MCH 23.3 L, MCHC 31.0 L, RDW 16.2, Plt Count 255, MPV 10.5 H, Neut % (Auto) 74.4, Lymph % (Auto) 14.2, Lawrence % (Auto) 9.7 H, Eos % (Auto) 0.4, Baso % (Auto) 0.4, Neut # (Auto) 12.2 H, Lymph # (Auto) 2.3, Lawrence # (Auto) 1.6 H, Eos # (Auto) 0.1, Baso # (Auto) 0.1, Total Counted 100, Neutrophils % (Manual) 78 H, Band Neutrophils % 2.0, Lymphocytes % (Manual) 11, Monocytes % (Manual) 8, Eosinophils % (Manual) 1, Platelet Estimate Normal, Poikilocytosis 1+, Anisocytosis 1+, Microcytosis 1+, Target Cells 1+, Sodium 139, Potassium 3.3 L D, Chloride 108 H, Carbon Dioxide 23, Anion Gap 11.3, BUN 7 L D, Creatinine 0.70 D, Estimated Creat Clear 205, Estimated GFR 126, Est GFR ( Amer) 153 D, Glucose 133 H, Lactate 1.3, Calcium 8.6, Total Bilirubin 0.6, AST 33, ALT 24, Alkaline Phosphatase 113, Troponin I < 0.01, Total Protein 6.4, Albumin 3.5 D, Globulin 2.9, Albumin/Globulin Ratio 1.2, HCV Ab FRAN w/Rflx PCR Qn Negative, HIV Ag/Ab Combo Qual Negative 07/13/24 07:12: Troponin I < 0.01 07/13/24 08:40: Troponin I < 0.01 I & O for Labs for Last 24 Hours: Intake & Output 07/11/24 07/12/24 07/13/24 07/14/24 23:59 23:59 23:59 23:59 Intake Total 860 / 1460 1500 / 1500 Output Total 0 / 0 0 / 0 Balance 860 / 1460 1500 / 1500 Weight 221 lb 229 lb 1.6 oz Intake & Output 07/10/24 07/11/24 07/12/24 07/13/24 23:59 23:59 23:59 23:59 Intake Total 300 / 300 Output Total 0 / 0 Balance 300 / 300 Weight 221 lb Constitutional: Present mild distress Head: Present normocephalic and atraumatic ENT: Present normal exam, normal oropharynx and mucous membranes moist Neck: Present normal inspection and full ROM Respiratory: Present diminished air movement and able to speak in complete sentences; Absent respiratory distress, rhonchi, stridor, wheezes or crackles Cardiac: Present S1/S2, Tachycardia and radial pulses present GI: Present soft, distention and tenderness; Absent guarding Skin: Present intact; Absent cyanosis or jaundice Neuro: Present alert, awake and oriented x 3 Extremities: Present normal inspection; Absent clubbing or cyanosis Psychiatric: Present normal affect and cooperative Assessment and Plan *Assessment and plan (1) Right-sided chest pain: Status: Acute Category: Medical Code(s): R07.9 - Chest pain, unspecified Plan Mr. Rangel is a 39-year-old male presented to the ER complaining of right lower quadrant/lower rib cage chest pain and pulmonary was called for further evaluation of possible pulmonary etiology of the noted chest pain. Patient admits chest pain started suddenly 24 to 48 hours after strenuous activity. Sharp nonradiating pain worsens with movement and deep breathing and moving even while holding his breath. focal tenderness also noted. Denies any recent trauma CT chest upon admission with consolidative/airspace changes. No pulmonary embolism. Chronic left lower lobe changes including scarring and pleural calcifications. Right upper lobe calcified nodule noted remains stable. No obvious pulmonary pleural chest parenchymal abnormalities noted in right lower lung montgomery to explain the pain at this point of time. Interval update: No acute respiratory vents overnight. Stable oxygen requirements. Ultrasound abdomen concerning for acute cholecystitis, surgery following. Plan: Albuterol as needed for the previously concerning reactive airway disease No further management recommendations from pulmonary standpoint at this point of time # Will schedule in-home polysomnography testing as an out-patient basis. #Patient would also benefit from outpatient GI consult evaluate for his uncontrolled acid reflux disease
[2024-07-14] MEDS: PIPERCILLIN/TAZO 3.375 GM in 0.9 % SODIUM CHLORIDE 50 ML IV ×2 (15:15→21:50)
--- NOTE | 2024-07-14 15:16 | EXP.ACUTE.PN ---
Subjective *Date: 07/14/24 *Time: 15:16 Interval history: Patient continues to have right upper quadrant pain this morning. NPO. Evaluated by surgery. Stable on room air. Afebrile. Medical Exam Vital signs and Labs for Last 24 Hours: Vital Signs Temp Pulse Pulse Resp BP BP Pulse Ox 07/14/24 14:47 98.2 F 91 H 16 168/89 H 95 07/14/24 14:37 98.1 F 87 16 165/90 H 94 L 07/14/24 14:28 97.7 F 95 H 22 158/98 H 07/14/24 14:27 98.1 F 87 16 165/90 H 94 L 07/14/24 14:17 98.1 F 83 16 163/97 H 94 L 07/14/24 11:37 99.4 F 76 16 144/76 H 97 07/14/24 11:00 07/14/24 09:00 07/14/24 08:00 07/14/24 08:00 99.4 F 76 16 144/76 H 97 07/14/24 06:40 07/14/24 05:00 07/14/24 04:00 98.8 F 66 16 110/68 99 07/14/24 03:00 07/14/24 01:00 07/13/24 23:00 07/13/24 21:00 07/13/24 20:00 07/13/24 20:00 97.8 F 62 16 119/78 98 07/13/24 19:00 07/13/24 17:00 07/13/24 16:00 98.7 F 78 16 119/73 98 O2 Del Method 07/14/24 14:47 Room Air 07/14/24 14:37 Room Air 07/14/24 14:28 07/14/24 14:27 Room Air 07/14/24 14:17 Room Air 07/14/24 11:37 Room Air 07/14/24 11:00 Room Air 07/14/24 09:00 Room Air 07/14/24 08:00 Room Air 07/14/24 08:00 Room Air 07/14/24 06:40 Room Air 07/14/24 05:00 Room Air 07/14/24 04:00 Room Air 07/14/24 03:00 Room Air 07/14/24 01:00 Room Air 07/13/24 23:00 Room Air 07/13/24 21:00 Room Air 07/13/24 20:00 Room Air 07/13/24 20:00 Room Air 07/13/24 19:00 Room Air 07/13/24 17:00 Room Air 07/13/24 16:00 Room Air Intake and Output 07/13/24 07/14/24 07/14/24 23:59 07:59 15:59 Intake Total 560 / 1460 600 / 1500 900 / 1500 Output Total 0 / 0 0 / 0 Balance 560 / 1460 600 / 1500 900 / 1500 Intake: Intake, Oral Amount 560 / 1460 600 / 600 Intake, Total IV Amount 900 / 900 Output: Output, Urine Amount 0 / 0 0 / 0 Other: Number of Unmeasured Voids 4 Weight 103.918 kg Patient Weight 07/14/24 23:59 Weight 103.918 kg Laboratory Results - last 24 hr 07/14/24 06:02: WBC 20.7 H* D, RBC 5.66, Hgb 13.2 L, Hct 41.9 L, MCV 74.0 L, MCH 23.3 L, MCHC 31.5 L, RDW 16.0, Plt Count 237, MPV 10.7 H, Neut % (Auto) 89.1 H, Lymph % (Auto) 7.0 L, [place] % (Auto) 3.0, Eos % (Auto) 0.0 L, Baso % (Auto) 0.1, Neut # (Auto) 18.4 H, Lymph # (Auto) 1.5, [place] # (Auto) 0.6, Eos # (Auto) 0.0, Baso # (Auto) 0.0, Total Counted 100, Neutrophils % (Manual) 88 H, Lymphocytes % (Manual) 11, Monocytes % (Manual) 1 L, Platelet Estimate Normal, Hypochromasia 2+, Anisocytosis 1+, Microcytosis 1+, Sodium 135 L, Potassium 4.7 D, Chloride 101, Carbon Dioxide 28, Anion Gap 10.7, BUN 12 D, Creatinine 0.70, Estimated Creat Clear 210, Estimated GFR 126, Est GFR ( Amer) 153, Glucose 121 H, Calcium 8.9, Magnesium 2.1, Total Bilirubin 0.9, AST 59 D, ALT 141 H D, Alkaline Phosphatase 77, Total Protein 6.8, Albumin 3.9 D, Globulin 2.9, Albumin/Globulin Ratio 1.3 I & O for Labs for Last 24 Hours: Intake & Output 07/11/24 07/12/24 07/13/24 07/14/24 23:59 23:59 23:59 23:59 Intake Total 860 / 1460 1500 / 1500 Output Total 0 / 0 0 / 0 Balance 860 / 1460 1500 / 1500 Weight 100.244 kg 103.918 kg Constitutional: Present no acute distress, average body habitus and cooperative Head: Present atraumatic and normocephalic ENT: Present normal exam Respiratory: Present normal respiratory effort; Absent rhonchi, stridor, wheezes or crackles Cardiac: Present Reg Rate and Rhythm GI: Present soft, tenderness (Right upper quadrant, Ibrahim sign positive, guarding) and normal bowel sounds; Absent distention Extremities: Present normal inspection and full ROM Skin: Present intact; Absent erythema Neuro: Present Grossly Intact, alert, awake, oriented x 3 and moves all extremities Assessment and Plan *Assessment and plan (1) Abdominal pain, RUQ (right upper quadrant): Status: Acute Category: Medical Code(s): R10.11 - Right upper quadrant pain (2) Cholecystitis: Status: Acute Category: Medical Code(s): K81.9 - Cholecystitis, unspecified (3) GERD (gastroesophageal reflux disease): Status: Acute Qualifiers: Esophagitis presence: esophagitis presence not specified Qualified Code(s): K21.9 - Gastro-esophageal reflux disease without esophagitis Category: Medical Code(s): K21.9 - Gastro-esophageal reflux disease without esophagitis (4) Isolated dextrocardia: Status: Chronic Category: Medical Code(s): Q24.0 - Dextrocardia Plan Ankit Rangel is a 39-year-old male who presented with right upper quadrant abdominal pain and is being evaluated for cholecystitis versus muscle strain. Right upper quadrant ultrasound concerning for cholecystitis. Surgery consulted, taken for cholecystectomy today. Will monitor overnight. Problems addressed as follows: #Right upper quadrant abdominal pain #cholelithiasis/cholecystitis ? 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 ? However, RUQ pain is worse after eating and a positive Ibrahim's sign. Highly suspicious for cholelithiasis/cholecystitis. -Right upper quadrant ultrasound positive for gallbladder disease. Discussed case with surgery, taken for cholecystectomy today. Tolerated procedure well. Recommend monitoring overnight. Will continue 24 hours of antibiotics. Advance diet and monitor for pain control needs. -Continue oxycodone 5 mg as needed every 4 hours along with morphine 4 mg for breakthrough pain every 2-4 hours. Monitor for toxicity. -Low-fat diet. -White count elevated at 20.7. Kidney function normal with BUN 12, creatinine 0.7. Repeat CBC, CMP, magnesium ordered for the morning. #GERD: Resumed home PPI. Of note, patient has isolated dextrocardia. Per my review of CT of chest, heart is rotated to the right side of his chest. Not just displaced from elevated diaphragm. No other anomalies. Full code DVT prophylaxis: Lovenox 40 mg Low-fat diet
[2024-07-14] MEDS: MORPHINE 4MG/ML SYRINGE 4 MG IV ×2 (16:33→18:35)
--- NOTE | 2024-07-14 19:12 | PC.NURSE ---
lap dressings c/d/i. remains on RA, monitoring post op vitals. treating pain per MAR, patient has voided twice after procedure. tolerating diet well.call light within reach.
[2024-07-14] MEDS: PANTOPRAZOLE 40MG TABLET 40 MG PO (21:49)
[2024-07-14] MEDS: SIMETHICONE 80MG CHEWABLE TABLET 80 MG PO (22:10)
[2024-07-14] MEDS: HYDROMORPHONE 2MG/ML SYRINGE 0.5 MG IV (22:10)
[2024-07-15] MEDS: OXYCODONE 5MG W/APAP 325MG TABLET 2 EACH PO ×6 (00:15→22:37)
[2024-07-15] MEDS: ONDANSETRON 4MG/2ML VIAL 4 MG IV ×3 (00:16→20:32)
[2024-07-15 03:30] VITALS: BMI 30.8
[2024-07-15] MEDS: HYDROMORPHONE 2MG/ML SYRINGE 0.5 MG IV ×2 (03:39→08:29)
[2024-07-15] MEDS: LIDOCAINE 5% TRANSDERMAL PATCH 1 EACH TP (03:39)
[2024-07-15] MEDS: PIPERCILLIN/TAZO 3.375 GM in 0.9 % SODIUM CHLORIDE 50 ML IV ×4 (03:41→20:21)
[2024-07-15 07:20] LABS: Basophils % 0.1 % (0.1-2.0); Hematocrit 40.6 % (42.0-52.0); Hemoglobin 12.6 g/dL (14.1-18.0); Lymphocytes # 1.9 K/mm3 (0.7-4.5); Lymphocytes % 9.8 % (10-50); Mean Corpuscular Hemoglobin 22.9 pg (27.0-31.2); Mean Corpuscular Volume 73.7 fl (80-94); Mean Platelet Volume 10.8 fl (7.4-10.4); Monocytes # 1.6 K/mm3 (0.1-1.0); Monocytes % 8.3 % (1.7-9.3); Neutrophils # 15.4 K/mm3 (1.8-7.8); Neutrophils % 81.2 % (37.0-80.0); Platelet Count 250 K/mm3 (142-424); Red Blood Count 5.51 M/mm3 (4.60-6.20)
[2024-07-15 07:21] LABS: MANUAL DIFFERENTIAL MANUAL DIFFERENTIAL (MANUAL DIFF)
[2024-07-15 07:32] LABS: Alanine Aminotransferase 89 U/L (12-78); Albumin Level 3.8 g/dl (3.5-5.0); Albumin/Globulin Ratio 1.5 (1.1-1.8); Alkaline Phosphatase 62 U/L (38-126); Anion Gap 9.9 mEq/L (5-15); Aspartate Amino Transferase 38 U/L (17-59); Bilirubin,Total 0.3 mg/dl (0.2-1.3); Blood Urea Nitrogen 10 mg/dl (9-20); Calcium 8.8 mg/dl (8.4-10.2); Carbon Dioxide 30 mmol/L (22.0-30.0); Chloride 99 mmol/L (98-107); Creatinine Clearance Estimated 166 mL/min (50-200); Estimated Glomerular Filt Rate 94 ml/min (>60); GFR (African American) 114 ML/MIN (>60); Globulin 2.6 g/dL (1.3-3.2); Glucose 100 mg/dl (74-100); Potassium 3.9 mmoL/L (3.5-5.1); Sodium 135 mmol/L (136-145); Total Protein,Serum 6.4 g/dl (6.3-8.2)
[2024-07-15 07:48] LABS: Magnesium 2.3 mg/dl (1.6-2.3)
[2024-07-15 08:00] VITALS: BP 108/61; PULSE 79; RESP 21; TEMP 36.9; O2SAT 98
--- NOTE | 2024-07-15 08:15 | EXP.SURG.PN ---
Subjective Narrative: Patient complains of soreness. Requiring some IV narcotic medicine. Ambulating. No nausea. Complains of bloating - simethicone and miralax started. Exam Data for Last 24 hours Vital signs and Labs for Last 24 Hours: Temp Pulse Resp BP Pulse Ox O2 Del Method 98.0 F 93 H 18 129/79 95 Room Air 07/14/24 21:35 07/14/24 21:35 07/14/24 21:35 07/14/24 21:35 07/14/24 21:35 07/15/24 07:00 Laboratory Results - last 24 hr 07/14/24 06:02: Total Counted 100, Neutrophils % (Manual) 88 H, Lymphocytes % (Manual) 11, Monocytes % (Manual) 1 L, Platelet Estimate Normal, Hypochromasia 2+, Anisocytosis 1+, Microcytosis 1+ 07/15/24 07:05: WBC 19.0 H, RBC 5.51, Hgb 12.6 L, Hct 40.6 L, MCV 73.7 L, MCH 22.9 L, MCHC 31.0 L, RDW 16.0, Plt Count 250, MPV 10.8 H, Neut % (Auto) 81.2 H, Lymph % (Auto) 9.8 L, [place] % (Auto) 8.3, Eos % (Auto) 0.0 L, Baso % (Auto) 0.1, Neut # (Auto) 15.4 H, Lymph # (Auto) 1.9, [place] # (Auto) 1.6 H, Eos # (Auto) 0.0, Baso # (Auto) 0.0, Sodium 135 L, Potassium 3.9, Chloride 99, Carbon Dioxide 30, Anion Gap 9.9, BUN 10, Creatinine 0.90 D, Estimated Creat Clear 166, Estimated GFR 94, Est GFR ( Amer) 114 D, Glucose 100, Calcium 8.8, Magnesium 2.3, Total Bilirubin 0.3, AST 38 D, ALT 89 H D, Alkaline Phosphatase 62, Total Protein 6.4, Albumin 3.8, Globulin 2.6, Albumin/Globulin Ratio 1.5 I & O for Last 24 hours: Intake & Output 07/12/24 07/13/24 07/14/24 07/15/24 11:59 11:59 11:59 11:59 Intake Total 300 / 300 1160 / 1160 1740 / 1740 Output Total 0 / 0 0 / 0 500 / 500 Balance 300 / 300 1160 / 1160 1240 / 1240 Weight 221 lb 229 lb 1.6 oz 232 lb 6.4 oz *Routine Abdominal Exam Abdominal: Present distended Comments: LUQ incision with some serosanguineous drainage. Progress Note: A&P Assessment and plan (1) Abdominal pain, RUQ (right upper quadrant): Status: Acute Assessment and plan: Possible DC once pain controlled and ileus symptoms improve. (2) Cholecystitis: Status: Acute (3) GERD (gastroesophageal reflux disease): Status: Acute (4) Isolated dextrocardia: Status: Chronic
[2024-07-15 08:18] LABS: Hypochromasia 1+; Lymphocytes % 18 % (10-50); Monocytes % 2 % (2-9); Neutrophils % 80 % (42-76); Platelet Estimate Normal; Total Cells Counted 100
[2024-07-15] MEDS: ENOXAPARIN 40MG/0.4ML SYRINGE 40 MG SUBCUT (08:30)
[2024-07-15 09:08] LABS: Lipase 24 U/L (23-300)
--- NOTE | 2024-07-15 09:42 | P.PN_ITS ---
Subjective *Date: 07/15/24 *Time: 15:15 Interval history: No acute respiratory vents overnight. Denies any new respiratory complaints. Pulmonology Exam Inpatient Vital signs and Labs for Last 24 Hours: Temp Pulse Resp BP Pulse Ox O2 Del Method 98.0 F 93 H 18 129/79 95 Room Air 07/14/24 21:35 07/14/24 21:35 07/14/24 21:35 07/14/24 21:35 07/14/24 21:35 07/15/24 07:00 Laboratory Results - last 24 hr 07/15/24 07:05: WBC 19.0 H, RBC 5.51, Hgb 12.6 L, Hct 40.6 L, MCV 73.7 L, MCH 22.9 L, MCHC 31.0 L, RDW 16.0, Plt Count 250, MPV 10.8 H, Neut % (Auto) 81.2 H, Lymph % (Auto) 9.8 L, [place] % (Auto) 8.3, Eos % (Auto) 0.0 L, Baso % (Auto) 0.1, Neut # (Auto) 15.4 H, Lymph # (Auto) 1.9, [place] # (Auto) 1.6 H, Eos # (Auto) 0.0, Baso # (Auto) 0.0, Total Counted 100, Neutrophils % (Manual) 80 H, Lymphocytes % (Manual) 18, Monocytes % (Manual) 2, Platelet Estimate Normal, Hypochromasia 1+, Sodium 135 L, Potassium 3.9, Chloride 99, Carbon Dioxide 30, Anion Gap 9.9, BUN 10, Creatinine 0.90 D, Estimated Creat Clear 166, Estimated GFR 94, Est GFR ( Amer) 114 D, Glucose 100, Calcium 8.8, Magnesium 2.3, Total Bilirubin 0.3, AST 38 D, ALT 89 H D, Alkaline Phosphatase 62, Total Protein 6.4, Albumin 3.8, Globulin 2.6, Albumin/Globulin Ratio 1.5, Lipase 24 Temp Pulse Resp BP Pulse Ox O2 Del Method 98.3 F 100 H 18 139/90 95 Room Air 07/13/24 07:40 07/13/24 07:40 07/13/24 07:40 07/13/24 07:40 07/13/24 07:40 07/13/24 08:00 Laboratory Results - last 24 hr 07/13/24 02:28: VBG pH 7.40, VBG pCO2 43.8, VBG pO2 65.5 H, VBG HCO3 26.2, VBG Total CO2 27.6 H, VBG O2 Saturation 92.8 H, VBG Base Excess 1.3, VBG Lactic Acid 1.1 07/13/24 02:36: WBC 16.4 H, RBC 6.05, Hgb 14.1, Hct 45.5, MCV 75.2 L, MCH 23.3 L , MCHC 31.0 L, RDW 16.2, Plt Count 255, MPV 10.5 H, Neut % (Auto) 74.4, Lymph % (Auto) 14.2, [place] % (Auto) 9.7 H, Eos % (Auto) 0.4, Baso % (Auto) 0.4, Neut # (Auto) 12.2 H, Lymph # (Auto) 2.3, [place] # (Auto) 1.6 H, Eos # (Auto) 0.1, Baso # (Auto) 0.1, Total Counted 100, Neutrophils % (Manual) 78 H, Band Neutrophils % 2.0, Lymphocytes % (Manual) 11, Monocytes % (Manual) 8, Eosinophils % (Manual) 1, Platelet Estimate Normal, Poikilocytosis 1+, Anisocytosis 1+, Microcytosis 1+, Target Cells 1+, Sodium 139, Potassium 3.3 L D, Chloride 108 H, Carbon Dioxide 23, Anion Gap 11.3, BUN 7 L D, Creatinine 0.70 D, Estimated Creat Clear 205, Estimated GFR 126, Est GFR ( Amer) 153 D, Glucose 133 H, Lactate 1.3, Calcium 8.6, Total Bilirubin 0.6, AST 33, ALT 24, Alkaline Phosphatase 113, Troponin I < 0.01, Total Protein 6.4, Albumin 3.5 D, Globulin 2.9, Albumin/Globulin Ratio 1.2, HCV Ab FRAN w/Rflx PCR Qn Negative, HIV Ag/Ab Combo Qual Negative 07/13/24 07:12: Troponin I < 0.01 07/13/24 08:40: Troponin I < 0.01 I & O for Labs for Last 24 Hours: Intake & Output 07/12/24 07/13/24 07/14/2422/25 23:59 23:59 23:59 23:59 Intake Total 860 / 1460 1860 / 2340 480 / 480 Output Total 0 / 0 500 / 500 0 / 0 Balance 860 / 1460 1360 / 1840 480 / 480 Weight 221 lb 229 lb 1.6 oz 232 lb 6.4 oz Intake & Output 07/10/24 07/11/24 07/12/24 07/13/24 23:59 23:59 23:59 23:59 Intake Total 300 / 300 Output Total 0 / 0 Balance 300 / 300 Weight 221 lb Constitutional: Present mild distress Head: Present normocephalic and atraumatic ENT: Present normal exam, normal oropharynx and mucous membranes moist Neck: Present normal inspection and full ROM Respiratory: Present diminished air movement and able to speak in complete sentences; Absent respiratory distress, rhonchi, stridor, wheezes or crackles Cardiac: Present S1/S2, Tachycardia and radial pulses present GI: Present tenderness; Absent guarding Skin: Present intact; Absent cyanosis or jaundice Neuro: Present alert, awake and oriented x 3 Extremities: Present normal inspection; Absent clubbing or cyanosis Psychiatric: Present normal affect and cooperative Assessment and Plan *Assessment and plan (1) Right-sided chest pain: Status: Acute Category: Medical Code(s): R07.9 - Chest pain, unspecified Plan Mr. Rangel is a 39-year-old male presented to the ER complaining of right lower quadrant/lower rib cage chest pain and pulmonary was called for further evaluation of possible pulmonary etiology of the noted chest pain. Patient admits chest pain started suddenly 24 to 48 hours after strenuous activity. Sharp nonradiating pain worsens with movement and deep breathing and moving even while holding his breath. focal tenderness also noted. Denies any recent trauma CT chest upon admission with consolidative/airspace changes. No pulmonary embolism. Chronic left lower lobe changes including scarring and pleural calcifications. Right upper lobe calcified nodule noted remains stable. No obvious pulmonary pleural chest parenchymal abnormalities noted in right lower lung [place] to explain the pain at this point of time. Interval update: No acute respiratory vents overnight. Stable oxygen requirements. Acute cholecystitis status post cholecystectomy. Currently receiving antibiotics. No new respiratory events. Continue to remain on room air. Admit significant improvement in his pain. Continue to complain of intermittent cough with no productive phlegm. Plan: Incentive spirometry Albuterol as needed for the previously concerning reactive airway disease No further management recommendations from pulmonary standpoint at this point of time # Will schedule in-home polysomnography testing as an out-patient basis. #Patient would also benefit from outpatient GI consult evaluate for his uncontrolled acid reflux disease
[2024-07-15] MEDS: MAGNESIUM CITRATE 10OZ BOTTLE 10 OZ PO (09:58)
[2024-07-15] MEDS: SIMETHICONE 80MG CHEWABLE TABLET 80 MG PO ×2 (09:58→20:32)
[2024-07-15] MEDS: SENNOSIDES 8.6MG/DOCUSATE 50MG TABLET 2 TAB PO ×2 (09:58→20:22)
[2024-07-15] MEDS: KETOROLAC 30MG/ML VIAL 30 MG IV (11:58)
[2024-07-15] MEDS: DICYCLOMINE 10MG CAPSULE 20 MG PO (14:22)
--- NOTE | 2024-07-15 15:55 | P.PN_ITS ---
Subjective *Date: 07/15/24 *Time: 15:55 Interval history: Tolerating p.o. intake. Still having significant abdominal pain. Stable on room air. Afebrile. Medical Exam Vital signs and Labs for Last 24 Hours: Vital Signs Temp Pulse Resp BP Pulse Ox O2 Del Method 07/15/24 14:43 Room Air 07/15/24 13:00 Room Air 07/15/24 11:00 Room Air 07/15/24 09:00 Room Air 07/15/24 08:00 98.4 F 79 21 108/61 L 98 Room Air 07/15/24 08:00 Room Air 07/15/24 07:00 Room Air 07/15/24 05:00 Room Air 07/15/24 03:00 Room Air 07/15/24 01:00 Room Air 07/14/24 23:00 Room Air 07/14/24 21:35 98.0 F 93 H 18 129/79 95 Room Air 07/14/24 21:00 Room Air 07/14/24 20:35 98.1 F 94 H 18 136/80 95 Room Air 07/14/24 20:00 Room Air 07/14/24 19:35 97.9 F 95 H 16 133/67 95 Room Air 07/14/24 19:00 Room Air 07/14/24 18:35 98.0 F 98 H 18 146/77 H 96 Room Air 07/14/24 17:35 95 H 16 131/72 94 L Room Air 07/14/24 17:05 98.1 F 96 H 16 158/97 H 94 L Room Air 07/14/24 17:00 Room Air 07/14/24 16:35 93 H 20 151/88 H 95 Room Air 07/14/24 16:05 101 H 18 123/79 94 L Room Air Intake and Output 07/14/24 07/15/24 07/15/24 23:59 07:59 15:59 Intake Total 360 / 2340 480 / 1480 1000 / 1480 Output Total 500 / 500 0 / 0 0 / 0 Balance -140 / 1840 480 / 1480 1000 / 1480 Intake: Intake, Oral Amount 360 / 1440 480 / 1480 1000 / 1480 Output: Output, Urine Amount 500 / 500 0 / 0 0 / 0 Other: Number of Unmeasured Voids 1 2 3 Weight 105.415 kg Patient Weight 07/15/24 23:59 Weight 105.415 kg Laboratory Results - last 24 hr 07/15/24 07:05: WBC 19.0 H, RBC 5.51, Hgb 12.6 L, Hct 40.6 L, MCV 73.7 L, MCH 22.9 L, MCHC 31.0 L, RDW 16.0, Plt Count 250, MPV 10.8 H, Neut % (Auto) 81.2 H, Lymph % (Auto) 9.8 L, [place] % (Auto) 8.3, Eos % (Auto) 0.0 L, Baso % (Auto) 0.1, Neut # (Auto) 15.4 H, Lymph # (Auto) 1.9, [place] # (Auto) 1.6 H, Eos # (Auto) 0.0, Baso # (Auto) 0.0, Total Counted 100, Neutrophils % (Manual) 80 H, Lymphocytes % (Manual) 18, Monocytes % (Manual) 2, Platelet Estimate Normal, Hypochromasia 1+, Sodium 135 L, Potassium 3.9, Chloride 99, Carbon Dioxide 30, Anion Gap 9.9, BUN 10, Creatinine 0.90 D, Estimated Creat Clear 166, Estimated GFR 94, Est GFR ( Amer) 114 D, Glucose 100, Calcium 8.8, Magnesium 2.3, Total Bilirubin 0.3, AST 38 D, ALT 89 H D, Alkaline Phosphatase 62, Total Protein 6.4, Albumin 3.8, Globulin 2.6, Albumin/Globulin Ratio 1.5, Lipase 24 I & O for Labs for Last 24 Hours: Intake & Output 07/12/24 07/13/24 07/14/24 07/15/24 23:59 23:59 23:59 23:59 Intake Total 860 / 1460 1860 / 2340 1480 / 1480 Output Total 0 / 0 500 / 500 0 / 0 Balance 860 / 1460 1360 / 1840 1480 / 1480 Weight 100.244 kg 103.918 kg 105.415 kg Constitutional: Present no acute distress, average body habitus and cooperative Head: Present atraumatic and normocephalic ENT: Present normal exam Respiratory: Present normal respiratory effort; Absent rhonchi, stridor, wheezes or crackles Cardiac: Present Reg Rate and Rhythm GI: Present soft, tenderness (Right upper quadrant, and at surgical incisions) and normal bowel sounds; Absent distention Extremities: Present normal inspection and full ROM Skin: Present intact; Absent erythema Neuro: Present Grossly Intact, alert, awake, oriented x 3 and moves all extremities Assessment and Plan *Assessment and plan (1) Cholecystitis: Status: Acute Category: Medical Code(s): K81.9 - Cholecystitis, unspecified (2) Abdominal pain, RUQ (right upper quadrant): Status: Acute Category: Medical Code(s): R10.11 - Right upper quadrant pain (3) GERD (gastroesophageal reflux disease): Status: Acute Qualifiers: Esophagitis presence: esophagitis presence not specified Qualified Code(s): K21.9 - Gastro-esophageal reflux disease without esophagitis Category: Medical Code(s): K21.9 - Gastro-esophageal reflux disease without esophagitis (4) Isolated dextrocardia: Status: Chronic Category: Medical Code(s): Q24.0 - Dextrocardia Plan Ankit Rangel is a 39-year-old male who presented with right upper quadrant abdominal pain and is being evaluated for cholecystitis versus muscle strain. Right upper quadrant ultrasound concerning for cholecystitis. Taken for cholecystectomy yesterday. Tolerated procedure well but having significant postprocedural pain. No bowel movement yet. Continues to require inpatient management. Problems addressed as follows: #Right upper quadrant abdominal pain #cholelithiasis/cholecystitis ? Right upper quadrant ultrasound showed cholecystitis, taken for cholecyst ectomy yesterday. Tolerated procedure well. Having significant pain however at trocar insertion sites in right upper quadrant. Requiring significant doses of opiates. Continue to monitor closely given oxycodone 10 mg every 4 hours and Dilaudid 0.5 mg IV every 4-6 hours. Monitoring for toxicity. -Continue Toradol 30 mg IV every 6 hours along with initiation of Bentyl. -Bowel regimen with magnesium citrate 10 mg once today, initiate docusate senna twice daily, bisacodyl suppository this afternoon if no bowel movement by 3 PM -Low-fat diet. -White count remains elevated at 19. Kidney function normal with BUN 10, creatinine 0.9. Hemoglobin stable at 13. Repeat CBC, CMP, magnesium ordered for the morning. #GERD: Continue home PPI. Of note, patient has isolated dextrocardia. Per my review of CT of chest, heart is rotated to the right side of his chest. Not just displaced from elevated diaphragm. No other anomalies. Full code DVT prophylaxis: Lovenox 40 mg Low-fat diet
[2024-07-15] MEDS: HYDROMORPHONE 2MG/ML SYRINGE 1 MG IV ×2 (15:56→20:23)
[2024-07-15] MEDS: BISACODYL 10MG SUPP 10 MG RC (15:57)
[2024-07-15] MEDS: PANTOPRAZOLE 40MG TABLET 40 MG PO (20:22)
[2024-07-15] MEDS: POLYETHYLENE GLYCOL 3350 17 GM PACKET PO (20:22)
[2024-07-15] MEDS: MINERAL OIL ENEMA 133ML 133 ML RC (22:38)
[2024-07-16] VITALS: BP 111/75; PULSE 67; RESP 18; TEMP 36.8; O2SAT 96
[2024-07-16] MEDS: HYDROMORPHONE 2MG/ML SYRINGE 1 MG IV ×2 (00:35→04:36)
[2024-07-16] MEDS: OXYCODONE 5MG W/APAP 325MG TABLET 2 EACH PO ×2 (02:43→11:29)
[2024-07-16] MEDS: PIPERCILLIN/TAZO 3.375 GM in 0.9 % SODIUM CHLORIDE 50 ML IV ×2 (02:43→09:15)
[2024-07-16 04:00] VITALS: BP 104/75; PULSE 64; RESP 20; TEMP 36.6; O2SAT 97; BMI 30.7
--- NOTE | 2024-07-16 07:13 | EXP.SURG.PN ---
Subjective Narrative: Patient has had some abdominal pain. Has done dozens of labs around the unit. Passing some gas but no bowel movement. Exam Data for Last 24 hours Vital signs and Labs for Last 24 Hours: Temp Pulse Resp BP Pulse Ox O2 Del Method 97.9 F 64 20 104/75 L 97 Room Air 07/16/24 04:00 07/16/24 04:00 07/16/24 04:00 07/16/24 04:00 07/16/24 04:00 07/16/24 06:48 Laboratory Results - last 24 hr 07/15/24 07:05: WBC 19.0 H, RBC 5.51, Hgb 12.6 L, Hct 40.6 L, MCV 73.7 L, MCH 22.9 L, MCHC 31.0 L, RDW 16.0, Plt Count 250, MPV 10.8 H, Neut % (Auto) 81.2 H, Lymph % (Auto) 9.8 L, [place] % (Auto) 8.3, Eos % (Auto) 0.0 L, Baso % (Auto) 0.1, Neut # (Auto) 15.4 H, Lymph # (Auto) 1.9, [place] # (Auto) 1.6 H, Eos # (Auto) 0.0, Baso # (Auto) 0.0, Total Counted 100, Neutrophils % (Manual) 80 H, Lymphocytes % (Manual) 18, Monocytes % (Manual) 2, Platelet Estimate Normal, Hypochromasia 1+, Sodium 135 L, Potassium 3.9, Chloride 99, Carbon Dioxide 30, Anion Gap 9.9, BUN 10, Creatinine 0.90 D, Estimated Creat Clear 166, Estimated GFR 94, Est GFR ( Amer) 114 D, Glucose 100, Calcium 8.8, Magnesium 2.3, Total Bilirubin 0.3, AST 38 D, ALT 89 H D, Alkaline Phosphatase 62, Total Protein 6.4, Albumin 3.8, Globulin 2.6, Albumin/Globulin Ratio 1.5, Lipase 24 I & O for Last 24 hours: Intake & Output 07/13/24 07/14/24 07/15/24 07/16/24 11:59 11:59 11:59 11:59 Intake Total 300 / 300 1160 / 1160 2240 / 2240 1020 / 1020 Output Total 0 / 0 0 / 0 500 / 500 0 / 0 Balance 300 / 300 1160 / 1160 1740 / 1740 1020 / 1020 Weight 221 lb 229 lb 1.6 oz 232 lb 6.4 oz 231 lb 4.238 oz *Routine Abdominal Exam Abdominal: Present soft Comments: Trocar sites dressed with stable serosanguineous drainage on left upper quadrant incision. Some bruising at umbilicus. Progress Note: A&P Assessment and plan (1) Cholecystitis: Status: Acute Assessment and plan: Labs pending. See how he does without the IV narcotic pain medication. He may shower. (2) Abdominal pain, RUQ (right upper quadrant): Status: Acute (3) GERD (gastroesophageal reflux disease): Status: Acute (4) Isolated dextrocardia: Status: Chronic
[2024-07-16 07:39] LABS: Basophils % 0.2 % (0.1-2.0); Eosinophils # 0.1 K/mm3 (0.0-0.4); Eosinophils % 0.4 % (0.1-12.0); Hematocrit 40.2 % (42.0-52.0); Hemoglobin 12.4 g/dL (14.1-18.0); Lymphocytes # 1.7 K/mm3 (0.7-4.5); Lymphocytes % 14.6 % (10-50); Mean Corpuscular HGB Conc 30.8 g/dL (31.8-35.4); Mean Corpuscular Volume 74.4 fl (80-94); Mean Platelet Volume 10.9 fl (7.4-10.4); Monocytes # 1.2 K/mm3 (0.1-1.0); Monocytes % 9.9 % (1.7-9.3); Neutrophils # 8.8 K/mm3 (1.8-7.8); Neutrophils % 74.2 % (37.0-80.0); Platelet Count 248 K/mm3 (142-424); White Blood Count 11.9 K/mm3 (4.8-10.8)
[2024-07-16 07:47] LABS: Alanine Aminotransferase 190 U/L (12-78); Albumin Level 3.7 g/dl (3.5-5.0); Albumin/Globulin Ratio 1.4 (1.1-1.8); Alkaline Phosphatase 70 U/L (38-126); Anion Gap 11.1 mEq/L (5-15); Aspartate Amino Transferase 114 U/L (17-59); Bilirubin,Total 0.9 mg/dl (0.2-1.3); Blood Urea Nitrogen 13 mg/dl (9-20); Calcium 8.4 mg/dl (8.4-10.2); Carbon Dioxide 32 mmol/L (22.0-30.0); Chloride 98 mmol/L (98-107); Creatinine Clearance Estimated 165 mL/min (50-200); Estimated Glomerular Filt Rate 94 ml/min (>60); GFR (African American) 114 ML/MIN (>60); Globulin 2.6 g/dL (1.3-3.2); Glucose 92 mg/dl (74-100); Potassium 4.1 mmoL/L (3.5-5.1); Sodium 137 mmol/L (136-145); Total Protein,Serum 6.3 g/dl (6.3-8.2)
[2024-07-16 08:00] VITALS: BP 133/83; PULSE 71; RESP 18; TEMP 36.5; O2SAT 96
[2024-07-16] MEDS: OXYCODONE 5MG W/APAP 325MG TABLET 1 EACH PO (08:02)
[2024-07-16] MEDS: MINERAL OIL 30 ML UDC PO (08:02)
[2024-07-16] MEDS: ONDANSETRON 4MG/2ML VIAL 4 MG IV (08:02)
[2024-07-16] MEDS: ENOXAPARIN 40MG/0.4ML SYRINGE 40 MG SUBCUT (08:03)
[2024-07-16] MEDS: SENNOSIDES 8.6MG/DOCUSATE 50MG TABLET 2 TAB PO (08:03)
--- NOTE | 2024-07-16 10:25 | HMH.PHAINT1 ---
Pharmacy Intervention Comments: COUNSELED PATIENT ON MEDICATIONS PRIOR TO DISCHARGE. PATIENT VERBALIZED UNDERSTANDING.
--- NOTE | 2024-07-16 12:07 | P.DS_ITS ---
General Admission date:: 07/13/24 Discharge date: 07/16/24 HPI HPI HPI: Patient is a 39-year-old [facility]. He has a history of lung surgery and phrenic nerve dysfunction. He had presented to the emergency department on 07/12/2024 with some right upper quadrant pain. He underwent extremely thorough workup. He was managed as an outpatient. He presented back to the emergency department on 07/13/2024 with ongoing pain. Initially this was felt to be possibly muscle strain. He was admitted for inpatient management and pain control and pulmonary consultation. After admission his presentation seemed to be more consistent potentially with gallbladder etiology. Plan was made for gallbladder ultrasound in the morning of 07/14/2024. He had some elevation of his ALT after admission to 141 and initially was 24. White blood cell count increased to 20,000 although he had been given steroids for possible pulmonary etiology. Gallbladder ultrasound revealed sludge and stones in the gallbladder with mild gallbladder wall thickening with no biliary ductal dilatation. Surgical consultation was obtained. Of note, the patient did undergo previous umbilical hernia repair in [place] and had a laparoscopy for possible recurrence with Dr. Blood. He did have previous evaluation in the emergency department in March for similar symptoms. However, since this hospitalization his right upper quadrant pain has been quite severe. He describes it as stabbing and radiating through to his back. Hospital Course Hospital Course Hospital Course: Ankit Rangel is a 39-year-old male who presented with right upper quadrant abdominal pain and is being evaluated for cholecystitis versus muscle strain. Right upper quadrant ultrasound concerning for cholecystitis. Taken for cholecystectomy yesterday. Tolerated procedure well but had difficulty with pain control afterward. Took 24 hours for him to begin passing gas. Pain showing improvement. Only on oral regimen at this time. Stable to discharge home with further management as an outpatient. Problems addressed as follows: #Right upper quadrant abdominal pain #cholelithiasis/cholecystitis ? Patient presented with right lower chest/right upper quadrant pain. Unclear etiology initially. Chest imaging relatively unremarkable other than chronic changes in his left lung field with elevated diaphragm. Of note, found to have isolated dextrocardia on chest CT. Heart is rotated to the right side of his chest. Right upper quadrant ultrasound was obtained showing cholecystitis. Patient was taken for cholecystectomy on 07/14/2024. Tolerated procedure well but had significant postprocedural pain at trocar sites in the right upper quadrant. Liver enzymes remained relatively unremarkable. On morning of discharge bilirubin 0.9, AST 114, ALT 190. Weaned to oral pain control with oxycodone. Will continue oxycodone, encouraged taper at discharge. Patient passing gas but has not had a bowel movement yet. Aggressive bowel regimen during admission. Continue regimen with docusate senna twice daily. Continue mag citrate as needed. Tolerating p.o. intake. Afebrile. White count essentially normal. No indication for further antibiotics at discharge. White count likely reactive due to cholecystitis. Hemodynamically stable. Follow-up with surgery in the coming weeks. #GERD: Continue home PPI. Total time spent on discharge 32 minutes in counseling, documentation, chart review, and direct care with patient. Exam Data for Last 24 hours Vital signs and Labs for Last 24 Hours: Temp Pulse Resp BP Pulse Ox O2 Del Method 98.0 F 93 H 18 129/79 95 Room Air 07/14/24 21:35 07/14/24 21:35 07/14/24 21:35 07/14/24 21:35 07/14/24 21:35 07/15/24 01:00 Laboratory Results - last 24 hr 07/14/24 06:02: Total Counted 100, Neutrophils % (Manual) 88 H, Lymphocytes % (Manual) 11, Monocytes % (Manual) 1 L, Platelet Estimate Normal, Hypochromasia 2+, Anisocytosis 1+, Microcytosis 1+ I & O for Last 24 hours: Intake & Output 07/12/24 07/13/24 07/14/24 07/15/24 23:59 23:59 23:59 23:59 Intake Total 860 / 1460 1860 / 2340 480 / 480 Output Total 0 / 0 500 / 500 0 / 0 Balance 860 / 1460 1360 / 1840 480 / 480 Weight 100.244 kg 103.918 kg 105.415 kg Constitutional Constitutional: no acute distress, average body habitus and cooperative *Routine HEENT Exam Head: Present normocephalic Eye: Present EOMI and PERRL ENT: Present mucous membranes moist *Routine Neck Exam Neck: Present supple; Absent lymphadenopathy Routine Chest/Breast/Axilla Exam Comments: well healed left sided thoracotomy scars *Routine Respiratory Exam Respiratory: Present CTA bilaterally; Absent rhonchi, wheezes or crackles *Routine Cardiovascular Exam Cardiovascular: Present RRR *Routine Abdominal Exam Abdominal: Present soft, normoactive bowel sounds and tenderness (at surgical sites) *Routine Rectal Exam Patient deferred: visual exam *Routine Exam Patient deferred: penile exam *Routine Extremities Exam Extremities: Absent cyanosis, clubbing or edema *Routine Skin Exam Skin: Present warm; Absent rash Comments: tattoo sleeves bilaterally *Routine Neurological Exam Neurological: Present alert, oriented X3 and moving all extremities; Absent altered mental status Results Data Completed and Pending Labs on day of discharge: Labs from last 24 hours 07/14/24 06:02 Total Counted 100 Neutrophils % (Manual) 88 H Lymphocytes % (Manual) 11 Monocytes % (Manual) 1 L Platelet Estimate Normal Hypochromasia 2+ Anisocytosis 1+ Microcytosis 1+ DS: Diagnosis Discharge Diagnosis (1) Abdominal pain, RUQ (right upper quadrant): Status: Acute Code(s): R10.11 - Right upper quadrant pain (2) Cholecystitis: Status: Acute Code(s): K81.9 - Cholecystitis, unspecified (3) GERD (gastroesophageal reflux disease): Status: Acute Code(s): K21.9 - Gastro-esophageal reflux disease without esophagitis Qualifiers: Esophagitis presence: esophagitis presence not specified Qualified Code(s): K21.9 - Gastro-esophageal reflux disease without esophagitis (4) Isolated dextrocardia: Status: Chronic Code(s): Q24.0 - Dextrocardia Meds Home Medications and Allergies Home Medications ?Medication ?Instructions ?Recorded ?Confirmed ?Type omeprazole 40 mg capsule,delayed 40 mg PO DAILY 04/28/24 07/13/24 History release methocarbamol 500 mg tablet 500 mg PO Q6H #20 tabs 07/12/24 07/13/24 Rx oxycodone-acetaminophen 5 mg-325 1 - 2 tab PO Q4HP PRN Severe Pain 07/16/24 Rx mg tablet (7-10) 3 days #25 tabs sennosides 8.6 mg-docusate sodium 2 tab PO BID 10 days #40 tabs 07/16/24 Rx 50 mg tablet (Stimulant Laxative Plus) New Prescriptions to Start Prescriptions: oxycodone-acetaminophen Yoav Ashraf sennosides-docusate sodium [Stimulant Laxative Plus] Yoav Ashraf Allergies Allergy/AdvReac Type Severity Reaction Status Date / Time No Known Allergies Allergy Verified 06/05/24 13:22 Discharge Plan Disposition Patient Disposition: Home, Self-Care Condition: Good Follow up Plan Follow up with: Huber North MD [Staff Physician] - 07/28/24 9:45 am Pretty Sin PA [Primary Care Provider] - 07/20/24 10:00 am Prescriptions/Medication Reconciliation: New sennosides-docusate sodium [Stimulant Laxative Plus] 8.6-50 mg Tablet 2 tab PO BID 10 Days Qty: 40 0RF oxycodone-acetaminophen 5-325 mg Tablet 1 - 2 tab PO Q4HP PRN (Reason: Severe Pain (7-10)) 3 Days Qty: 25 0RF Continued omeprazole 40 mg capsule,delayed release(DR/EC) 40 mg PO DAILY Patient Comments: TAKE 1 CAPSULE BY MOUTH ONCE DAILY IN THE MORNING 30 MINUTES BEFORE EATING methocarbamol 500 mg tablet 500 mg PO Q6H Qty: 20 0RF Problem Reconciliation Problems Reviewed?: Yes Patient Discharge Instructions ACTIVITY: Continue current activity DIET: continue same diet Patient Instructions: DI for Surgical Site Infection, DI for Cholecystitis, DI for Laparoscopic Cholecystectomy, Fat Restricted Diet, Gallbladder Diet Print Language: Peruvian Providers Primary Care Provider: Pretty Sin Admit Provider: Prashanth Dick Attending Provider: Prashanth Dick
--- NOTE | 2024-07-16 15:13 | P.PNANES_ITS ---
[facility] Anesthesia Record Part II Anesthesia Record Part II Discharge Time: 14:47 Destination: Surgical Day Care (OP Surgery) PACU nurse assessment reviewed?: Yes Patient Condition:: Good Anesthesia Complications:: None Swallowing reflex intact?: Yes Airway Patency: Patent Cyanosis?: No Blood Pressure: 168/89 SaO2: 95 Respiratory Rate: 16 Pulse Rate: 91 Temperature: 98.2 F Mental Status: Alert & Oriented Pain level:: 0 Nausea and/or vomitting:: None Intake, IV Amount: 0 Hydration: Adequate
[2024-07-16 15:14] VITALS: BP 168/89; PULSE 91; RESP 16; TEMP 36.8; O2SAT 95
--- NOTE | 2024-07-17 11:44 | SW/DCPLANNER ---
Spoke with patient on the phone. Patient stated that he is doing well just a little sore. Patient stated that he was able to sheepskin pickler his new medicine from [facility] on the day of his discharge. Patient stated that he is aware of his upcoming appointments and that he is going to call and reschedule his upcoming appointment with his primary care provider due to having to go into his work to discuss light duties. Patient stated that he has no concerns or questions at this time. Ethel Fregoso
== END 2024-07-16 14:58 | disposition home or self-care (01) ==
LOC: ER 02:28 → 2ND 03:36
PROVIDERS: Internal Medicine Adolescent Medicine; Nurse Practitioner Family; Surgery; Admitting Provider Student in an Organized Health Care Education/Training Program; Emergency Provider Emergency Medicine; PCP Student in an Organized Health Care Education/Training Program; Visit Provider Student in an Organized Health Care Education/Training Program
PROC: 0FT44ZZ Resection of Gallbladder, Percutaneous Endoscopic Approach (ICD-10-PCS; CPT 47562; principal; 2024-07-14 12:00)
DX: K80.00 Calculus of gallbladder with acute cholecystitis without obstruction (principal); G58.8 Other specified mononeuropathies; K21.9 Gastro-esophageal reflux disease without esophagitis; K58.9 Irritable bowel syndrome, unspecified; R93.89 Abnormal findings on diagnostic imaging of other specified body structures; K46.9 Unspecified abdominal hernia without obstruction or gangrene; F17.210 Nicotine dependence, cigarettes, uncomplicated; Z79.899 Other long term (current) drug therapy
CPT/HCPCS: 47562; 36415; 71046; 76705; 80053; 82803; 83605; 83690; 83735; 84484; 85007; 85025; 86803; 87389; 93005; 99285; J3490; G0378; J1100; J1171; J1650; J1885; J2060; J2250; J2270; J2405; J2543; J2550; J2919; J3010

== ENCOUNTER 2024-07-20 13:40 | Outpatient (CLI) | payer BC, SELFPAY ==
[2024-07-20 18:16] LABS: Basophils % 0.3 % (0.1-2.0); Eosinophils # 0.1 K/mm3 (0.0-0.4); Eosinophils % 0.5 % (0.1-12.0); Hematocrit 44.2 % (42.0-52.0); Hemoglobin 13.7 g/dL (14.1-18.0); Lymphocytes # 1.7 K/mm3 (0.7-4.5); Lymphocytes % 14.1 % (10-50); Mean Corpuscular Hemoglobin 23.7 pg (27.0-31.2); Mean Corpuscular Volume 76.5 fl (80-94); Mean Platelet Volume 11.1 fl (7.4-10.4); Monocytes # 0.9 K/mm3 (0.1-1.0); Monocytes % 7.6 % (1.7-9.3); Neutrophils % 76.7 % (37.0-80.0); Platelet Count 260 K/mm3 (142-424); Red Blood Count 5.78 M/mm3 (4.60-6.20); Red Cell Distribution Width 17.9 % (11.5-17.5); White Blood Count 11.8 K/mm3 (4.8-10.8)
[2024-07-20 19:12] LABS: Albumin Level 4.4 g/dl (3.5-5.0); Chloride 98 mmol/L (98-107); Potassium 4.5 mmoL/L (3.5-5.1); Sodium 138 mmol/L (136-145)
[2024-07-20 19:15] LABS: Alanine Aminotransferase 98 U/L (12-78); Albumin/Globulin Ratio 1.6 (1.1-1.8); Alkaline Phosphatase 64 U/L (38-126); Anion Gap 14.5 mEq/L (5-15); Aspartate Amino Transferase 33 U/L (17-59); Bilirubin,Total 0.8 mg/dl (0.2-1.3); Blood Urea Nitrogen 22 mg/dl (9-20); Carbon Dioxide 30 mmol/L (22.0-30.0); Estimated Glomerular Filt Rate 108 ml/min (>60); GFR (African American) 131 ML/MIN (>60); Globulin 2.7 g/dL (1.3-3.2); Total Protein,Serum 7.1 g/dl (6.3-8.2)
[2024-07-20 19:16] LABS: Calcium 9.2 mg/dl (8.4-10.2); Glucose 68 mg/dl (74-100)
== END 2024-07-20 23:59 | disposition home or self-care (01) ==
LOC: LAB.DROPOF 07-21 11:54
PROVIDERS: PCP Student in an Organized Health Care Education/Training Program; Visit Provider Student in an Organized Health Care Education/Training Program
DX: R00.0 Tachycardia, unspecified (principal); R74.8 Abnormal levels of other serum enzymes
CPT/HCPCS: 80053; 85025

== ENCOUNTER 2024-08-14 08:00 | Outpatient (RCR) | payer BC, SELFPAY ==
--- NOTE | 2024-08-03 10:17 | HMH.RHREAS ---
Rehab Reassessment Rehab OP Re-assessment Start: 08/03/24 08:00 Freq: Status: Active Protocol: Document 08/03/24 08:27 JACK (Rec: 08/03/24 10:17 JACK [id number]) E-signed By KIA PaytonDASH Activities Please rate your ability to do the following activities in the last week by selecting the number below the appropriate response. 1. Open a tight or new jar. Mild difficulty 2. Do heavy cigar bander (e.g., wash Mild difficulty ramirez, floors). 3. Carry a shopping bag or briefcase. Mild difficulty 4. Wash your back. Severe difficulty 5. Use a knife to cut food. No difficulty 6. Recreational activities in which you Moderate difficulty take some force or impact through your arm, shoulder, or hand (e.g., golf, hammering, tennis, etc.). 7. During the past week, to what extent Quite a bit has your arm, shoulder or hand problem interfered with your normal social activities with family, friends, neighbors or groups? 8. During the past week, were you Moderately limited limited in your work or other regular daily activites as a result of your arm, shoulder or hand problem? 9. Arm, shoulder or hand pain. Severe 10. Tingling (pins and needles) in your Moderate arm, shoulder or hand. 11. During the past week, how much Moderate difficulty difficulty have you had sleeping because of the pain in your arm, shoulder or hand? Quick DASH 31 Work Module (optional) The following questions ask about the impact of your arm, shoulder or hand problem on your ability to work (including homemaking if that is your main work role). Please indicate what your job/work is: Helm/Swat 1. Using your usual technique for your Moderate difficulty work? 2. Doing your usual work because of arm, Mild difficulty shoulder or hand pain? 3. Doing your work as well as you would Severe difficulty like? 4. Spending your usual amount of time Mild difficulty doing your work? Quick Dash Work Module Score 11 Sports/Performing Arts Module (optional) The following questions relate to the impact of your arm, shoulder or hand problem on playing your musical instrument or sport or both. If you play more than one sport or instrument (or play both), please answer with respect to the activity which is most important to you. Please indicate the sport or instrument weight lifting which is most important to you: 1. Using your usual technique for Severe difficulty playing your instrument or sport? 2. Playing your musical instrument or Severe difficulty sport because of arm, shoulder or hand pain? 3. Playing your musical instrument or Severe difficulty sport as well as you would like? 4. Spending your usual amount of time Severe difficulty practicing or playing your instrument or sport? Quick Dash Sports/Performing Art Score 16 Rehab Re-assessment Subjective Subjective Pt reports he was unable to attend PT for 3 weeks due to being ill and having his gallbladder removed. Pt reports his R shoulder feels 15% improved overall since since starting PT. Pt reports he saw an orthopedic doctor who initially recommended having a total shoulder replacement; however, after advanced imaging recommended to continue PT and reassess in August during his next follow- up visit. Pt states advanced imaging showed a tear of a RTC , tear of the labrum, bone spurs, decreased cartilage and a lot of scar tissue from previous surgeries. Pt reports he continues to have constant anterior & posterior R shoulder pain rated 2-3/10 pain and 8/10 pain at worst. Pt reports pain is worse at his end range elevation and with lifting weights especially overhead. Pt reports sense of shoulder instability with overhead activities as well. Objective Objective Notes Palpation: 2-3/4 TTP of AC joint, supra/infraspinatus, long head of bicep tendon R shoulder AROM (supine): flex - 130, abd- 100 (clunking noted), IR at 45- 80, ER at 45 - 40 RUE MMT: flex 4-/5, abd 3+/5, IR 4/5, ER 4-/5 Assessment Progress Assessment Progressing as Expected Assessment Notes Pt has attended 6 PT treatment sessions since his initial evaluation. Pt demonstrated improved R shoulder AROM, strength and QuickDASH score this date compared to the initial evaluation. The pt continues to report constant anterior & posterior R shoulder pain that is severe with elevation and lifting required for his occupation. Overall the pt would continue to benefit from skilled PT to further improve subjective report of pain, shoulder ROM, strength and functional activity tolerance to improve overall QOL. Patient goals met ST/2 Goals Not Met p! at worst, LTG Revised Goals n/a Plan Plan Continue initial POC Frequency of Therapy 2x/week Duration of therapy 4 more weeks Time and Billing Re-Eval Time 10 Re-Eval Billing Units 0 Charge for PT reassessment? No Charge for OT reassessment? No PHYSICIAN CERTIFICATION: I certify the specified therapy services for Ankit Rangel are required, authorized, and reviewed every 30 days.
== END 2024-08-14 23:59 | disposition home or self-care (01) ==
LOC: PT 08:00
PROVIDERS: PCP Student in an Organized Health Care Education/Training Program; Visit Provider Student in an Organized Health Care Education/Training Program
DX: M25.511 Pain in right shoulder (principal); G89.29 Other chronic pain
CPT/HCPCS: 20561; 97014; 97016; 97110; 97140; 97530; G0283

== ENCOUNTER 2024-08-14 09:00 | Outpatient (RCR) | payer OTHER, SELFPAY | END 2024-08-14 23:59 | disposition home or self-care (01) | LOC: PT 09:00 | PROVIDERS: Visit Provider Physician Assistant | DX: M51.360 Other intervertebral disc degeneration, lumbar region with discogenic back pain only (principal) | CPT/HCPCS: 20561; 97010; 97014; 97110; G0283 ==

== ENCOUNTER 2024-09-21 08:00 | Outpatient (RCR) | payer BC, SELFPAY | END 2024-09-21 23:59 | disposition home or self-care (01) | LOC: PT 08:00 | PROVIDERS: PCP Student in an Organized Health Care Education/Training Program; Visit Provider Student in an Organized Health Care Education/Training Program | DX: M25.511 Pain in right shoulder (principal); G89.29 Other chronic pain | CPT/HCPCS: 97014; 97016; 97110; 97140; G0283 ==

== ENCOUNTER 2024-09-21 09:00 | Outpatient (RCR) | payer OTHER, SELFPAY | END 2024-09-21 23:59 | disposition home or self-care (01) | LOC: PT 09:00 | PROVIDERS: Visit Provider Physician Assistant | DX: M51.360 Other intervertebral disc degeneration, lumbar region with discogenic back pain only (principal) | CPT/HCPCS: 97014; 97110; 97140; G0283 ==

== ENCOUNTER 2024-10-14 08:00 | Outpatient (RCR) | payer BC, SELFPAY | END 2024-10-14 23:59 | disposition home or self-care (01) | LOC: PT 08:00 | PROVIDERS: PCP Student in an Organized Health Care Education/Training Program; Visit Provider Student in an Organized Health Care Education/Training Program | DX: M25.511 Pain in right shoulder (principal); G89.29 Other chronic pain | CPT/HCPCS: 97014; 97016; 97110; 97140; 97530; G0283 ==

== ENCOUNTER 2024-10-20 17:00 | Outpatient (RCR) | payer OTHER, SELFPAY | END 2024-10-20 23:59 | disposition home or self-care (01) | LOC: PT 17:00 | PROVIDERS: Visit Provider Physician Assistant | DX: M51.360 Other intervertebral disc degeneration, lumbar region with discogenic back pain only (principal); M51.379 Other intervertebral disc degeneration, lumbosacral region without mention of lumbar back pain or lower extremity pain | CPT/HCPCS: 20560; 97014; 97110; 97140; G0283 ==

== ENCOUNTER 2024-11-05 09:00 | Outpatient (RCR) | payer OTHER, SELFPAY | END 2024-11-05 23:59 | disposition home or self-care (01) | LOC: PT 09:00 | PROVIDERS: Visit Provider Physician Assistant | DX: M51.379 Other intervertebral disc degeneration, lumbosacral region without mention of lumbar back pain or lower extremity pain (principal) | CPT/HCPCS: 20560; 97014; 97110; 97140; G0283 ==

== ENCOUNTER 2024-11-11 08:00 | Outpatient (RCR) | payer BC, SELFPAY | END 2024-11-11 23:59 | disposition home or self-care (01) | LOC: PT 08:00 | PROVIDERS: Visit Provider Orthopaedic Surgery | DX: S43.431A Superior glenoid labrum lesion of right shoulder, initial encounter (principal); X58.XXXA Exposure to other specified factors, initial encounter | CPT/HCPCS: 20560; 97014; 97110; 97140; 97163; 97530; G0283 ==

== ENCOUNTER 2024-12-07 08:00 | Outpatient (RCR) | payer BC, SELFPAY | END 2024-12-07 23:59 | disposition home or self-care (01) | LOC: PT 08:00 | PROVIDERS: Visit Provider Orthopaedic Surgery | DX: S43.431A Superior glenoid labrum lesion of right shoulder, initial encounter (principal) | CPT/HCPCS: 20560; 97014; 97016; 97110; 97140; 97530; G0283 ==

== ENCOUNTER 2024-12-07 09:26 | Outpatient (CLI) | payer BC, SELFPAY ==
--- OUTSIDE RECORDS SUMMARY | 2024-10-14 10:30 | XMS_ITS | Encounter Summary ---
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 Enrico Smith MD [address] [address] [address] Phone: tel: fax: Referral ID Status Reason Start Date Expiration Date Visits Requested Visits Authorized [id number] Authorized Consult and Treat 10/14/2024 04/15/2026 1 1 * Other Medical (Routine) - Pending Review Specialty Diagnoses / Procedures Referred By Contac t Referred To Contact Diagnoses Degenerative superior labral lztuifpu-st-xkuxjdtpj (SLAP) tear of right shoulder Procedures Injection - Large Joint: L subacromial bursa Enrico Smith MD [address] [address] Phone: tel: fax: Referral ID Status Reason Start Date Expiration Date V isits Requested Visits Authorized [id number] Pending Review 10/14/2024 04/15/2026 1 1 Reason for Visit * Reason Comments Follow-up Injections Encounter Details Date Type Department Care Team (Dillan Contact Info) Description 10/14/2024 10:30 AM EDT Office Visit [facility] Orthopaedic Surgery & Sports Medicine [address] , [address] [place] [address] Enrico Smith MD [address] [place] [address] Degenerative superior labral pazhbync-nx-woybldxn r (SLAP) tear of right shoulder (Primary Dx) Social History Tobacco Use Types Packs/Day Years Used Date Smoking Tobacco: Never Smokeless Tobacco: Never Tobacco Cessation:Counseling Given: Not Answered PHQ-2 Answer Date Recorded Patient Health Questionnaire-2 Score 0 07/06/2024 Sex and Gender Information Value Date Recorded Sex Assigned at Not on file Legal Sex Male 11:11 AM EDT Gender Identity Not on file Sexual Orientation Not on file documented as of this encounter Last Filed Vital Signs Vital Sign Reading Time Taken Comments Blood Pressure 132/82 10/14/2024 10:11 AM EDT Pulse 72 10/14/2024 10:11 AM EDT Temperature - - Respiratory Rate - - Oxygen Saturation 100% 10/14/2024 10:11 AM EDT Inhaled Oxygen Concentration - - Weight 101 kg (223 lb) 10/14/2024 10:11 AM EDT Height 182.9 cm (6') 10/14/2024 10:11 AM EDT Body Mass Index 30.24 10/14/2024 10:11 AM EDT documented in this encounter Miscellaneous Notes * Progress Notes - Jesus Pepe MD - 10/14/2024 10:30 AM EDTAssociated Order(s): Injection - Large Joint: L subacromial bursa Post-Procedure Diagnose(s): Degenerative superior labral wzpmrrnv-ob-wdhuplhmc (SLAP) tear of rightshoulder Sports Medicine Note NAME: Ankit Rangel : 1985 DATE: 10/14/2024 CHIEF COMPLAINT: Right shoulder pain HPI: Ankit Rangel is a 39 y.o. male presents for follow-up regarding right shoulder pain. Patient was last seen in June at that time we gave the patient a right subacromial corticosteroid injection the patient reports that he had significant relief from this injection. We will also give the patienta prescription to physical therapy which he has been doing 2 to 3 times a week and reports this is going well. The patient reports he has been out of physical therapy visits and would like another prescription for physical therapy. The patient not like to take regular anti-inflammatories but he will occasionally take Tylenol. He has a previous history of a right labral repair with biceps tenodesis while in the [employer] in 2017.He was had a revision surgery in 2019. He has continued to have right shoulder pain since then. 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 He has upcoming physical fitness test for the [employer] team. I have reviewed the past medical history, surgical history, family history, social history as documented in the chart. PHYSICAL EXAM: Vital signs: Visit Vitals BP 132/82 Pulse 72 Ht 1.829 m (6') Wt 101 kg (223 lb) SpO2 100% BMI 30.24 kg/m?? Smoking Status Never BSA 2.27 m?? Constitutional: Well developed. Well nourished. Psychologic: Mood is appropriate. Appropriate affect. Head and Face: Normocephalic. No obvious deformities. External Ears Normal, no lesions or masses, grossly normal hearing. Eyes: Extraocular movements intact Pulmonary: Unlabored, normal effort. Cardiac: well perfused, extremities pink. Regular rate. Abdomen: Soft, nontender Skin: No rashes on exposed skin surface. Neuro: No focal neuro deficit, normal coordination, normal muscle tone Musculoskeletal: Right Shoulder TTP about anterior shoulder, Posterior shoulder ROM: FF - 160, lateral abduction 170 ER 35, IR to belly button Rotator Cuff 4+ Supra, 4+ Infra, 5 Subscap Special Tests: Hawkin's Test Positive Anthony's Positive External Rotation Weakness Positive Lift Off Test Negative Bear Hug Negative Speed's Negative Yerguson's Negative [place]'s Negative Cross Body Abduction Negative Distally Neurovascularly Intact IMAGING: No new imaging. Previous MRI shoulder Left: no significant rotator cuff pathology. Previous XR Shoulder Left: Does show some significant arthritic changes to the glenohumeral joint and post surgical changes from prior labral surgery and suture anchor in proximal humerus, likely from biceps tenodesis ASSESSMENT/ PLAN: Ankit Rangel is a 39 y.o. male presents for follow-up regarding chronic, persistent right shoulder pain dysfunction limited range of motion in the setting of a remote right labral repair with revision in 2017 and 2019. Patient had significant improvement of his symptomatology for around 2 and half months, around 80% magnitude with his last right subacromial corticosteroid injection. Therefore we will repeat a another corticosteroid injection today. We are also going to prescribe the pt diclofenac to take as needed. 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 RTC in 3months for repeat clinical evaluation, no XR needed. I discussed risks and benefits of the injection which include but are not limited to: bleeding, infection, stiffness, and continued pain. Informed consent was obtained. The patient agreed to proceed with the injection. The injection was tolerated well without complication. See procedure note. Injection - Large Joint: L subacromial bursa Indications: pain Details: 22 G needle, posterior approach Medications: 20 mg bupivacaine 0.5 %; 40 mg lidocaine 1 %; 40 mg Kenalog-40 40 MG/ML Outcome: tolerated well, no immediate complications Procedure, treatment alternatives, risks and benefits explained, specific risks discussed (Specificrisks included flare reaction, increased pain, increased stiffness, injury to surrounding tissues, increased risk of infection, and risk of elevated glucose level.). Consent was given by the patient.Immediately prior to procedure a time out was called to verify the correct patient, procedure, equipment, marketing support manager and site/side marked as required. Patient was prepped and draped in the usual sterile fashion. Electronically Signed by: Jesus Pepe MD - 10/14/2024 - 10:50 AM Cosigned by Enrico Smith MD at 10/14/2024 12:17 PM EDT Associated attestation - Enrico Smith MD - 10/14/2024 12:17 PM EDT I saw and evaluated the patient with the resident/fellow. I discussed the case with the resident/fellow and agree with the findings and plan as documented. I was present for the entirety of the procedure(s). Patient returns for management and discussion of RTB tenditis, post capsule tightment, ac arthritis. Long discussion about options, doing better with PT, posterior capsule is much better in terms of passive motion. Gave him options of treatment moving forward, CSI versus EATON versus PRP, also discussed excatly what to do about posterior capsule stretching and scapular strength stuff. After lenghty discussion he elected to proceed with CSI shoulder injecction. He is happy with our plan and made a plan for his SWAT exam in 2 months. documented in this encounter Plan of Treatment Scheduled Referrals Name Type Priority Associated Diagnoses Order Schedule Physical Therapy (outgoing) Outpatient Referral Routine Degenerative superior labral hdryscep-vf-lytpoln or (SLAP) tear of right shoulder 1 Occurrences starting 10/14/2024 until 04/15/2026 documented as of this encounter Procedures Procedure Name Priority Date/Time Associated Diagnosis Comments NM ARTHROCENTESIS ASPIR&/INJ MAJOR JT/BURSA W/O US Routine 10/14/2024 10:30 AM EDT Degenerative superior labral psdkdgiv-fb-hzxehq ior (SLAP) tear of right shoulder documented in this encounter Results * NM ARTHROCENTESIS ASPIR&/INJ MAJOR JT/BURSA W/O US (10/14/2024 10:30 AM EDT) Narrative Enrico Smith MD - 10/14/2024 10:30 AM EDT Enrico Smith MD 10/14/2024 12:17 PM Injection - Large Joint: L subacromial bursa Indications: pain Details: 22 G needle, posterior approach Medications: 20 mg bupivacaine 0.5 %; 40 mg lidocaine 1 %; 40 mg Kenalog-40 40 MG/ML Outcome: tolerated well, no immediate complications Procedure, treatment alternatives, risks and benefits explained, specific risks discussed (Specific risks included flare reaction, increased pain, increased stiffness, injury to surrounding tissues, increased risk of infection, and risk of elevated glucose level.). Consent was given by the patient. Immediately prior to procedure a time out was called to verify the correct patient, procedure, equipment, marketing support manager and site/side marked as required. Patient was prepped and draped in the usual sterile fashion. us Enrico Smith MD IN CLINIC/BEDSIDE ORDERABLES Final Result documented in this encounter Visit Diagnoses Diagnosis Degenerative superior labral zoaipkse-pp-numumtpek (SLAP) tear of right shoulder- Primary documented in this encounter Administered Medications Inactive Administered Medications - up to 3 most recent administrations Medication Order MAR Action Action Date Dose Rate Site bupivacaine (Marcaine) 0.5 % injection 20 mg 20 mg, Injection, Once PRN Procedure, 1 dose, Starting on Sat10/14/24 at 1030, Until Sat10/14/24 at 1030, RoutineIndications:Degenerative superior labral ukwhvtte-od-fxeelhruv (SLAP) tear of right shoulder Given 10/14/2024 10:30 AM EDT 20 mg lidocaine (Xylocaine) 1 % injection 40 mg 40 mg, Intra-articular, Once PRN Procedure, 1 dose, Starting on Sat10/14/24 at 1030, Until Sat10/14/24 at 1030, RoutineIndications:Degenerative superior labral umcpacza-fh-ihnkbouir (SLAP) tear of right shoulder Given 10/14/2024 10:30 AM EDT 40 mg triamcinolone acetonide (Kenalog-40) injection 40 mg 40 mg, Intra-articular, Once PRN Procedure, 1 dose, Starting on Sat10/14/24 at 1030, Until Sat10/14/24 at 1030, RoutineIndications:Degenerative superior labral vynhbwvp-vk-qtduiwzlz (SLAP) tear of right shoulder Given 10/14/2024 10:30 AM EDT 40 mg documented in this encounter Additional Health Concerns Assessment Noted Time A fall risk assessment has been complete d for the patient 10/14/2024 10:12 AM EDT A Body Mass Index follow-up plan has been documented for the patient 10/14/2024 12:17 PM EDT documented as of this encounter Care Teams Remediation Project Engineer Relationship Specialty Start Date End Date Pretty Sin PA [address] [place] [address] PCP - General 06/25/24 documented as of this encounter
--- NOTE | 2024-12-07 09:28 | XR_ITS ---
FINAL REPORT CLINICAL HISTORY: Neck pain, UE numbness COMPARISON: None FINDINGS: Three views of the cervical spine were obtained. There is no fracture present. There is no malalignment. The vertebrae are normal in height. There are no significant degenerative changes. IMPRESSION: No acute process. Reviewed, Interpreted and Dictated by Tr Narayan MD Transcribed by Christine Lynch Authenticated and [facility]
--- OUTSIDE RECORDS SUMMARY | 2024-12-07 09:29 | XMS_ITS | Clinical Summary ---
Author Organization [facility] Address [address] [place] [address] Care Team Providers Care Student Activities Director Name Role Phone Pretty Sin Primary Care Provider [phone] Allergies No known active allergies Medications omeprazole (PriLOSEC) [address] capsule 1 capsule (40 mg). 4 Active testosterone cypionate (Depo-Testoste elena) 200 MG/ML injection Inject 1 mL (200 mg) into the muscle every 14 (fourteen) days. Three times a week Active cyclobenzaprin e (Flexeril) 10 MG tablet Take 1 tablet (10 mg) by mouth every 12 (twelve) hours. 4 Active sennosides (Ex-Lax) 15 mg chocolate chewable tablet every night. Active methylPREDNISo lone (Medrol Dospak) 4 MG tablets Follow schedule on package instructions 21 tablet 5 Active diclofenac (Voltaren) 75 MG EC tablet Take 1 tablet by mouth 2 (two) times a day. Do not crush, chew, or split. 60 tablet 5 11/14/19 25 Active Problems No known active problems Encounters Date Type Department Care Team Description 10/14/2024 10:30 AM EDT Office Visit [facility] Orthopaedic Surgery & Sports Medicine [facility], [address] [place] [address] Enrico Smith MD Degenerative superior labral oawohiob-jj-pwyogpobu (SLAP) tear of right shoulder (Primary Dx) 10/14/2024 Travel from Last 3 Months Social History Tobacco Use Types Packs/Day Years Used Date Smoking Tobacco: Never Smokeless Tobacco: Never Tobacco Cessation:Counseling Given: Not Answered PHQ-2 Answer Date Recorded Patient Health Questionnaire-2 Score 0 07/06/2024 Sex and Gender Information Value Date Recorded Sex Assigned at Not on file Legal Sex Male 11:11 AM EDT Gender Identity Not on file Sexual Orientation Not on file Last Filed Vital Signs Vital Sign Reading [...] Mass Index 30.24 10/14/2024 10:11 AM EDT Plan of Treatment Health Maintenance Due Date Last Done Comments [facility]-HIV Screening 1985 [facility]-Hepatitis C Screening 1985 [facility]-Infant/Child/Adol SDOH Screenings 1985 [facility]-Varicella Vaccines (1 of 2 - 13+ 2-dose series) 1999 HPV Vaccines (1 - Male 3-dose series) 2001 [facility]- SDOH Screenings 2004 [facility]-Adult SDOH Screenings 2004 [facility]-Hepatitis B Vaccines (1 of 3 - 19+ 3-dose series) 2005 [facility]-Pneumococcal Vaccine: Pediatrics (0 to 5 Years) and At-Risk Patients (6 to 49 Years) (1 of 2 - PCV) 2005 [facility]-IPV Vaccines (2 of 3 - Adult catch-up series) 11/29/2016 11/01/2016 [id number] Vaccine ( - season) 2024 [facility]-Influenza Vaccine (Season Ended) 2025 05/17/2021, 04/07/2019, 08/10/2018, Additional history exists [facility]-Depression Screening 07/06/2025 07/06/2024 [facility]-DTaP,Tdap,and Td Vaccines (2 - Td or Tdap) 11/01/2026 11/01/2016 [facility]-Zoster Vaccines (1 of 2) 2036 [facility]-Hepatitis A Vaccines Aged Out 07/09/2018, 10/22 No longer eligible based on patient's age to complete this topic [facility]-Obesity Intervention Completed 025, 07/06/2024, 07/01/2024 [facility]-HIB Vaccines Aged Out No longer e ligible based on patient's age to complete this topic [facility]-Rotavirus Vaccines Aged Out No lo nger eligible based on patient's age to complete this topic Procedures Procedure Name Priority Date/Time Associated Diagnosis Comments MD ARTHROCENTESIS ASPIR&/INJ MAJOR JT/BURSA W/O US Routine 10/14/2024 10:30 AM EDT Degenerative superior labral stcapsiz-wa-fyqtwp ior (SLAP) tear of right shoulder from Last 3 Months Results * MD ARTHROCENTESIS ASPIR&/INJ MAJOR JT/BURSA [...] to verify the correct patient, procedure, equipment, accounting support specialist and site/side marked as required. Patient was prepped and draped in the usual sterile fashion. us Enrico Smith MD IN CLINIC/BEDSIDE ORDERABLES Final Result from Last 3 Months Insurance [employer] Care Teams Student Activities Director Relationship Specialty Start Date End Date Pretty Sin PA [address] [place] [address] PCP - General 06/25/24
--- OUTSIDE RECORDS SUMMARY | 2024-12-07 09:29 | XMS_ITS | Encounter Summary ---
Author Organization [facility] Address [address] [id number] Care Team Providers Care Student Affairs Dean Name Role Phone Pretty Sin Primary Care Provider [phone] Encounter Details Date Type Department Care Team (Latest Contact Info) Description 10/14/2024 Travel Social History Tobacco Use Types Packs/Day Years Used Date Smoking Tobacco: Never Smokeless Tobacco: Never PHQ-2 Answer Date Recorded Patient Health Questionnaire-2 Score 0 07/06/2024 Sex and Gender Information Value Date Recorded Sex Assigned at Not on file Legal Sex Male 11:11 AM EDT Gender Identity Not on file Sexual Orientation Not on file documented as of this encounter Plan of Treatment Not on file documented as of this encounter Visit Diagnoses Not on filedocumented in this encounter Additional Health Concerns Assessment Noted Time A fall risk assessment has been complete d for the patient 10/14/2024 10:12 AM EDT A Body Mass Index follow-up plan has been documented for the patient 10/14/2024 12:17 PM EDT documented as of this encounter Care Teams Student Affairs Dean Relationship Specialty Start Date End Date Pretty Sin PA [address] [place] [address] PCP - General 06/25/24 documented as of this encounter
--- OUTSIDE RECORDS SUMMARY | 2024-12-07 09:29 | XMS_ITS | Patient Health Record ---
Author Organization [facility] Address [address] [place] [address] Care Team Providers Care Bleach Chlorinator Name Role Phone Fercho Myers Unavailable [phone] Connor MALIK, Grey [facility]available 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 Problem History of disease caused by Severe acute respiratory syndrome coronavirus 2 (situation) (323673476955339688 ) Personal History of COVID-19 (Z86.16) Active confirmed Problem 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 confirmed Problem Postprocedural states (621922826) S/P thoracentesis (Z98.890) Active confirmed Problem 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 Plan Of Treatment No Information Insurance Providers Payer Name Payer Address Payer Phone Subscriber Number Group Number Insured Name Patient Relationship to Insured Coverage Start Date Coverage End Date [facility] [address] [place] [address] [id number] [facility]# [id number] Ankit Rangel Self - patient is the insured Medical (General) History Surgical History Surgery Date(Month/Year) umbilical hernia repair 2 shoulder surgeries with biceps reconst ruction right Left thoracotomy with left diaphragm pli cation, 12/12/2020 Left thoracotomy, decorticat ion, pleurectomy, wedge resection (upper and lower), lingulectomy for BPF, 02/14/2021
== END 2024-12-07 23:59 | disposition home or self-care (01) ==
LOC: RAD 09:26
PROVIDERS: PCP Internal Medicine; Visit Provider Internal Medicine
DX: M54.2 Cervicalgia (principal); R20.0 Anesthesia of skin
CPT/HCPCS: 72040

== ENCOUNTER 2024-12-10 07:47 | Outpatient (CLI) | payer BC, SELFPAY ==
--- OUTSIDE RECORDS SUMMARY | 2024-10-14 10:30 | XMS_ITS | Encounter Summary ---
Author Organization [facility] Address [address] [place] [address] Care Team Providers Care Gasoline Engine Inspector Name Role Phone Pretty Sin Primary Care Provider [phone] Reason for Referral * Consultation (Routine) - Authorized Specialty Diagnoses / Procedures Referred By Александрac t Referred To Contact Physical Therapy Diagnoses Degenerative superior labral kybfhwhl-cj-udkaxmfvm (SLAP) tear of right shoulder Enrico Smith MD [address] [address] [address] Phone: tel: fax: Referral ID Status Reason Start Date Expiration Date Visits Requested Visits Authorized [id number] Authorized Consult and Treat 10/14/2024 04/15/2026 1 1 * Other Medical (Routine) - Pending Review Specialty Diagnoses / Procedures Referred By Contac t Referred To Contact Diagnoses Degenerative superior labral dcwuruwb-gv-preffnekt (SLAP) tear of right shoulder Procedures Injection - Large Joint: L subacromial bursa Enrico Smith MD [address] [address] Phone: tel: fax: Referral ID Status Reason Start Date Expiration Date V isits Requested Visits Authorized [id number] Pending Review 10/14/2024 04/15/2026 1 1 Reason for Visit * Reason Comments Follow-up Injections Encounter Details Date Type Department Care Team (Dillan Contact Info) Description 10/14/2024 10:30 AM EDT Office Visit [facility] Orthopaedic Surgery & Sports Medicine [address] , [address] [place] [address] Enrico Smith MD [address] [place] [address] Degenerative superior labral avuonplz-rd-gqlporkh r (SLAP) tear of right shoulder (Primary [...] subacromial bursa Post-Procedure Diagnose(s): Degenerative superior labral cxhdkvqu-ek-zkolbwppj (SLAP) tear of rightshoulder Sports Medicine Note [...] since then. 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 He has upcoming physical fitness test for the [employer] team. I have reviewed the past medical [...] Bear Hug Negative Speed's Negative Yerguson's Negative [place]'s Negative Cross Body Abduction Negative Distally Neurovascularly [...] to verify the correct patient, procedure, equipment, direct support worker and site/side marked as required. Patient was [...] (outgoing) Outpatient Referral Routine Degenerative superior labral eqwduhtt-py-ottvbsm or (SLAP) tear of right shoulder 1 Occurrences starting 10/14/2024 until 04/15/2026 documented as of this encounter Procedures Procedure Name Priority Date/Time Associated Diagnosis Comments MD ARTHROCENTESIS ASPIR&/INJ MAJOR JT/BURSA W/O US Routine 10/14/2024 10:30 AM EDT Degenerative superior labral qxzavbnl-bb-uuhdmy ior (SLAP) tear of right shoulder documented in this encounter Results * MD ARTHROCENTESIS ASPIR&/INJ MAJOR JT/BURSA W/O US (10/14/2024 [...] to verify the correct patient, procedure, equipment, direct support worker and site/side marked as required. Patient was prepped and draped in the usual sterile fashion. us Enrico Smith MD IN CLINIC/BEDSIDE ORDERABLES Final Result documented in this encounter Visit Diagnoses Diagnosis Degenerative superior labral zfkrxbgu-zz-sffmnsbql (SLAP) tear of right shoulder- Primary documented in this encounter Administered Medications Inactive Administered Medications - up to 3 most recent administrations Medication Order MAR Action Action Date Dose Rate Site bupivacaine (Marcaine) 0.5 % injection 20 mg 20 mg, Injection, Once PRN Procedure, 1 dose, Starting on Sat10/14/24 at 1030, Until Sat10/14/24 at 1030, RoutineIndications:Degenerative superior labral ebssoejv-vp-wfpiskjhk (SLAP) tear of right shoulder Given 10/14/2024 10:30 AM EDT 20 mg lidocaine (Xylocaine) 1 % injection 40 mg 40 mg, Intra-articular, Once PRN Procedure, 1 dose, Starting on Sat10/14/24 at 1030, Until Sat10/14/24 at 1030, RoutineIndications:Degenerative superior labral mawlgyeh-pg-rxuvpcdsj (SLAP) tear of right shoulder Given 10/14/2024 10:30 AM EDT 40 mg triamcinolone acetonide (Kenalog-40) injection 40 mg 40 mg, Intra-articular, Once PRN Procedure, 1 dose, Starting on Sat10/14/24 at 1030, Until Sat10/14/24 at 1030, RoutineIndications:Degenerative superior labral ckolzpyr-dg-oorhpwfye (SLAP) tear of right shoulder Given 10/14/2024 10:30 AM EDT 40 mg documented in this encounter Additional Health Concerns Assessment Noted Time A fall risk assessment has been complete d for the patient 10/14/2024 10:12 AM EDT A Body Mass Index follow-up plan has been documented for the patient 10/14/2024 12:17 PM EDT documented as of this encounter Care Teams Gasoline Engine Inspector Relationship Specialty Start Date End Date Pretty Sin PA [address] [place] [address] PCP - General 06/25/24 documented as of this encounter
--- NOTE | 2024-12-10 07:45 | MR_ITS ---
FINAL REPORT CLINICAL HISTORY: Cervical spine pain, numbness and tingling in bilateral arms COMPARISON: None FINDINGS: Multi planar MR imaging was obtained of the cervical spine with and without contrast. There is abnormal decreased signal throughout the cervical discs. The vertebrae are of normal height. There is no malalignment. The cervical cord demonstrates normal signal and configuration. C2-C3: There is no evidence of significant disc bulge or protrusion. There is no significant facet hypertrophy. C3-C4: There is no evidence of significant disc bulge or protrusion. There is no significant facet hypertrophy. C4-C5: Minimal endplate hypertrophy to the left. Minimal left neural foraminal narrowing. C5-C6: Minimal endplate hypertrophy to the right. Mild right neural foraminal narrowing. C6-C7: There is no evidence of significant disc bulge or protrusion. There is no significant facet hypertrophy. C7-T1: There is no evidence of significant disc bulge or protrusion. There is no significant facet hypertrophy. There is no abnormal contrast enhancement. IMPRESSION: Minimal neural foraminal compromise on the left at C4-5 and on the right at C5-6. Reviewed, Interpreted and Dictated by Tr Narayan MD Transcribed by Nicole Vitale Authenticated and [facility]
--- OUTSIDE RECORDS SUMMARY | 2024-12-10 07:50 | XMS_ITS | Encounter Summary ---
Author Organization [facility] Address [address] [id number] Care Team Providers Care Lower School Music Teacher Name Role Phone Pretty Sin Primary Care Provider [phone] Encounter Details Date Type Department Care Team [...] documented as of this encounter Care Teams Lower School Music Teacher Relationship Specialty Start Date End Date Pretty Sin PA [address] [place] [address] PCP - General 06/25/24 documented as of this encounter
--- OUTSIDE RECORDS SUMMARY | 2024-12-10 07:50 | XMS_ITS | Clinical Summary ---
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 Patient was prepped and draped in the usual sterile fashion. us Enrico Smith MD IN CLINIC/BEDSIDE ORDERABLES Final Result from Last 3 Months Insurance [employer] Care Teams Reforestation Worker Relationship Specialty Start Date End Date Pretty Sin PA [address] [place] [address] PCP - General 06/25/24
--- OUTSIDE RECORDS SUMMARY | 2024-12-10 07:51 | XMS_ITS | Patient Health Record ---
Author Organization [facility] Address [address] [place] [address] Care Team Providers Care Equipment Cleaner And Tester Name Role Phone Fercho Myers Unavailable [phone] Connor MALIK, Grey [facility] No Information Medications Medication SIG (Take, Route, Frequency, Duration) Notes Start Date End Date Status Flexeril *Reorder from Me dispan for eRx and Interaction Alerts* Active Lortab 5 *Reorder from Me dispan for eRx and Interaction Alerts* Active Problems Problem Type SNOMED Code ICD Code Onset Dates Problem Status W/U Status Risk Notes Problem 31896032 Diaphragmatic hernia without obstruction and without gangrene (K44.9) Active confirmed Problem Pleural effusion (89227483) Pleural effusion (J90) Active confirmed Problem 76069968 Paralysis, 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 Problem History of disease caused by Severe acute respiratory syndrome coronavirus 2 (situation) (420388873645093541 ) Personal History of COVID-19 (Z86.16) Active confirmed Problem 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 confirmed Problem Postprocedural states (627030014) S/P thoracentesis (Z98.890) Active confirmed Problem 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 Plan Of Treatment No Information Insurance Providers Payer Name Payer Address Payer Phone Subscriber Number Group Number Insured Name Patient Relationship to Insured Coverage Start Date Coverage End Date [facility] [address] [place] [phone] [id number] [facility]# [id number] Ankit Rangel Self - patient is the insured Medical (General) History Surgical History Surgery Date(Month/Year) umbilical hernia repair 2 shoulder surgeries with biceps reconst ruction right Left thoracotomy with left diaphragm pli cation, 12/12/2020 Left thoracotomy, decorticat ion, pleurectomy, wedge resection (upper and lower), lingulectomy for BPF, 02/14/2021
[2024-12-10] MEDS: GADOTERIDOL INJ 20ML SYRINGE 18 ML IV (08:39)
[2024-12-10] MEDS: SODIUM CHLORIDE 0.9% 10ML SYR (RAD ONLY) 10 ML IV (08:39)
== END 2024-12-10 23:59 | disposition home or self-care (01) ==
LOC: RAD 07:48
PROVIDERS: PCP Internal Medicine; Visit Provider Internal Medicine
DX: M99.71 Connective tissue and disc stenosis of intervertebral foramina of cervical region (principal)
CPT/HCPCS: 72156; A9576

== ENCOUNTER 2025-01-25 08:30 | Outpatient (CLI) | payer BC, SELFPAY ==
[2025-01-25 15:25] LABS: Coronavirus 19, PCR Not Detected (NotDetected); Influenza A, PCR Not Detected (NotDetected); Influenza B, PCR Not Detected (NotDetected)
--- OUTSIDE RECORDS SUMMARY | 2025-01-26 14:49 | XMS_ITS | Continuity of Care Document ---
Author Organization [facility]. If a dditional information is needed, contact Health Information Management at [phone] Address [address] [place] [address] Phone Care Team Providers Care Cleaning Team Member Name Role Phone Unavailable Unavailable Unavailable Unavailable Unavailable Unavailable Unavailable Unavailable Unavailable Unavailable Unavailable Unavailable Unavailable Unavailable Unavailable Unavailable Unavailable Unavailable Unavailable Unavailable Unavailable Unavailable Unavailable Unavailable Unavailable Unavailable Unavailable Unavailable Unavailable Unavailable Unavailable Unavailable Unavailable Unavailable Unavailable Unavailable Unavailable Unavailable Unavailable Unavailable Unavailable Unavailable Problems Empyema of pleura Onset:15-Feb-2021 Luciano Bell MD Chronic anemia Onset:15-Feb-2021 Luciano Bell MD Leukocytosis Onset:15-Feb-2021 Luciano Bell MD Status:Resolved Fever Onset:13-Feb-2021 Luciano Bell MD Status:Resolved Hypertensive disorder Onset:13-Feb-2021 Luciano Bell MD D-dimer above reference rang e Onset:13-Feb-2021 Luciano Bell MD Mediastinal shift Onset:13-Feb-2021 Luciano Bell MD HISTORY OF PARALYSIS OF DIAPHRAGM Onset:12-Feb-2021 Ashley Bell BIOMETRIC FINGERPRINTING TECHNICIAN Pleuritic pain Onset:12-Feb-2021 Ashley Bell BIOMETRIC FINGERPRINTING TECHNICIAN Loculated pleural effusion Onset:12-Feb-2021 Ashley Bell BIOMETRIC FINGERPRINTING TECHNICIAN Pneumonia Onset:12-Feb-2021 Ashley Bell BIOMETRIC FINGERPRINTING TECHNICIAN Sepsis Onset:12-Feb-2021 Ashley Bell BIOMETRIC FINGERPRINTING TECHNICIAN Leukocytosis Onset:14-Dec-2020 Connor Santiago MD Dextrocardia Onset:14-Dec-2020 Connor Santiago MD Pleural effusion Onset:14-Dec-2020 Connor Santiago MD Postoperative state Onset:14-Dec-2020 Carlos Alberto Mercer BIOMETRIC FINGERPRINTING TECHNICIAN Diaphragmatic eventration Onset:14-Dec-2020 Carlos Alberto Mercer NP Postoperative state Onset:14-Dec-2020 Carlos Alberto Mercer NP Body mass index 30+ - obesit y Onset:13-Dec-2020 Ranjith Steele MD Paralysis of diaphragm Onset:12-Dec-2020 Valerie Elder MD Elevated blood-pressure reading without diagnosis of hypertension Onset:12-Dec-2020 Valerie Elder MD Diaphragmatic hernia Onset:12-Dec-2020 Valerie Elder MD R06.02 Onset:15-Nov-2020 Comments:Onset Date: 20201110 Mental Status Cognitive function finding 12-Feb-2021 Cognitive function finding 12-Dec-2020 Functional Status Functional finding 12-Dec-2020 Allergies and Adverse Reactions No Known Drug Allergies(Jordon rgy) Onset: 12-Feb-2021 Reaction:NO FOOD,CONTRAST OR LATEX ALLERGY Medications ondansetron 4 MG Disintegrat ing Oral Tablet;4 MILLIGRAM PO Q6H PRN Start:22-Feb-2021 Comments:4 MG PO Q6H PRN As Needed for NAUSEA AND VOMITING oxyCODONE hydrochloride 10 M G Oral Tablet;10 MILLIGRAM PO Q6H PRN Start:22-Feb-2021 Comments:10 MG PO Q6H PRN As Needed for PAIN SCALE 4-6 (MODERATE) sennosides, RETIREMENT 8.6 MG Oral Tablet [Senokot];8.6 MILLIGRAM PO DAILY Start:22-Feb-2021 Comments:8.6 MG PO DAILY amoxicillin 875 MG / clavulanate 125 MG Oral Tablet;875 MILLIGRAM PO BID MEALS Start:22-Feb-2021 Comments:875 MG PO BID MEALS 1 ML glycopyrrolate 0.2 MG/M L Injection Quantity:1 Louis Beyer MD Start:14-Feb-2021 Status:Discontinued neostigmine methylsulfate 1 MG/ML Injectable Solution Quantity:1 Louis Beyer MD Start:14-Feb-2021 Status:Discontinued 1 ML HYDROmorphone hydrochloride 2 MG/ML Cartridge Quantity:1 Louis Beyer MD Start:14-Feb-2021 Status:Discontinued ketamine 10 MG/ML Injectable Solution Quantity:1 Louis Beyer MD Start:14-Feb-2021 Status:Discontinued midazolam 1 MG/ML Injectable Solution Quantity:1 Louis Beyer MD Start:14-Feb-2021 Status:Discontinued 72 HR scopolamine 0.0139 MG/ HR Transdermal System Quantity:1 Louis Beyer MD Start:14-Feb-2021 Status:Discontinued 20 ML propofol 10 MG/ML Injection;Provider Administration Instructions:IV TUBING MUST BE CHANGED EVERY 12 HOURS Quantity:1 Luciano Bell MD Start:14-Feb-2021 Status:Discontinued Comments:Provider Administration Instructions:IV TUBING MUST BE CHANGED EVERY 12 HOURS succinylcholine chloride 20 MG/ML Injectable Solution [Quelicin] Quantity:1 Luciano Bell MD Start:14-Feb-2021 Status:Discontinued 2 ML fentaNYL 0.05 MG/ML Injection Quantity:1 Luciano Bell MD Start:14-Feb-2021 Status:Discontinued 5 ML lidocaine hydrochloride 20 MG/ML Injection Quantity:1 Luciano Bell MD Start:14-Feb-2021 Status:Discontinued 1 ML phenylephrine hydrochloride 10 MG/ML Injection Quantity:1 Luciano Bell MD Start:14-Feb-2021 Status:Discontinued collagen hemostat Quantity:1 Luciano Bell MD Start:14-Feb-2021 Status:Discontinued heparin sodium, porcine 1000 UNT/ML Injectable Solution;Provider Administration Instructions:ANTICOAGUL ANT/THROMBOLYTICAVOID ANTICOAGULANT/THROMBOLYTIC DUPLICATIONS Quantity:1 Luciano Bell MD Start:14-Feb-2021 Status:Discontinued Comments:Provider Administration Instructions:ANTICOAGUL ANT/THROMBOLYTICAVOID ANTICOAGULANT/THROMBOLYTIC DUPLICATIONS 30 ML BUPivacaine hydrochlor quentin 2.5 MG/ML Injection Quantity:1 Luciano Bell MD Start:14-Feb-2021 Status:Discontinued 1 ML EPINEPHrine 1 MG/ML Injection Quantity:1 Luciano Bell MD Start:14-Feb-2021 Status:Discontinued ceFAZolin 1000 MG Injection Quantity:1 Luciano Bell MD Start:14-Feb-2021 Status:Discontinued 10 ML calcium chloride 100 MG/ML Prefilled Syringe Quantity:1 Luciano Bell MD Start:14-Feb-2021 Status:Discontinued thrombin, bovine 2000 UNT/ML Topical Solution [Thrombin-JMI] Quantity:1 Luciano Bell MD Start:14-Feb-2021 Status:Discontinued heparin sodium, porcine 1000 UNT/ML Injectable Solution;Provider Administration Instructions:LABEL WITH 28 DAY EXPIRATION WHEN OPENED Quantity:1 Luciano Bell MD Start:14-Feb-2021 Status:Discontinued Comments:Provider Administration Instructions:LABEL WITH 28 DAY EXPIRATION WHEN OPENED 30 ML BUPivacaine hydrochlor quentin 5 MG/ML Injection Quantity:1 Luciano Bell MD Start:14-Feb-2021 Status:Discontinued iopamidol;100 MILLILITER INTRAVEN. ONCE Quantity:1 Louis Beyer MD Start:13-Feb-2021 Status:Discontinued Comments:[id number] Administration Instructions:IV contrast: To be given by CT department acetaminophen 325 MG / oxyCODONE hydrochloride 10 MG Oral Tablet;1 TABLET PO Q6H PRN Start:16-Dec-2020 Comments:1 TAB PO Q6H PRN As Needed for POST-OP PAIN EXEMPT cyclobenzaprine hydrochlorid e 10 MG Oral Tablet;10 MILLIGRAM PO Q6H PRN Start:16-Dec-2020 Status:Discontinued Comments:10 MG PO Q6H PRN As Needed for MUSCLE SPASMS gabapentin 400 MG Oral Capsule;400 MILLIGRAM PO BID Start:16-Dec-2020 Comments:400 MG PO BID ascorbic acid 1000 MG Extend ed Release Oral Tablet;1000 MILLIGRAM PO DAILY Start:16-Dec-2020 Comments:1000 MG PO DAILY ondansetron 2 MG/ML Injectab le Solution [Zofran];Provider Administration Instructions:For Nausea. Give IV Push, undiluted over 2-5 min Quantity:1 Louis Beyer MD Start:12-Dec-2020 Status:Discontinued Comments:Provider Administration Instructions:For Nausea. Give IV Push, undiluted over 2-5 min water 1000 MG/ML Injectable Solution Quantity:1 Louis Beyer MD Start:12-Dec-2020 Status:Discontinued neostigmine methylsulfate 1 MG/ML Injectable Solution Quantity:1 Louis Beyer MD Start:12-Dec-2020 Status:Discontinued 1 ML glycopyrrolate 0.2 MG/M L Injection Quantity:1 Louis Beyer MD Start:12-Dec-2020 Status:Discontinued vecuronium bromide 1 MG/ML Injectable Solution Quantity:1 Louis Beyer MD Start:12-Dec-2020 Status:Discontinued 30 ML BUPivacaine hydrochlor quentin 2.5 MG/ML Injection Quantity:1 Louis Beyer MD Start:12-Dec-2020 Status:Discontinued 30 ML BUPivacaine hydrochlor quentin 5 MG/ML Injection Quantity:1 Louis Beyer MD Start:12-Dec-2020 Status:Discontinued ketamine 10 MG/ML Injectable Solution Quantity:1 Patrice Garrett MD Start:12-Dec-2020 Status:Discontinued 1 ML HYDROmorphone hydrochloride 2 MG/ML Cartridge Quantity:1 Patrice Garrett MD Start:12-Dec-2020 Status:Discontinued ceFAZolin 1000 MG Injection Quantity:1 Patrice Garrett MD Start:12-Dec-2020 Status:Discontinued 20 ML propofol 10 MG/ML Injection;Provider Administration Instructions:IV TUBING MUST BE CHANGED EVERY 12 HOURS Quantity:1 Patrice Garrett MD Start:12-Dec-2020 Status:Discontinued Comments:Provider Administration Instructions:IV TUBING MUST BE CHANGED EVERY 12 HOURS succinylcholine chloride 20 MG/ML Injectable Solution [Quelicin] Quantity:1 Patrice Garrett MD Start:12-Dec-2020 Status:Discontinued 5 ML lidocaine hydrochloride 20 MG/ML Injection Quantity:1 Patrice Garrett MD Start:12-Dec-2020 Status:Discontinued 2 ML fentaNYL 0.05 MG/ML Injection Quantity:1 Patrice Garrett MD Start:12-Dec-2020 Status:Discontinued midazolam 1 MG/ML Injectable Solution Quantity:1 Patrice Garrett MD Start:12-Dec-2020 Status:Discontinued 10 ML calcium chloride 100 MG/ML Prefilled Syringe Quantity:1 Patrice Garrett MD Start:12-Dec-2020 Status:Discontinued collagen hemostat Quantity:1 Patrice Garrett MD Start:12-Dec-2020 Status:Discontinued heparin sodium, porcine 1000 UNT/ML Injectable Solution;Provider Administration Instructions:ANTICOAGUL ANT/THROMBOLYTICAVOID ANTICOAGULANT/THROMBOLYTIC DUPLICATIONS Quantity:1 Patrice Garrett MD Start:12-Dec-2020 Status:Discontinued Comments:Provider Administration Instructions:ANTICOAGUL ANT/THROMBOLYTICAVOID ANTICOAGULANT/THROMBOLYTIC DUPLICATIONS heparin sodium, porcine 1000 UNT/ML Injectable Solution;Provider Administration Instructions:LABEL WITH 28 DAY EXPIRATION WHEN OPENED Quantity:1 Patrice Garrett MD Start:12-Dec-2020 Status:Discontinued Comments:Provider Administration Instructions:LABEL WITH 28 DAY EXPIRATION WHEN OPENED 30 ML BUPivacaine hydrochlor quentin 2.5 MG/ML Injection Quantity:1 Patrice Garrett MD Start:12-Dec-2020 Status:Discontinued 1 ML EPINEPHrine 1 MG/ML Injection Quantity:1 Patrice Garrett MD Start:12-Dec-2020 Status:Discontinued ceFAZolin 1000 MG Injection Quantity:1 Patrice Garrett MD Start:12-Dec-2020 Status:Discontinued thrombin, bovine 2000 UNT/ML Topical Solution [Thrombin-JMI] Quantity:1 Patrice Garrett MD Start:12-Dec-2020 Status:Discontinued 30 ML BUPivacaine hydrochlor quentin 5 MG/ML Injection Quantity:1 Patrice Garrett MD Start:12-Dec-2020 Status:Discontinued iopamidol;100 MILLILITER INTRAVEN. ONCE Quantity:1 Nikkie Stokes NP Start:10-Nov-2020 Status:Discontinued Comments:[id number] Administration Instructions:IV contrast: To be given by CT department Social History Smoking Status Never smoked tobacco Recorded: 12-Feb-2021 Never smoked tobacco Recorded: 12-Dec-2020 Encounters Ambulatory 13-Feb-2021 11:11 [facility]
--- OUTSIDE RECORDS SUMMARY | 2025-01-26 14:49 | XMS_ITS | Continuity of Care Document ---
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 It does not include entries that were removed or entered in error. Problem Status Onset Date Problem Type Date of Resolution Comments Source Pain in right shoulder Active 07/28/2018 Condition DoD Other disorders of lung Active 07/09/2018 Condition DoD Abnormal findings on diagnostic imaging of other parts of musculoskeletal system Active 12/10/2017 Condition Do D Encounter for disability determination Active Condition DoD Allergies, Adverse Reactions, Alerts Combined list of allergies from Department of Defense and Veterans Affairs facilities. It does not include entries that were removed or entered in error. Substance Category Reaction Severity Reaction type Status Date Reported Comments Source No Known Allergies Drug allergy (disorder) active 11/05/2016 Aris PONCE, [place] Immunizations Combined list of available immunizations from the Department of Defense and Veterans Affairs facilities. Immunization Series Date Given Administered By Site Reaction Lot Number CVX Code Drug Analytic Manager Status Comments Source INFLUENZA, INJECTABLE, QUADRIVALENT, PRESERVATIVE FREE 2020 150 complet ed [facility] influenza, injectable, quadrivalent, contains preservative 1 2019 [id number] 158 Seqirus (SEQ) complet ed influenza , injectabl e, quadrival ent, contains preservat alen DoD anthrax vaccine 2 2019 [id number] [employer] [place] (MIP) complet ed anthrax vaccine DoD Influenza, injectable, quadrivalent, preservative free 1 2018 [id number] 150 Seqirus (SEQ) complet ed Influenza , injectabl e, quadrival ent, preservat alen free DoD Influenza, injectable, quadrivalent, preservative free 1 2018 [id number] 150 Seqirus (SEQ) comple t ed Influenza , injectabl e, quadrival ent, preservat alen free DoD anthrax vaccine 1 2018 [id number] 24 [employer] [place] ([facility]) complet ed anthrax vaccine DoD hepatitis A vaccine, adult dosage 2 2018 [id number] 52 Smithine (SKB) complet ed hepatitis A vaccine, adult dosage DoD typhoid Vi capsular polysaccharid e vaccine 1 2018 [id number] Sanofi Pasteur (PMC) complet ed typhoid Vi capsular polysacch aride vaccine DoD Influenza, injectable, quadrivalent, preservative free 1 2016 [id number] 150 SmithKline (SKB) complet ed Influenza , injectabl e, quadrival ent, preservat alen free DoD measles, mumps and rubella virus vaccine 1 2016 UNK 03 Unknown (UNK) Not Given measles, mumps and rubella virus vaccine DoD varicella virus vaccine 1 2016 UNK 21 Unknown (UNK) Not Given varicella virus vaccine DoD hepatitis B vaccine, adult dosage 1 2016 UNK 43 Unknown (UNK) Not Given hepatitis B vaccine, adult dosage DoD hepatitis A vaccine, adult dosage 1 2016 [id number] 52 [place] (SKB) complet ed hepatitis A vaccine, adult dosage DoD Influenza, seasonal, injectable 1 2016 [id number] 141 Seqirus (SEQ) complet ed Influenza , seasonal, injectabl e DoD Adenovirus, type 4 and type 7, live, oral 1 2016 [id number] 143 Vasquez [facility] (R) complet ed Adenoviru s, type 4 and type 7, live, oral DoD poliovirus vaccine, inactivated 1 2016 [id number] 10 Sanofi Pasteur (PMC) complet ed polioviru s vaccine, inactivat ed DoD meningococcal polysaccharid e (groups A, C, Y and W-135) diphtheria toxoid conjugate vaccine (MCV4P) 1 2016 [id number] 114 Seqirus (SEQ) comple t ed meningoco ccal polysacch aride (groups A, C, Y and W-135) diphtheri a toxoid conjugate vaccine (MCV4P) DoD tetanus toxoid, reduced diphtheria toxoid, and acellular pertu is vaccine, adsorbed 1 2016 [id number] 115 Sanofi Pasteur (PMC) complet ed tetanus toxoid, reduced diphtheri a toxoid, and acellular pertussis vaccine, adsorbed DoD Encounters Combined list of: 1) Encounters from Department of Veterans Affairs facilities going backup to the last 18 months, not all VA inpatient encounters are included; 2) Encounters from the Department of Defense facilities going backup to 280 months. Location Location Details Encounter Type Encounter Number Reason For Visit Attending Provider ADM Date DC Date Status Disposition [place] [id number] Notes Entered by: DELVIS LOVE 01 Nov 2016 0817 ------- ------- ------- ------- -- hearing test DELVIS SCHOFIELD 11/01 Released w[place]itations [place] [facility] [id number] KATHYA TYSON 11/01 [place]ased [place]/o Limitations [place] [id number] Notes Entered by: Quin CHAMPAGNE 05 Nov 2016 0627 ------- ------- ------- ------- -- constip SERG Hi 11/05 [place] [id number] Notes Entered by: CARLA KIRK 05 Nov 2016 0925 ------- ------- ------- ------- -- MIRIAN SMITH ROSEMARY T 11/05 [place]o [place]itations [place] [id number] CHRISTY Connell 11/12 [place]ased [place]o Limitations [place] [facility] [id number] Notes Entered by: MARY HERNANDEZ 12 Nov 2016 1059 ------- ------- ------- ------- -- FMS Screen MARY MARY Stokes 11/12 [place]ased [place]/o Limitations [place] [id number] DERM f/u wound care CHRISTY VANN 11/20 [place]ased [place]o Limitations [place] [id number] LOUISE SAVAGE 12/04 [place]ased [place]o Limitations [place] [id number] ORTHO f/u ER MRI right shoulde r CHRISTY VANN 12/11 Immediate Ref[place] [id number] right hsoulde r injury ALFREDOSHARON BENAVIDEZHAN S 12/11 [place]ased [place] Limitations [place] [id number] shoulde r immob with ANIYAH Kitchen 12/13 [place]ased [place]o Limitations [place]ING [place] [facility], DIRECT TO [facility] [id number] OMAR FUENTES S 12/13 RETURNED TO DUTY [place] [facility] [employer] [id number] TIM BLAKE 12/17 [place]ased [place]itations [place] [id number] THERAPY ELE LESTER 12/19 Released with Work/Duty Limitations [place]) [place] [id number] THERAPY MIRTHA LESTERL A 12/21 Released with Work/Duty Limitations [facility] [place] [facility] [place]) [place] [id number] THERAPY TAYLER ELE A 12/27 Released with Work/Duty Limitations [facility] [place]) [place] [id number] pop, dos 13 December 2016, right shoulde r ALFREDO, OMAR S 12/28 [place]ased [place] Limitations [facility] [place] [id number] Notes Entered by: Chi MURPHY 01 Jan 2017 1147 ------- ------- ------- ------- -- SF part 1 JOANIE ENG 01/01 [place]ased [place]/o Limitations [facility] [place] [place] [facility]) [place] [id number] FOllow Up MARILYN BLACK 01/28 [place]ased [place] Limitations [facility] [place]) [place] [id number] therapy PATI JEAN S 01/29 Released w/o Limitations [facility] [place](Phys ical Therapy ) [facility] [place]Orthop edic) OUTPATIENT [id number] f/u r shoulde r ALFREDO, OMAR S 01/29 [place] [facility] [place] [facility] [employer] [id number] therapy PATI JEAN S 01/30 Released w/o Limitations [facility] [employer] [place]) [place] [id number] thereap y PATI JEAN S 02/01 Released w/o Limitations [facility] [employer] [place] [facility] [employer] [id number] therapy PATI JEAN S 02/04 Released w/o Limitations [facility] [employer] [place] [facility] [employer] [id number] therapy PATI JEAN S 02/06 Released w/o Limitations [facility] [employer] [place] [facility] [employer] [id number] therapy PATI JEAN S 02/08 Released w/o Limitations [facility] [employer] [place] [facility] [employer] [id number] therapy PATI JEAN S 02/11 Released w/o Limitations [facility] [employer] [place] [facility] [employer]) [place] [id number] follow up, PBO MARILYN Foley 02/13 Released w/o Limitations [facility] [employer] [place] [facility] [employer] [id number] Notes Entered by: Jerrod AYALA 19 Feb 2017 0656 ------- ------- ------- ------- -- Jerrod F/U DOS 13 DEC 2016 KITTY BLANTON 02/19 Released with Work/Duty Limitations [facility] [employer] [place] [facility] [place] [facility] [employer] [id number] Notes Entered by: Jerrod AYALA 19 Feb 2017 1017 ------- ------- ------- ------- -- Rehab ALEXIS AYALA 02/19 Released with Work/Duty Limitations [facility] [employer] [place] [id number] f/u right brooke r OMAR FUENTES 02/27 Released [place]o Limitations [place] [id number] Notes Entered by: RENEE JASSO 08 Apr 2017 0805 ------- ------- ------- ------- -- f/u r JENA Hardwick 04/08 Released w/o Limitations [place] , [place] [id number] Notes Entered by: Chi MURPHY 16 Apr 2017 1018 ------- ------- ------- ------- -- SF part 1 JOANIE ENG 04/16 Released w/o Limitations [place] [facility]) OUTPATIENT [id number] Notes Entered by: ALEXIS GRIFFIN 22 Apr 2017 1326 ------- ------- ------- ------- -- IMM-FLU CHRISTY BATES 04/22 Released w/o Limitations [place] [id number] Notes Entered by: Chi MURPHY 21 May 2017 0719 ------- ------- ------- ------- -- Sf PART 1 JOANIE ENG 05/21 Released w/o Limitations [place] , [place]) [place]) OUTPATIENT [id number] Notes Entered by: ALTON BARRAZA 21 May 2017 1206 ------- ------- ------- ------- -- SF part 1 / chest x ray result. [place] Naresh 05/21 Released w/o Limitations [facility] , [place]([facility] OUTPATIENT [id number] Notes Entered by: Tami MELÉNDEZ 21 May 2017 1249 ------- ------- ------- ------- -- EKG DAVID MELÉNDEZ 05/21 Released w/o Limitations [place] [facility] [place] [facility] TELE CONSULT [id number] Notes Entered by: GIULIA GARCIA 21 May 2017 1323 ------- ------- ------- ------- -- follow up KAMRON VALENCIA 05/21 [facility] KRIS[facility]ime , [place]([facility] [id number] Encount er for screeni ng for cardiov ascular disorde rs...ELENITA Gamboa 05/27 Released w/o Limitations [facility]is PONCEJaime , [place](Card iology Clinic) Robin álvarez [facility](Cardio logy) OUTPATIENT [id number] EKG fayea BLAINE Tillman 07/04 Released w/o Limitations Robin al[facility](Card iology) [facility]is KR[facility], [place]([facility] OUTPATIENT [id number] KAMRON VALENCIA 07/18 [place]ased w/o Limitations [place], [place]([facility] TELE CONSULT [id number] Notes Entered by: GIULIA GARCIA 19 Jul 2017 1232 ------- ------- ------- ------- -- follow up KAMRON VALENCIA 07/19 [place]LE CONS[place] [id number] KAMRON VALENCIA 09/02 [place] [facility] Robin álvarez [facility] [place]Card[place]y) [place] [id number] new pt LORRI MORGANRICK 10/24 Released w/o Limitations [facility] [place]) [place] [id number] STEPHANIE VALLES 10/31 Sick at Home/Quarter s [place]) [place] [id number] CARDIO f/u LAUREL SEYMOUR 12/03 Released w/o Limitations [place] , [place] TELE CONSULT [id number] KAMRON VALENCIA 12/04 [place] [id number] Notes Entered by: GIULIA GARCIA 10 Dec 2017 1021 ------- ------- ------- ------- -- f/u DAVID VIEIRA 12/10 Released w/o Limitations [place] TELE CONSULT [id number] KAMRON VALENCIA 02/26 [facility] [place] [facility] TELE CONSULT [id number] KAMRON VALENCIA 02/28 [place] TELE CONSULT [id number] KAMRON VALENCIA 03/06 [place] TELE CONSULT [id number] CHRISTY VANN 03/26 [place] OUTPATIENT [id number] Notes Entered by: GIULIA GARCIA 16 Apr 2018 0918 ------- ------- ------- ------- -- follow up PET scan DAVID MELÉNDEZ 04/16 Released w/o Limitations [place] [facility] OUTPATIENT [id number] Notes Entered by: GIULIA GARCIA 18 Apr 2018 1015 ------- ------- ------- ------- -- Part One KAMRON VALENCIA 04/18 Released w/o Limitations [place] [facility] OUTPATIENT [id number] Notes Entered by: GIULIA GARCIA 28 Apr 2018 1247 ------- ------- ------- ------- -- Part One KAMRON VALENCIA 04/28 Released w/o Limitations [place] [facility] [id number] Notes Entered by: DELVIS LOVE 01 May 2018 1156 ------- ------- ------- ------- -- annual hearing test DELVIS SCHOFIELD 05/01 Released w/o Limitations [place] [facility] [place] OUTPAT[place] [id number] Notes Entered by: GIULIA GARCIA 02 May 2018 1118 ------- ------- ------- ------- -- CHRISTY Em 05/02 Released w/o Limitations [facility], [place]([facility]) [facility] [place] [place] [id number] Notes Entered by: Tami MELÉNDEZ 06 May 2018 0614 ------- ------- ------- ------- -- Chart review DAVID MELÉNDEZ 05/06 Released w/o Limitations [facility], [place]([facility]) [facility] [place] OUTPATIENT [id number] Notes Entered by: Chi VICTOR 09 Jul 2018 0906 ------- ------- ------- ------- -- VIRTUAL PHA ANIYAH MACK 07/09 Released w/o Limitations [facility] [employer] [facility] [employer] TELE CONSULT [id number] LORRI MUNOZ 07/09 [facility] [employer] [facility] [employer] [id number] Notes Entered by: Chi VICTOR 09 Jul 2018 1059 ------- ------- ------- ------- -- VIRTUAL PHA MAHI SNIDER 07/09 Released w/o Limitations [facility], [employer] [facility], [place] OUTPATIENT [id number] ALEXIS Mayen 07/17 Released with Work/Duty Limitations [facility], [employer]([address]) [facility] [employer] [place] Physical Therapy) OUTPATIENT [id number] Pain in right shoulde r DEMARCO DOUGLAS 07/28 Released w/o Limitations [facility] [employer] Physica l [facility] ) [facility] [employer] [facility] [id number] Notes Entered by: CONI LEON 30 Jul 2018 1020 ------- ------- ------- ------- -- XC X CASE MANAGEM ENT EPISODI C, f/u CT scan CONI LEON 07/30 Released w/o Limitations [facility], [employer]) [facility] [employer] OUTPATIENT [id number] leonidaso SANDER MUÑOZ 08/01 Released w/o Limitations [facility] [employer] Physica [facility] ) [facility] [employer] [place]([address]) TELE CONSULT [id number] Notes Entered by: JARAD QUILES 01 Aug 2018 1045 ------- ------- ------- ------- -- MRI results ALEXIS PFEIFFER 08/01 [facility] [employer] [facility] [facility] [employer] [place] OUTPATIENT [id number] SANDER MUÑOZ 08/06 Released w/o Limitations [facility] [employer] Physica [facility] ) [facility] [employer] [place] [facility] TELE CONSULT [id number] Notes Entered by: ELVIAARRON Divya 06 Aug 2018 1024 ------- ------- ------- ------- -- arthrog jannie / MRI results ALEXIS PFEIFFER 08/06 [facility] [employer] [place]) [facility] [employer] OUTPATIENT [id number] SANDER MUÑOZ Jerrod 08/12 Released w/o Limitations [facility] [employer] [place] [place] ) [facility] [employer] OUTPATIENT [id number] SANDER MUÑOZ Jerrod 08/14 Released w/o Limitations [facility] [employer] [place] [place] ) [facility] [employer] OUTPATIENT [id number] SANDER MUÑOZ Jerrod 08/19 Released w/o Limitations [facility] [employer] [place] [place] ) [facility] [employer] OUTPATIENT [id number] SANDER MUÑOZ Jerrod 08/21 Released w/o Limitations [facility] [employer] [place] [place] ) [facility] [employer] [place] [facility] OUTPATIENT [id number] f/u DEMARCO DOUGLAS 08/22 Released w/o Limitations [facility] [employer] [place] ) [facility] [employer]) [place] [id number] Encount er for other adminis trative examina BLAINE Palacios 08/27 Released w/o Limitations [facility] [employer] [facility] [employer] [place] [facility] OUTPATIENT [id number] SANDER MUÑOZ 08/29 Released w/o Limitations [facility] [employer] [place] ) [facility] [employer] [id number] XQ: f/u for right shoulde r BLAINE FRANCOIS 10/06 Released w/o Limitations [facility] [employer] [facility] [employer]) [place] [id number] saw Antonio v; right shoulde r BLAINE ACEVEDO 01/19 Released w/o Limitations [facility] [employer] [facility] [employer]) [place] [id number] SURG [id number] R SH BLAINE ACEVEDO 02/13 Released w/o Limitations [facility] [employer] [facility] [employer]) [place] [id number] preop R shoulde r CHRISSY LAINEZ 02/13 Released w/o Limitations [facility] [employer] [facility] [employer] [id number] Right Shoulde r SADIA GIBSON 02/13 Released w/o Limitations [facility] [employer] [facility] [employer]LE [place] [id number] Notes Entered by: JOSE M TANNER 16 Feb 2019 0949 ------- ------- ------- ------- -- right shoulde r JOYA BUSCH 02/16 Referred for Appointment [facility] [employer] [facility] [employer] [id number] Notes Entered by: JOSE M TANNER 18 Feb 2019 1021 ------- ------- ------- ------- -- JOYA Garland 02/18 Other Not Elsewhere Classified [facility] [employer] [facility] [employer]) [place] [id number] 2day pop R ELENITA Griffiths 02/27 Released w/o Limitations [facility] [employer] [facility] [employer]LE [place] [id number] Notes Entered by: TANYA MUELLER 10 Mar 2019 0954 ------- ------- ------- ------- -- ARCADIO Almaraz 03/10 [facility] [employer] [facility] [employer]) [place] [id number] xq-post op-surg [id number] -r GENNA Khan pt. 03/12 Released with Work/Duty Limitations [facility] [employer] [facility] [employer]) [place] [id number] 2wk pop R JENA Guaman 03/20 Released w/o Limitations [facility] [employer] [facility] [employer]) [place] [id number] ROSALIO NASCIMENTO 03/27 Released w/o Limitations [facility] [employer] [facility] [employer]) [place] [id number] ROSALIO NASCIMENTO F 03/31 Released w/o Limitations [facility] [employer] [facility] [employer]) [place] [id number] ROSALIO NASCIMENTO F 04/09 Released w/o Limitations [facility] [employer] [facility] [employer]) [place] [id number] xq:f/u right arm/Dos :4Sept2 019/Per BLAINE Bah 04/10 Released w/o Limitations [facility] [employer] [facility] [employer] [id number] ROSALIO NASCIMENTO F 04/13 Released w/o Limitations [facility] [employer] [facility] [employer] [id number] ROSALIO NASCIMENTO F 04/16 Released w/o Limitations [facility] [employer] [facility] [employer]LE CONS[place] [id number] Notes Entered by: SERG KNOX 20 Apr 2019 1318 ------- ------- ------- ------- -- Polypha rmacy Cohort 5 CONI ROONEY 04/20 Other Not Elsewhere Classified [facility] [employer] [facility] [employer] [id number] annual ADA HARRIS 05/12 Released w/o Limitations [facility] [employer] [facility] [employer]) [place] [id number] f/u R shoulde r JENA JURADO 05/14 Released w/o Limitations [facility] [employer] [facility] [employer]) [place] [id number] f/u R shoulde r RHIANNONJENA 06/26 Released with Work/Duty Limitations [facility], [employer] [facility] [employer]) [place] [id number] 7 modalit ies R shoulde r per LTC CHRISSY Vasquez 06/29 Released w/o Limitations [facility], [employer] [facility] [employer]) [place] [id number] 8 modalit ies R shoulde r per LTC Rhiannon CHRISSY LAINEZ 07/01 Released w/o Limitations [facility], [employer] [facility] [employer] [place] TELE CONSULT [id number] Notes Entered by: Jack ESCOBAR 17 Nov 2019 0647 ------- ------- ------- ------- -- Possibl e Slipped Disk and F/U from ANIYAH CRANE 11/16 [facility] [employer] [place] [facility] [employer] [place] [id number] low back pain ANIYAH CRANE 11/19 Released w/o Limitations [facility], [employer] [facility] [employer] [place] [id number] /[id number]/ FOLLOW UP ON BACK INJURY/ [facility] ANIYAH CRANE 12/01 Released w/o Limitations [facility] [employer] [place] [facility], [place] [place] OUTPATIENT [id number] back injury f/u ANIYAH CRANE 12/08 Released w/o Limitations [facility] [employer] [place] [facility], [place] TELE CONSULT [id number] Notes Entered by: RENATE CRANE 09 Dec 2019 1330 ------- ------- ------- ------- -- x-ray results ANIYAH CRANE 12/08 [facility] [place] [place] [facility], [place] Physical Therapy) OUTPATIENT [id number] Spondyl olisthe sis, lumbosa cral region MORIS MILLER 12/23 Released w/o Limitations [facility], [employer] Physica l Therapy ) [facility] [place] [place] Therapy[place] OUTPATIENT [id number] 4 f/u MORIS MILLER 01/19 Released w/o Limitations [facility], [employer] Physica l Therapy ) [facility], [place] [place] TELE CONSULT [id number] Notes Entered by: Alexandro CALVILLO 25 Jan 2020 1455 ------- ------- ------- ------- -- covid19 screeni ng DIANA NORTON 01/24 [facility] [employer] [place] [facility] [place] [place]) OUTPATIENT [id number] 3 screeni ng - black YOKO Vale 01/24 Released w/o Limitations [facility] [employer] [place]) [facility], [place]([facility] Physical Therapy) OUTPATIENT [id number] 1 f/u back MORIS MILLER 02/17 Released w/o Limitations [facility], [employer], [place] Physica l Therapy ) [facility], [place] [place]) TELE CONSULT [id number] Notes Entered by: Jack ESCOBAR 06 Apr 2020 1208 ------- ------- ------- ------- -- Profile ANIYAH CRANE 04/06 [facility], [place], [place] [place]) [facility], [place] [place]) OUTPATIENT [id number] Profile concern ANIYAH Rene 04/12 Released w/o Limitations [facility], [place], [place] [place]) [facility], [place] [place]) TELE CONSULT [id number] Notes Entered by: RENATE CRANE 11 May 2020 0917 ------- ------- ------- ------- -- MRI results ANIYAH CRANE 05/11 [facility], [place], [place] [place]) [facility], [place] [place]) TELE CONSULT [id number] Notes Entered by: KIKI TEAGUE 24 May 2020 0624 ------- ------- ------- ------- -- [facility] / ANIYAH LOPEZ 05/24 [facility] [employer] [place] [facility] [place] OUTPATIENT [id number] LINDA Goodman 05/30 Released w/o Limitations [facility], [place], [place]([facility]) [facility], [place]) OUTPATIENT [id number] iliolum bar inj LINDA GREER CARLOS 06/06 Released w/o Limitations [facility], [place]) [facility], [place]) TELE CONSULT [id number] Notes Entered by: Jack WHITT 28 Jun 2020 0932 ------- ------- ------- ------- -- C19 SCREEN ACD MARILU WHITT 06/28 Referred for Appointment [facility], [place]([facility]) [facility], [place]([facility] Tent Sur[facility]3) OUTPATIENT [id number] 1 C19 TENT SX/CONT ACT WITH POSITIV E NERI LUNSFORD 06/28 Released with Work/Duty Limitations [facility], [place]([facility] Tent [facility]3) [facility], [place]) TELE CONSULT [id number] Notes Entered by: LINDA GREER CARLOS 28 Jun 2020 1223 ------- ------- ------- ------- -- back pain LINDA GREER CARLOS 06/28 [facility], [place]) [facility], [place] [place]) TELE CONSULT [id number] Notes Entered by: RENATE CRANE 11 Jul 2020 1820 ------- ------- ------- ------- -- pt needs OKB/MAR 2 ANIYAH CRANE 07/12 [facility] [employer] [place] [facility] [employer] TELE CONSULT [id number] Notes Entered by: TODD SAMAYOA 13 Jul 2020 0916 ------- ------- ------- ------- -- CONSULT REVIEW FOR OKJOANNA Alvarenga ANGELA M 07/13 [facility] [employer]) [facility] [employer] [place]iders ) OUTPATIENT [id number] [facility] HIMANSHU BRYANT TAYLOR 07/15 Released with Work/Duty Limitations [facility] [employer] [place] [facility] [employer] [id number] annual LORRI WOO 07/15 Released w/o Limitations [facility] [employer] [facility] [employer] [place] TELE CONSULT [id number] Notes Entered by: MARCE ERVIN 03 Oct 2020 1427 ------- ------- ------- ------- -- [facility] / ANIYAH CAMPA 10/03 [facility] [employer] [facility] [employer] [place] TELE CONSULT [id number] Notes Entered by: BLUE RM 14 Oct 2020 1223 ------- ------- ------- ------- -- ER Follow Up BLUE RM 10/14 Other Not Elsewhere Classified [facility] [employer] [facility] [employer] [place] OUTPATIENT [id number] ER f/u elevate d left hemidia phragm VADIM GARCIA 10/17 Released w/o Limitations [facility], [place]([facility] [place]) [facility], [place]([facility] Providers ) OUTPATIENT [id number] DICTATI ON BRYANT TAYLOR 10/25 Released with Work/Duty Limitations [facility], [place]([facility] Provide rs) [place] [id number] Notes Entered by: KYLEE GOLDMAN 25 Oct 2020 1403 ------- ------- ------- ------- -- CJJX CASE MANAGEM ENT SCREEN- Pulmona ry Referra l KYLEE GOLDMAN 10/25 Released w/o Limitations [facility], [place]([employer] [place] ) [place] TELE CONSULT [id number] Notes Entered by: LINDA GREER 22 Nov 2020 1318 ------- ------- ------- ------- -- low back pain with radicul itis LINDA GREER 11/22 [facility], [place]) [place] [id number] Notes Entered by: KYLEE GOLDMAN 24 Nov 2020 0950 ------- ------- ------- ------- -- XCJJX CASE MANAGEM ENT EPISODI C- Pulmona ry F/U KYLEE GOLDMAN 11/24 Released with Work/Duty Limitations [facility], [place]([employer] Supervisor ) [facility] [place] [place] TELE CONSULT [id number] Notes Entered by: TODD MARIE 25 Nov 2020 1403 ------- ------- ------- ------- -- NETWORK RESULTS ANIYAH CRANE 11/25 [facility] [place] [place] [id number] Notes Entered by: KYLEE GOLDMAN 29 Nov 2020 0729 ------- ------- ------- ------- -- XCJJX CASE MANAGEM ENT EPISODI C- Thoraci c Surgery Consult KYLEE GOLDMAN 11/29 Released with Work/Duty Limitations [place] [facility] [place] [place] TELE CONSULT [id number] Notes Entered by: NOEMI FISHER 30 Nov 2020 1234 ------- ------- ------- ------- -- [facility] /RIGHT SHOULDE R/SEE NOTES ENGLISH ANIYAH SANDER 11/30 [facility] [place] [place] [facility] [place] [id number] Notes Entered by: KYLEE GOLDMAN 06 Dec 2020 1328 ------- ------- ------- ------- -- XCJJX CASE MANAGEM ENT START- Surgery Approva l KYLEE GOLDMAN 12/06 Released with Work/Duty Limitations [place] [id number] Notes Entered by: KYLEE GOLDMAN 08 Dec 2020 1059 ------- ------- ------- ------- -- XCJJX CASE MANAGEM ENT CONTINU E- Surgery Appronicole avila JONES KYLEE Infante 12/08 Released with Work/Duty Limitations [place] [facility] TRNF TO [facility] [id number] ABSENT, SICK 12/12 [place]URN[place] TO D[place] [facility], [employer] [id number] Notes Entered by: KYLEE GOLDMAN 12 Dec 2020 1246 ------- ------- ------- ------- -- XCJJX CASE MANAGEM ENT CONTINU E- Admissi on KYLEE GOLDMAN 12/12 Inpatient- Still a Patient [facility] [place] [id number] Notes Entered by: KYLEE GOLDMNA 14 Dec 2020 1547 ------- ------- ------- ------- -- XCJJX CASE MANAGEM ENT CONTINU E- Dischar naheed Parra soraya KYLEE GOLDMAN 12/14 Inpatient- Still a Patient [facility] [place] [id number] Notes Entered by: KYLEE GOLDMAN 19 Dec 2020 0812 ------- ------- ------- ------- -- XCJJX CASE MANAGEM ENT CONTINU E- Inpatie nt F/U KYLEE GOLDMAN 12/19 Inpatient- Discharged to Home/Self-ca re [place] [id number] Notes Entered by: KYLEE GOLDMAN 03 Jan 2021 1114 ------- ------- ------- ------- -- XCJJX CASE MANAGEM ENT CONTINU E- Surgica l F/U KYLEE GOLDMAN 01/03 Released with Work/Duty Limitations [place] [id number] Notes Entered by: KYLEE GOLDMAN 05 Jan 2021 1356 ------- ------- ------- ------- -- XCJJX CASE MANAGEM ENT CONTINU E- Surgica l F/U KYLEE GOLDMAN 01/05 Released with Work/Duty Limitations [place] [id number] Notes Entered by: KYLEE GOLDMAN 10 Jan 2021 1519 ------- ------- ------- ------- -- XCJJX CASE MANAGEM ENT CONTINU E- Separat ion KYLEE Ordonez 01/10 Released with Work/Duty Limitations [place] [id number] Notes Entered by: KYLEE GOLDMAN 19 Jan 2021 1040 ------- ------- ------- ------- -- XCJJX CASE MANAGEM ENT CONTINU E- Pulmona ry F/U KYLEE GOLDMAN 01/19 Released with Work/Duty Limitations [facility], [place] [place] ) [place] [id number] Notes Entered by: KYLEE GOLDMAN 01 Feb 2021 1143 ------- ------- ------- ------- -- XCJJX CASE MANAGEM ENT CONTINU E- Follow up JONESKYLEE Naresh 02/01 Released with Work/Duty Limitations [facility], [place] [place] [id number] Notes Entered by: KYLEE GOLDMAN 07 Feb 2021 1147 ------- ------- ------- ------- -- XCJJX CASE MANAGEM ENT CONTINU E- Records KYLEE GOLDMAN 02/07 Released with Work/Duty Limitations [facility], [place] Super[place] ) [place] [id number] Notes Entered by: KYLEE GOLDMAN 10 Feb 2021 1606 ------- ------- ------- ------- -- XCJJX CASE MANAGEM ENT CONTINU E- Follow Up KYLEE GOLDMAN 02/10 Released with Work/Duty Limitations [facility] [place]([employer] ) [place] DIRECT TO [facility] NEVER TRNF TO [facility] [id number] ABSENT, SICK 02/12 RETURNED TO DUTY [facility] [place] [id number] Notes Entered by: KYLEE GOLDMAN 14 Feb 2021 0711 ------- ------- ------- ------- -- XCJJX CASE MANAGEM ENT CONTINU E- Admissi on KYLEE GOLDMAN 02/14 Admitted [place] [id number] Notes Entered by: KYLEE GOLDMAN 22 Feb 2021 1353 ------- ------- ------- ------- -- XCJJX CASE MANAGEM ENT CONTINU E- Dischar ge KYLEE GOLDMAN 02/22 Inpatient- Still a Patient [place] [id number] Notes Entered by: KYLEE GOLDMAN 03 Mar 2021 1115 ------- ------- ------- ------- -- XCJJX CASE MANAGEM ENT CONTINU E- Home Health F/U KYLEE GOLDMAN 03/03 Sick at Home/Quarter s [place] [id number] Notes Entered by: KYLEE GOLDMAN 17 Mar 2021 1123 ------- ------- ------- ------- -- XCJJX CASE MANAGEM ENT CONTINU E- Pulmona ry F/U KYLEE GOLDMAN 03/17 Released w/o Limitations [place] [id number] Notes Entered by: KYLEE GOLDMAN 05 Apr 2021 1025 ------- ------- ------- ------- -- XCJJX CASE MANAGEM ENT END- Case Closure KYLEE GOLDMAN 04/05 Released w/o Limitations [facility], [place] [facility] [place](Cal[place] ) [facility] Outpatient Encounter [id number] 06/16 [place] [facility] Outpatient Encounter [id number] 11/11 [place] [facility] Outpatient Encounter [id number] 11/11 [place] [facility] Outpatient Encounter [id number] 11/11 [place] [facility] Outpatient Encounter [id number] 11/18 [place] [facility] Outpatient Encounter [id number] 11/18 [place] [facility] Procedures Combined list of: 1) Procedures from Department of [facility], not all CT non-surgical procedures are included; 2) All procedures from the Department of [facility] facilities. Procedure Procedure Type Code Date Perfomer Comments [facility] e ELECTROCARDIOGRAM, ROUTINE ECG WITH AT LEAST 12 LEADS; WITH INTERPRETATION AND REPORT 10/24 [facility] ELECTROCARDIOGRAM, ROUTINE ECG WITH AT LEAST 12 LEADS; WITH INTERPRETATION AND REPORT 07/04 [facility] PURE TONE AUDIOMETRY (THRESHOLD), AUTOMATED; AIR ONLY 05/01 [facility] INTRAVENOUS INFUSION, HYDRATION; INITIAL, 31 MINUTES TO 1 HOUR 10/30 [facility] CARDIOVASCULAR STRESS TEST USING MAXIMAL OR SUBMAXIMAL TREADMILL OR BICYCLE EXERCISE,CONTINUOUS ELECTROCARDIOGRAPHIC MONITORING,AND/OR PHARMACOLOGICAL STRESS;W SUPERVISION,INTERPRETA TION AND REPORT 05/27 DoD ELECTROCARDIOGRAM, ROUTINE ECG WITH AT LEAST 12 LEADS; INTERPRETATION AND REPORT ONLY 05/21 [facility] INFLUENZA VIRUS VACCINE, QUADRIVALENT (IIV4), SPLIT VIRUS, PRESERVATIVE FREE, 0.5 ML DOSAGE, FOR INTRAMUSCULAR USE 04/22 DoD POSTOPERATIVE FOLLOW-UP VISIT, NORMALLY INCLUDED IN THE SURGICAL PACKAGE, INDICATE THAT EVALUATION & MANAGEMENT SERVICE WAS PERFORMED DURING A POSTOPERATIVE PERIOD REASON RELATED ORIGINAL PROCEDURE 02/27 DoD RE-EVAL,PHYSICAL THERAPY EST PLAN OF CARE,REQ:EXAM,REV,HX & USE,STAND TESTS &AC REQ;REV PLAN OF CARE USING STAND PAT ASSESS INSTR &/AC ASSESS FUNC OUTCOME TYP,20 MIN SPENT [id number] W PAT&/FAM 02/19 DoD RE-EVAL,PHYSICAL THERAPY EST PLAN OF CARE,REQ:EXAM,REV,HX & USE,STAND TESTS &AC REQ;REV PLAN OF CARE USING STAND PAT ASSESS INSTR &/AC ASSESS FUNC OUTCOME TYP,20 MIN SPENT [id number] W PAT&/FAM 02/13 DoD APPLICATION OF A MODALITY TO 1 OR MORE AREAS; HOT OR COLD PACKS 02/11 DoD THERAPEUTIC PROCEDURE(S), GROUP (2 OR MORE INDIVIDUALS) 02/08 DoD THERAPEUTIC PROCEDURE(S), GROUP (2 OR MORE INDIVIDUALS) 02/06 DoD APPLICATION OF A MODALITY TO 1 OR MORE AREAS; HOT OR COLD PACKS 02/04 DoD THERAPEUTIC PROCEDURE(S), GROUP (2 OR MORE INDIVIDUALS) 02/01 DoD THERAPEUTIC PROCEDURE(S), GROUP (2 OR MORE INDIVIDUALS) 01/30 DoD POSTOPERATIVE FOLLOW-UP VISIT, NORMALLY INCLUDED IN THE SURGICAL PACKAGE, INDICATE THAT EVALUATION & MANAGEMENT SERVICE WAS PERFORMED DURING A POSTOPERATIVE PERIOD REASON RELATED ORIGINAL PROCEDURE 01/29 DoD MANUAL THERAPY TECHNIQUES (EG, MOBILIZATION/ MANIPULATION, MANUAL LYMPHATIC DRAINAGE, MANUAL TRACTION), 1 OR MORE REGIONS, EACH 15 MINUTES 01/29 DoD RE-EVAL,PHYSICAL THERAPY EST PLAN OF CARE,REQ:EXAM,REV,HX & USE,STAND TESTS &AC REQ;REV PLAN OF CARE USING STAND PAT ASSESS INSTR &/AC ASSESS FUNC OUTCOME TYP,20 MIN SPENT [id number] W PAT&/FAM 01/28 DoD POSTOPERATIVE FOLLOW-UP VISIT, NORMALLY INCLUDED IN THE SURGICAL PACKAGE, INDICATE THAT EVALUATION & MANAGEMENT SERVICE WAS PERFORMED DURING A POSTOPERATIVE PERIOD REASON RELATED ORIGINAL PROCEDURE 12/28 DoD APPLICATION OF A MODALITY TO 1 OR MORE AREAS; HOT OR COLD PACKS 12/27 DoD UPPER EXTREMITY ADDITION, EXCURSION AMPLIFIER, YUAN TYPE 12/21 [facility] THERAPEUTIC PROCEDURE(S), GROUP (2 OR MORE INDIVIDUALS) 12/19 [facility] INTRODUCTION OF REGIONAL ANESTHETIC INTO PERIPHERAL NERVES AND PLEXI, PERCUTANEOUS APPROACH 12/17 [facility] REPAIR RIGHT SHOULDER JOINT, PERCUTANEOUS ENDOSCOPIC APPROACH 12/17 [facility] PHYSICAL THERAPY EVALUATION:MODERATE COMPLEXITY,REQ:HIST PRES PROB,1-2 PERS FACT &/COMORB,IMPACT PLAN OF CARE;CLIN DECIS MAKING OF MOD COMPLEX,TYP,30 MIN ARE SPENT [id number] W THE PATIENT &/FAMILY 12/17 [facility] POSTOPERATIVE FOLLOW-UP VISIT, NORMALLY INCLUDED IN THE SURGICAL PACKAGE, INDICATE THAT EVALUATION & MANAGEMENT SERVICE WAS PERFORMED DURING A POSTOPERATIVE PERIOD REASON RELATED ORIGINAL PROCEDURE 12/17 [facility] POSTOPERATIVE FOLLOW-UP VISIT, NORMALLY INCLUDED IN THE SURGICAL PACKAGE, INDICATE THAT EVALUATION & MANAGEMENT SERVICE WAS PERFORMED DURING A POSTOPERATIVE PERIOD REASON RELATED ORIGINAL PROCEDURE 12/16 [facility] POSTOPERATIVE FOLLOW-UP VISIT, NORMALLY INCLUDED IN THE SURGICAL PACKAGE, INDICATE THAT EVALUATION & MANAGEMENT SERVICE WAS PERFORMED DURING A POSTOPERATIVE PERIOD REASON RELATED ORIGINAL PROCEDURE 12/14 [facility] ARTHROSCOPY, SHOULDER, SURGICAL; CAPSULORRHAPHY 12/13 [facility] SHOULDER ORTHOSIS, ACROMIO/CLAVICULAR (CANVAS AND WEBBING TYPE), PREFABRICATED, [id number] 12/13 [facility] SLINGS 12/03 [facility] PHYSICAL PERFORMANCE TEST OR MEASUREMENT (EG, MUSCULOSKELETAL, FUNCTIONAL CAPACITY), WITH WRITTEN REPORT, EACH 15 MINUTES 11/12 [facility] EXCISION, BENIGN LESION INCLUDING MARGINS, EXCEPT SKIN TAG (UNLESS LISTED ELSEWHERE), SCALP, NECK, HANDS, FEET, GENITALIA; EXCISED DIAMETER 2.1 TO 3.0 CM 11/12 [facility] INFLUENZA VIRUS VACCINE, QUADRIVALENT (IIV4), SPLIT VIRUS, 0.5 ML DOSAGE, FOR INTRAMUSCULAR USE 11/05 [facility] SCREENING TEST OF VISUAL ACUITY, QUANTITATIVE, BILATERAL 11/01 [facility] PURE TONE AUDIOMETRY (THRESHOLD), AUTOMATED; AIR ONLY 11/01 [facility] CASE MANAGEMENT, EACH 15 MINUTES 04/05 DoD CASE MANAGEMENT, EACH 15 MINUTES 03/17 DoD CASE MANAGEMENT, EACH 15 MINUTES 03/03 DoD CASE MANAGEMENT, EACH 15 MINUTES 02/22 DoD CASE MANAGEMENT, EACH 15 MINUTES 02/14 DoD CASE MANAGEMENT, EACH 15 MINUTES 02/10 DoD CASE MANAGEMENT, EACH 15 MINUTES 02/07 DoD CASE MANAGEMENT, EACH 15 MINUTES 02/01 DoD CASE MANAGEMENT, EACH 15 MINUTES 01/19 DoD CASE MANAGEMENT, EACH 15 MINUTES 01/10 DoD CASE MANAGEMENT, EACH 15 MINUTES 01/05 DoD CASE MANAGEMENT, EACH 15 MINUTES 01/03 DoD CASE MANAGEMENT, EACH 15 MINUTES 12/19 DoD CASE MANAGEMENT, EACH 15 MINUTES 12/14 DoD CASE MANAGEMENT, EACH 15 MINUTES 12/12 DoD CASE MANAGEMENT, EACH 15 MINUTES 12/08 DoD CASE MANAGEMENT, EACH 15 MINUTES 12/06 DoD CASE MANAGEMENT, EACH 15 MINUTES 11/29 DoD CASE MANAGEMENT, EACH 15 MINUTES 11/24 DoD CASE MANAGEMENT, EACH 15 MINUTES 10/25 [facility] TELE ASSESS & MGT SRV PROV QUAL NONPHYS HLTH CARE PRO TO EST PAT,PARENT,GUARD NOT ORIG REL ASSESS & MGT SRV PROV W/IN PREV 7 DAYS NOR LEAD ASSESS & MGT SRV/PX W/IN NXT 24 HR/SOON APT;5-10 MIN MED DIS 10/14 [facility] PATIENT EDUCATION, NOT OTHERWISE CLASSIFIED, NON-PHYSICIAN PROVIDER, GROUP, PER SESSION 07/15 [facility] TELE ASSESS & MGT SRV PROV QUAL NONPHYS HLTH CARE PRO TO EST PAT,PARENT,GUARD NOT ORIG REL ASSESS & MGT SRV PROV W/IN PREV 7 DAYS NOR LEAD ASSESS & MGT SRV/PX W/IN NXT 24 HR/SOON APT;5-10 MIN MED DIS 06/28 [facility] ULTRASONIC GUIDANCE FOR NEEDLE PLACEMENT (EG, BIOPSY, ASPIRATION, INJECTION, LOCALIZATION DEVICE), IMAGING SUPERVISION AND INTERPRETATION 06/06 [facility] THERAPEUTIC PROCEDURE,1 OR MORE AREAS,EACH 15 MINUTES;NEUROMUSCULAR REEDUCATION OF MOVEMENT,BALANCE,COORD INATION,KINESTHETIC SENSE,POSTURE,AND/OR PROPRIOCEPTION FOR SITTING AND/OR STANDING ACTIVITIES 02/17 [facility] TELE ASSESS & MGT SRV PROV QUAL NONPHYS HLTH CARE PRO TO EST PAT,PARENT,GUARD NOT ORIG REL ASSESS & MGT SRV PROV W/IN PREV 7 DAYS NOR LEAD ASSESS & MGT SRV/PX W/IN NXT 24 HR/SOON APT;5-10 MIN MED DIS 01/24 [facility] THERAPEUTIC PROCEDURE, 1 OR MORE AREAS, EACH 15 MINUTES; THERAPEUTIC EXERCISES TO DEVELOP STRENGTH AND ENDURANCE, RANGE OF MOTION AND FLEXIBILITY 01/19 DoD THERAPEUTIC PROCEDURE, 1 OR MORE AREAS, EACH 15 MINUTES; THERAPEUTIC EXERCISES TO DEVELOP STRENGTH AND ENDURANCE, RANGE OF MOTION AND FLEXIBILITY 12/23 DoD WAIVER SERVICES; NOT OTHERWISE SPECIFIED (NOS) 12/01 [facility] THERAPEUTIC PROCEDURE(S), GROUP (2 OR MORE INDIVIDUALS) 07/01 [facility] THERAPEUTIC PROCEDURE(S), GROUP (2 OR MORE INDIVIDUALS) 06/29 [facility] RE-EVAL,PHYSICAL THERAPY EST PLAN OF CARE,REQ:EXAM,REV,HX & USE,STAND TESTS &AC REQ;REV PLAN OF CARE USING STAND PAT ASSESS INSTR &/AC ASSESS FUNC OUTCOME TYP,20 MIN SPENT [id number] W PAT&/FAM 06/26 [facility] THERAPEUTIC PROCEDURE, 1 OR MORE AREAS, EACH 15 MINUTES; THERAPEUTIC EXERCISES TO DEVELOP STRENGTH AND ENDURANCE, RANGE OF MOTION AND FLEXIBILITY 05/14 [facility] PURE TONE AUDIOMETRY (THRESHOLD), AUTOMATED; AIR ONLY 05/12 [facility] THERAPEUTIC PROCEDURE(S), GROUP (2 OR MORE INDIVIDUALS) 04/16 [facility] THERAPEUTIC PROCEDURE(S), GROUP (2 OR MORE INDIVIDUALS) 04/13 [facility] POSTOPERATIVE FOLLOW-UP VISIT, NORMALLY INCLUDED IN THE SURGICAL PACKAGE, INDICATE THAT EVALUATION & MANAGEMENT SERVICE WAS PERFORMED DURING A POSTOPERATIVE PERIOD REASON RELATED ORIGINAL PROCEDURE 04/10 [facility] THERAPEUTIC PROCEDURE(S), GROUP (2 OR MORE INDIVIDUALS) 04/09 [facility] THERAPEUTIC PROCEDURE(S), GROUP (2 OR MORE INDIVIDUALS) 03/31 [facility] EXERCISE EQUIPMENT 03/27 [facility] THERAPEUTIC PROCEDURE, 1 OR MORE AREAS, EACH 15 MINUTES; THERAPEUTIC EXERCISES TO DEVELOP STRENGTH AND ENDURANCE, RANGE OF MOTION AND FLEXIBILITY 03/20 [facility] POSTOPERATIVE FOLLOW-UP VISIT, NORMALLY INCLUDED IN THE SURGICAL PACKAGE, INDICATE THAT EVALUATION & MANAGEMENT SERVICE WAS PERFORMED DURING A POSTOPERATIVE PERIOD REASON RELATED ORIGINAL PROCEDURE 03/12 [facility] TELE ASSESS & MGT SRV PROV QUAL NONPHYS HLTH CARE PRO TO EST PAT,PARENT,GUARD NOT ORIG REL ASSESS & MGT SRV PROV W/IN PREV 7 DAYS NOR LEAD ASSESS & MGT SRV/PX W/IN NXT 24 HR/SOON APT;5-10 MIN MED DIS 03/10 [facility] THERAPEUTIC PROCEDURE, 1 OR MORE AREAS, EACH 15 MINUTES; THERAPEUTIC EXERCISES TO DEVELOP STRENGTH AND ENDURANCE, RANGE OF MOTION AND FLEXIBILITY 02/27 DoD UNLISTED SPECIAL SERVICE, PROCEDURE OR REPORT 02/25 [facility] TELE ASSESS & MGT SRV PROV QUAL NONPHYS HLTH CARE PRO TO EST PAT,PARENT,GUARD NOT ORIG REL ASSESS & MGT SRV PROV W/IN PREV 7 DAYS NOR LEAD ASSESS & MGT SRV/PX W/IN NXT 24 HR/SOON APT;5-10 MIN MED DIS 02/18 DoD TELE ASSESS & MGT SRV PROV QUAL NONPHYS HLTH CARE PRO TO EST PAT,PARENT,GUARD NOT ORIG REL ASSESS & MGT SRV PROV W/IN PREV 7 DAYS NOR LEAD ASSESS & MGT SRV/PX W/IN NXT 24 HR/SOON APT;5-10 MIN MED DIS 02/16 [facility] SELF-CARE/HOME MANAGMENT TRAIN (EG,ACT OF DAILY LIVING (ADL) &COMPENSAT TRAIN,MEAL PREPARATION,SAFETY PROCS,AND INSTRUCT IN USE OF ASST TECHNOLOGY DEV/ADPT EQUIP) DIR ONE-ON-ONE CONT,EA 15 MINUTES 02/13 [facility] FLUID CIRCULATING COLD PAD WITH PUMP, ANY TYPE 02/13 DoD THERAPEUTIC PROCEDURE, 1 OR MORE AREAS, EACH 15 MINUTES; THERAPEUTIC EXERCISES TO DEVELOP STRENGTH AND ENDURANCE, RANGE OF MOTION AND FLEXIBILITY 08/29 [facility]D ARTHROCENTESIS, ASPIRATION AND/OR INJECTION, MAJOR JOINT OR BURSA (EG, SHOULDER, HIP, KNEE, SUBACROMIAL BURSA); WITHOUT ULTRASOUND GUIDANCE 08/27 DoD THERAPEUTIC PROCEDURE, 1 OR MORE AREAS, EACH 15 MINUTES; THERAPEUTIC EXERCISES TO DEVELOP STRENGTH AND ENDURANCE, RANGE OF MOTION AND FLEXIBILITY 08/22 DoD THERAPEUTIC PROCEDURE,1 OR MORE AREAS,EACH 15 MINUTES;NEUROMUSCULAR REEDUCATION OF MOVEMENT,BALANCE,COORD INATION,KINESTHETIC SENSE,POSTURE,AND/OR PROPRIOCEPTION FOR SITTING AND/OR STANDING ACTIVITIES 08/21 DoD THERAPEUTIC PROCEDURE,1 OR MORE AREAS,EACH 15 MINUTES;NEUROMUSCULAR REEDUCATION OF MOVEMENT,BALANCE,COORD INATION,KINESTHETIC SENSE,POSTURE,AND/OR PROPRIOCEPTION FOR SITTING AND/OR STANDING ACTIVITIES 08/19 DoD THERAPEUTIC PROCEDURE,1 OR MORE AREAS,EACH 15 MINUTES;NEUROMUSCULAR REEDUCATION OF MOVEMENT,BALANCE,COORD INATION,KINESTHETIC SENSE,POSTURE,AND/OR PROPRIOCEPTION FOR SITTING AND/OR STANDING ACTIVITIES 08/14 DoD THERAPEUTIC PROCEDURE, 1 OR MORE AREAS, EACH 15 MINUTES; THERAPEUTIC EXERCISES TO DEVELOP STRENGTH AND ENDURANCE, RANGE OF MOTION AND FLEXIBILITY 08/12 [facility] THERAPEUTIC PROCEDURE,1 OR MORE AREAS,EACH 15 MINUTES;NEUROMUSCULAR REEDUCATION OF MOVEMENT,BALANCE,COORD INATION,KINESTHETIC SENSE,POSTURE,AND/OR PROPRIOCEPTION FOR SITTING AND/OR STANDING ACTIVITIES 08/06 [facility] THERAPEUTIC PROCEDURE,1 OR MORE AREAS,EACH 15 MINUTES;NEUROMUSCULAR REEDUCATION OF MOVEMENT,BALANCE,COORD INATION,KINESTHETIC SENSE,POSTURE,AND/OR PROPRIOCEPTION FOR SITTING AND/OR STANDING ACTIVITIES 08/01 [facility] CASE MANAGEMENT, EACH 15 MINUTES 07/30 [facility] THERAPEUTIC PROCEDURE, 1 OR MORE AREAS, EACH 15 MINUTES; THERAPEUTIC EXERCISES TO DEVELOP STRENGTH AND ENDURANCE, RANGE OF MOTION AND FLEXIBILITY 07/28 [facility] TELEHEALTH ORIGINATING SITE FACILITY FEE 07/09 [facility] ADMINISTRATION OF PATIENT-FOCUSED HEALTH RISK ASSESSMENT INSTRUMENT (EG, HEALTH HAZARD APPRAISAL) WITH SCORING AND DOCUMENTATION, PER STANDARDIZED INSTRUMENT 07/09 [facility] Physical Therapy: ___ Se ion Segments, 15 Minutes Each Physical Therapy: ___ Session Segments, 15 Minutes Each 19525 07/[address] [facility] Telehealth originating site facility fee 07/[address] [facility] Threshold Audiogram (Pure Tone) Automated Threshold Audiogram (Pure Tone) Automated [id number] 05/[address] [facility] ECG 12-Lead With Interpretation And Report ECG 12-Lead With Interpretation And Report 36036 10/[address] [facility] ECG Interpretation And Report Only ECG Interpretation And Report Only [id number] 07/[address] [facility] Stre Test Post Exercise Recovery Stress Test Post Exercise Recovery 91992 05/28 ELENITA STEEN Treadmill Exercise Test Treadmill Exercise Test 55132 05/27 ELENITA STEEN Cardiac Stre Test Interpretation And Report Only Cardiac Stress Test Interpretation And Report Only [id number] 05/[address] [facility] ECG Interpretation And Report Only ECG Interpretation And Report Only [id number] 05/21 [address]ID M[address]Z [facility] Immunization Administration One Vaccine Immunization Administration One Vaccine 66998 04/[address] [facility] Postoperative Visit, Without Charge Postoperative Visit, Without Charge 14711 02/[address] [facility] Physical Medicine Physical Therapy Re-Evaluation Physical Medicine Physical Therapy Re-Evaluation 06957 02/[address] [facility] Physical Medicine Physical Therapy Re-Evaluation Physical Medicine Physical Therapy Re-Evaluation 89345 02/13 WAYNE MARILYN E DoD Modalities Cryotherapy Cold Packs Modalities Cryotherapy Cold Packs 78117 02/11 PATI JEAN x10 minutes DoD Physical Therapy Mobilization Joint Physical Therapy Mobilization Joint 47474 02/11 PATI JEAN x8 minutes DoD Physical Therapy: ___ Se ion Segments, 15 Minutes Each Physical Therapy: ___ Session Segments, 15 Minutes Each 51732 02/11 PATI JEAN x25 minutes DoD Physical Medicine - Group Physical Therapy Se ion Physical Medicine - Group Physical Therapy Session 06723 02/08 PATI JEAN x15 minutes DoD Physical Therapy: ___ Se ion Segments, 15 Minutes Each Physical Therapy: ___ Session Segments, 15 Minutes Each 73532 02/08 PATI JEAN x15 minutes DoD Physical Therapy Mobilization Joint Physical Therapy Mobilization Joint 43691 02/08 PATI JEAN x8 minutes DoD Physical Therapy Mobilization Joint Physical Therapy Mobilization Joint 09056 02/06 PATI JEAN x8 minutes DoD Physical Medicine - Group Physical Therapy Se ion Physical Medicine - Group Physical Therapy Session 64096 02/06 PATI JEAN x15 minutes DoD Physical Therapy: ___ Se ion Segments, 15 Minutes Each Physical Therapy: ___ Session Segments, 15 Minutes Each 84396 02/06 PATI JEAN x15 minutes DoD Modalities Cryotherapy Cold Packs Modalities Cryotherapy Cold Packs 26129 02/04 PATI JEAN x10 minutes post activity DoD Physical Therapy: ___ Se ion Segments, 15 Minutes Each Physical Therapy: ___ Session Segments, 15 Minutes Each 21867 02/04 PATI JEAN x23 minutes DoD Physical Medicine - Group Physical Therapy Se ion Physical Medicine - Group Physical Therapy Session 18143 02/01 PATI JEAN x15 minutes DoD Physical Therapy: ___ Se ion Segments, 15 Minutes Each Physical Therapy: ___ Session Segments, 15 Minutes Each 87320 02/01 [address] [facility] Physical Medicine - Group Physical Therapy Se ion Physical Medicine - Group Physical Therapy Session 70832 01/30 PATI JEAN x[address] [facility] Modalities Cryotherapy Cold Packs Modalities Cryotherapy Cold Packs 53878 01/30 PATI JEAN x10 minutes DoD Physical Therapy Mobilization Joint Physical Therapy Mobilization Joint 02496 01/30 [address]10 [address] [facility] Physical Therapy: ___ Se ion Segments, 15 Minutes Each Physical Therapy: ___ Session Segments, 15 Minutes Each 51387 01/30 [address] JE[address] x15 [address] [facility] Postoperative Visit, Without Charge Postoperative Visit, Without Charge 41565 01/[address] [facility] Physical Therapy Mobilization Joint Physical Therapy Mobilization Joint 50101 01/29 PATI JEAN x10 minutes DoD Physical Therapy: ___ Se ion Segments, 15 Minutes Each Physical Therapy: ___ Session Segments, 15 Minutes Each 85566 01/29 PATI JEAN x25 [address] [facility] Physical Medicine Physical Therapy Re-Evaluation Physical Medicine Physical Therapy Re-Evaluation 12224 01/[address] [facility] Modalities Cryotherapy Cold Packs Modalities Cryotherapy Cold Packs 30644 12/[address] [facility] Physical Medicine - Group Physical Therapy Se ion Physical Medicine - Group Physical Therapy Session 24725 12/[address] [facility] Physical Therapy: ___ Se ion Segments, 15 Minutes Each Physical Therapy: ___ Session Segments, 15 Minutes Each 70247 12/[address] [facility] Upper extremity addition, excursion amplifier, yuan type 12/[address] [facility] Modalities Cryotherapy Cold Packs Modalities Cryotherapy Cold Packs 40866 12/[address] [facility] Physical Medicine - Group Physical Therapy Se ion Physical Medicine - Group Physical Therapy Session 22459 12/[address] [facility] Physical Therapy: ___ Se ion Segments, 15 Minutes Each Physical Therapy: ___ Session Segments, 15 Minutes Each 69670 12/[address] [facility] Physical Medicine - Group Physical Therapy Se ion Physical Medicine - Group Physical Therapy Session 23508 12/[address] [facility] Modalities Cryotherapy Cold Packs Modalities Cryotherapy Cold Packs 89548 12/[address] [facility] Physical Therapy: ___ Se ion Segments, 15 Minutes Each Physical Therapy: ___ Session Segments, 15 Minutes Each 86412 12/[address] [facility] Physical Therapy: ___ Se ion Segments, 15 Minutes Each Physical Therapy: ___ Session Segments, 15 Minutes Each 60127 12/17 TIM BLAKE Shoulder orthosis, acromio/clavicular (canvas and webbing type), prefabricated, [id number] 12/[address] [facility] Physical Therapy Education Orthotics Training 12/13 ANIYAH FIGUEROA Patient was trained on fitting/placement for a right deroyal shouder brace per Ortho. surgeon. Patient instructed to observe any contraindications (excessive numbness/tingling, loss of distal capillary refill, excessive swelling at surgery site or distal part of arm, or if sling becomes restrictive). Also to monitor any wound or suture sites (if applicable). Patient instructed to follow Ortho. provider instructions/restr ictions. TTS: 13 MINS DoD PT A e ment Physical Performance Testing PT Assessment Physical Performance Testing 47052 11/[address] [facility] Excision Of Lesion Scalp Benign 2.1 to 3cm Excision Of Lesion Scalp Benign 2.1 to 3cm 49543 11/[address] [facility] Immunization Administration Each Additional Vaccine Immunization Administration Each Additional Vaccine 32303 11/[address] [facility] Tdap Vaccine Tdap Vaccine 01639 11/05 SERG VELA Visit for an IM injection of 0.5mL of Boostrix (Tetanus and Diphtheria Toxoids and Acellular Pertussis). Was given in the Right Deltoid. Patient was observed for 15 min with no adverse reactions. [facility] Meningococcal Polysacch Diphtheria Toxoid Conjugate Vaccine 11/05 SERG VELA Visit for an IM injection of 0.5mL of Meningococcal Vaccine (Menactra). Was given in the Left Deltoid. Patient was observed for 15 min with no adverse reactions. [facility] Vaccines Viral Polio, Inactivated (Salk) Vaccines Viral Polio, Inactivated (Salk) 05041 11/05 SERG VELA Visit for an IM injection of 0.5mL of IPOL (Poliovirus Vaccine Inactivated). Was given in the Right Deltoid. Patient was observed for 15 min with no adverse reactions. [facility] Hepatitis A Vaccine Adult Dosage (Intramuscular Use) Hepatitis A Vaccine Adult Dosage (Intramuscular Use) 97998 11/05 SERG VELA Visit for an IM injection of 1mL of Hepatitis A (Havrix). Was given in the Right Deltoid. Patient was observed for 15 min with no adverse reactions. [facility] Immunization Admin Intranasal / Oral Each Additional Vaccine Immunization Admin Intranasal / Oral Each Additional Vaccine 23696 11/[address] [facility] Vaccines Adenovirus Type 4 Live, For Oral Use Vaccines Adenovirus Type 4 Live, For Oral Use 03226 11/05 SERG VELA A single vaccine dose adminstered orally. [facility] Vaccines Adenovirus Type 7 Live, For Oral Use Vaccines Adenovirus Type 7 Live, For Oral Use 32387 11/05 SERG VELA A single vaccine dose adminstered orally. [facility] Immunization Administration One Vaccine Immunization Administration One Vaccine 32785 11/[address] [facility] Screening Test Of Visual Acuity, Quantitative, Bilateral Screening Test Of Visual Acuity, Quantitative, Bilateral 72807 11/[address] [facility] Threshold Audiogram (Pure Tone) Automated Threshold Audiogram (Pure Tone) Automated [id number] 11/01 DELVIS SCHOFIELD Physical Medicine - Group Physical Therapy Se ion Physical Medicine - Group Physical Therapy Session 45698 08/29 SANDER MUÑOZ Physical Therapy Neuromuscular Re-education Physical Therapy Neuromuscular Re-education 15154 08/29 SANDER MUÑOZ Physical Therapy: ___ Se ion Segments, 15 Minutes Each Physical Therapy: ___ Session Segments, 15 Minutes Each 55543 08/29 SANDER MUÑOZ Corticosteroids Inj Intraarticular Subacromial Bursa Right Corticosteroids Inj Intraarticular Subacromial Bursa Right 98525 08/[address] [facility] Physical Therapy: ___ Se ion Segments, 15 Minutes Each Physical Therapy: ___ Session Segments, 15 Minutes Each 20030 08/22 DEMARCO DOUGLAS Physical Medicine Physical Therapy Re-Evaluation Physical Medicine Physical Therapy Re-Evaluation 02121 08/22 DEMARCO DOUGLAS Physical Therapy Neuromuscular Re-education Physical Therapy Neuromuscular Re-education 10043 08/21 SANDER MUÑOZ Physical Therapy: ___ Se ion Segments, 15 Minutes Each Physical Therapy: ___ Session Segments, 15 Minutes Each 65815 08/21 SANDER MUÑOZ Physical Therapy Neuromuscular Re-education Physical Therapy Neuromuscular Re-education 73202 08/19 SANDER MUÑOZ Physical Therapy: ___ Se ion Segments, 15 Minutes Each Physical Therapy: ___ Session Segments, 15 Minutes Each 33934 08/19 SANDER MUÑOZ Physical Therapy Neuromuscular Re-education Physical Therapy Neuromuscular Re-education 76398 08/14 SANDER MUÑOZ Physical Therapy: ___ Se ion Segments, 15 Minutes Each Physical Therapy: ___ Session Segments, 15 Minutes Each 06844 08/14 SANDER MUOÑZ Physical Therapy Neuromuscular Re-education Physical Therapy Neuromuscular Re-education 64863 08/12 SANDER MUÑOZ Physical Therapy: ___ Se ion Segments, 15 Minutes Each Physical Therapy: ___ Session Segments, 15 Minutes Each 03758 08/12 SANDER MUÑOZ Physical Therapy: ___ Se ion Segments, 15 Minutes Each Physical Therapy: ___ Session Segments, 15 Minutes Each 23079 08/06 SANDER MUÑOZ Physical Therapy Neuromuscular Re-education Physical Therapy Neuromuscular Re-education 92242 08/06 SANDER MUÑOZ Physical Therapy: ___ Se ion Segments, 15 Minutes Each Physical Therapy: ___ Session Segments, 15 Minutes Each 09918 08/01 SANDER MUÑOZ Physical Therapy Neuromuscular Re-education Physical Therapy Neuromuscular Re-education 86558 08/01 SANDER MUÑOZ Case Management, each 15 minutes 07/30 CONI LEON Today's acuity base on # [address] [facility] Coordinated care fee, maintenance rate 07/30 CONI LEON 30 minutes this encounter DoD Shoulder orthosis, figure of eight design abduction restrainer, canvas and webbing, prefabricated, [id number] LORRI LEDESMA [facility] Fluid circulating cold pad with pump, any type LORRI LEDESMA [facility] Non-Physician Phone Call To Patient/Provider Brief (5-10min) Non-Physician Phone Call To Patient/Provider Brief (5-10min) 67447 JOYA BUSCH spent 5 minutes on the phone with the patient. [facility] Non-Physician Phone Call To Patient/Provider Brief (5-10min) Non-Physician Phone Call To Patient/Provider Brief (5-10min) [address] [facility] Physical Therapy: ___ Se ion Segments, 15 Minutes Each Physical Therapy: ___ Session Segments, 15 Minutes Each [address] [facility] Physical Therapy: ___ Se ion Segments, 15 Minutes Each Physical Therapy: ___ Session Segments, 15 Minutes Each 64349 JENA JURADO Total time = [address] [facility] Physical Therapy Neuromuscular Re-education Physical Therapy Neuromuscular Re-education [address] [facility] Exercise equipment TOSTAD OROSALIO F [facility] Physical Medicine - Group Physical Therapy Se ion Physical Medicine - Group Physical Therapy Session [address] [facility] Postoperative Visit, Without Charge Postoperative Visit, Without Charge [address] [facility] Threshold Audiogram (Pure Tone) Automated Threshold Audiogram (Pure Tone) Automated [id number] ADA HARRIS [facility] Physical Medicine Physical Therapy Re-Evaluation Physical Medicine Physical Therapy Re-Evaluation [address] [facility] Physical Therapy: ___ Se ion Segments, 15 Minutes Each Physical Therapy: ___ Session Segments, 15 Minutes Each 78257 JENA JURADO Instructed patient in table-top incline push-ups as well as biceps tendon gliding exercise. He performed in clinic and tolerated well. Total time = 8min. [facility] Corticosteroids Injection At Tendon Insertion Corticosteroids Injection At Tendon Insertion [id number] [facility] Patient education, not otherwise cla ified, non-physician provider, group, per se ion LORRI WOO [facility] Case Management, each 15 minutes JONESKYLEE YUN AT # 9, 16 [facility] Case Management, each 15 minutes JONESKYLEE Mc AT # 9, 11 x 2, 16, 18 DoD Case Management, each 15 minutes JONES, KYLEE A AT # 11 x 2, 16 DoD Coordinated care fee, initial rate JONES, KYLEE A 300 minutes/cumulative 300 minutes November 2020 DoD Case Management, each 15 minutes JONES, KYLEE A AT # 1, 5, 11, 16 x 2 DoD Coordinated care fee, risk adjusted maintenance JONES, KYLEE A 60 minutes/cumulative 360 minutes November 2020 DoD Case Management, each 15 minutes JONES, KYLEE A AT # 11 x 2 DoD Coordinated care fee, risk adjusted maintenance, Level 3 JONES, KYLEE A 150 minutes/cumulative 510 minutes November 2020 DoD Case Management, each 15 minutes JONES, KYLEE A AT # 11 x 3, 16, 18 DoD Coordinated care fee, risk adjusted maintenance, Level 4 JONES, KYLEE A 60 minutes/cumulative 570 minutes November 2020 DoD Case Management, each 15 minutes JONES, KYLEE A AT # 6, 18 DoD Coordinated care fee, risk adjusted maintenance, Level 4 JONES, KYLEE A 120 minutes/cumulative 690 minutes November 2020 DoD Case Management, each 15 minutes JONES, KYLEE A AT # 4, 11, 16 DoD Coordinated care fee, risk adjusted maintenance JONES, KYLEE A 180 minutes/cumulative 180 minutes December 2020 DoD Case Management, each 15 minutes JONES, KYLEE A AT # 3, 6, 16, 18 DoD Coordinated care fee, risk adjusted maintenance JONES, KYLEE A 150 minutes/cumulative 330 minutes December 2020 DoD Case Management, each 15 minutes JONES, KYLEE A AT # 9, 11, 16 x 2 DoD Coordinated care fee, risk adjusted maintenance, Level 3 JONES, KYLEE A 120 minutes/cumulative 450 minutes December 2020 DoD Case Management, each 15 minutes JONES, KYLEE A AT # 8 x 2, 11, 16 x 2 DoD Coordinated care fee, risk adjusted maintenance, Level 4 JONES, KYLEE A 120 minutes/cumulative 570 minutes December 2020 DoD Case Management, each 15 minutes JONES, KYLEE A AT # 11 x 2, 16, 18 DoD Coordinated care fee, maintenance rate JONES, KYLEE A 120 minutes/cumulative 120 minutes January 2021 DoD Case Management, each 15 minutes JONES, KYLEE A AT # 3, 16 DoD Coordinated care fee, maintenance rate JONES, KYLEE A 30 minutes/cumulative 150 minutes January 2021 DoD Case Management, each 15 minutes JONES, KYLEE A AT # 11 DoD Coordinated care fee, risk adjusted maintenance JONES, KYLEE A 30 minutes/cumulative 180 minutes January 2021 DoD Case Management, each 15 minutes JONES, KYLEE A AT # 16 DoD Coordinated care fee, risk adjusted maintenance JONES, KYLEE A 180 minutes/cumulative 360 minutes January 2021 DoD Case Management, each 15 minutes JONES, KYLEE A AT # 6, 11 x 2, 16, 18 x 2 DoD Coordinated care fee, risk adjusted maintenance JONES, KYLEE A 180 minutes/cumulative [address] [facility] Case Management, each 15 minutes JONES, KYLEE A AT # 2, 4, 16 DoD Coordinated care fee, risk adjusted maintenance JONES, KYLEE A 180 minutes/cumulative 360 minutes February 2021 DoD Case Management, each 15 minutes JONES, KYLEE A AT # 3, 11, 16 x 2 DoD Coordinated care fee, risk adjusted maintenance, Level 3 JONES, KYLEE A 60 minutes/cumulative 420 minutes February 2021 DoD Case Management, each 15 minutes JONES, KYLEE A AT # 11, 16 DoD Coordinated care fee, risk adjusted maintenance JONES, KYLEE A 240 minutes/cumulative 240 minutes March 2021 DoD Case Management, each 15 minutes JONES, KYLEE A AT # 3, 9, 11, [address] [facility] Social History Combined list of available smoking, tobacco, and other social history from Department of Defense and Veterans Affairs facilities. Social History Type Response Date Comment Sour e Tobacco smoking status NHIS VA-TOBACCO USER EVERY DAY 04/20/2021 [facility] History of tobacco use VA-TOBACCO DOESNT USE WI 30 MIN WAKEUP 04/20/2021 [facility] This section is an empty social history section. [facility]
--- OUTSIDE RECORDS SUMMARY | 2025-01-26 14:58 | XMS_ITS | Patient Health Record ---
Author Organization [facility] Address [address] [place] [address] Care Team Providers Care Rn Neurosurgical Name Role Phone Fercho Myers Unavailable [phone] Connor MALIK, Grey [facility] For Referral No Information Medications Medication SIG (Take, Route, Frequency, Duration) Notes Start Date End Date Status Flexeril *Reorder from Me dispan for eRx and Interaction Alerts* Active Lortab 5 *Reorder from Me dispan for eRx and Interaction Alerts* Active Problems Problem Type SNOMED Code ICD Code Onset Dates Problem Status W/U Status Risk Notes Problem 29888751 Diaphragmatic hernia without obstruction and without gangrene (K44.9) Active confirmed Problem Pleural effusion (74710897) Pleural effusion (J90) Active confirmed Problem 56948676 Paralysis, 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 Problem History of disease caused by Severe acute respiratory syndrome coronavirus 2 (situation) (007212321142639994 ) Personal History of COVID-19 (Z86.16) Active confirmed Problem 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 confirmed Problem Postprocedural states (654116994) S/P thoracentesis (Z98.890) Active confirmed Problem 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 Plan Of Treatment No Information Insurance Providers Payer Name Payer Address Payer Phone Subscriber Number Group Number Insured Name Patient Relationship to Insured Coverage Start Date Coverage End Date [facility] [address] [place] [address] [id number] [facility]# [id number] Ankit Rangel Self - patient is the insured Medical (General) History Surgical History Surgery Date(Month/Year) umbilical hernia repair 2 shoulder surgeries with biceps reconst ruction right Left thoracotomy with left diaphragm pli cation, 12/12/2020 Left thoracotomy, decorticat ion, pleurectomy, wedge resection (upper and lower), lingulectomy for BPF, 02/14/2021
--- OUTSIDE RECORDS SUMMARY | 2025-01-26 14:58 | XMS_ITS | Clinical Summary ---
Author Organization [facility] Address [address] [place] [address] Care Team Providers Care Sap Solutions Architect Name Role Phone Provider, No Known Primary Care Provider Unavail able Allergies No known active allergies Medications azithromycin (ZITHROMAX) 250 MG tabletIndications:U RI with cough and congestion,History of thoracotomy,Diaphra gm dysfunction,Acute cough Take 2 tablets the first day, then 1 tablet daily for 4 days. 6 tablet 3 Active benzonatate (TESSALON) 100 MG capsuleIndications: URI with cough and congestion,History of thoracotomy,Diaphra gm dysfunction,Acute cough Take 1 capsule by mouth 3 (Three) Times a Day As Needed for Cough. 30 capsule 3 Active ondansetron ODT (ZOFRAN-ODT) 4 MG disintegrating tabletIndications:U RI with cough and congestion,History of thoracotomy,Diaphra gm dysfunction,Acute cough Place 1 tablet on the tongue Every 8 (Eight) Hours As Needed for Nausea. 15 tablet 3 Active Social History Tobacco Use Types Packs/Day Years Used Date Smoking Tobacco: Never Smokeless Tobacco: Never Alcohol Use Standard Drinks/Week Comments Never 0 (1 standard drink = 0.6 oz pur e alcohol) Abuse Screen Answer Date Recorded Unsafe at Home or Work/School Not on file Feels Threatened by Someone? Not on file 03/2023 Does Anyone Keep You from Co ntacting Others or Doint Things Outside the Home? Not on file 04/02/2023 Physical Sign of Abuse Present Not on file 1 Housing Stability Answer Date Recorded Current Living Arrangements Not on file 03/24 Potentially Unsafe Housing Conditions Not on vik e 04/02/2023 Family and Community Support Answer Sumeet e Recorded Help with Day-to-Day Activities Not on file 04/02/2023 Lonely or Isolated Not on file 04/02/2023 Employment Answer Date Recorded Do you want help finding or keeping work or a tim b? Not on file 04/02/2023 Disabilities Answer Date Recorded Concentrating, Remembering, or Making Decisions Difficulty Not on file 04/02/2023 Doing Errands Independently Difficulty Not on fi le 04/02/2023 Education Answer Date Recorded Help with school or training? Not on file Preferred Language Not on file 04/02/2023 Sex and Gender Information Value Date Recorded Sex Assigned at Not on file Legal Sex Male 1:54 PM EDT Gender Identity Not on file Sexual Orientation Not on file Last Filed Vital Signs Vital Sign Reading Time Taken Comments Blood Pressure 144/86 07/18/2022 5:22 PM EST Pulse 100 07/18/2022 5:22 PM EST Temperature 37 C (98.6 F) 07/18/2022 5:22 PM EST Respiratory Rate 16 07/18/2022 5:22 PM EST Oxygen Saturation 96% 07/18/2022 5:22 PM EST Inhaled Oxygen Concentration - - Weight 97.1 kg (214 lb) 07/18/2022 5:22 PM EST Height 185.4 cm (6' 1 ) 07/18/2022 5:22 PM EST Body Mass Index 28.23 07/18/2022 5:22 PM EST Plan of Treatment Health Maintenance Due Date Last Done Comments TDAP/TD VACCINES (1 - Tdap) 2005 ANNUAL PHYSICAL 07/19/2022 HEPATITIS C SCREENING 07/19/2022 COVID-19 Vaccine ( - 2023-2 5 season) 2024 INFLUENZA VACCINE 03/24/2025 Pneumococcal Vaccine 0-49 Aged Out No longer eligible based on patient's age to complete this topic [place] [address] [facility] PPO Care Teams Sap Solutions Architect Relationship Specialty Start Date End Date Provider, [place] [address] PCP - General 02/16/16
--- OUTSIDE RECORDS SUMMARY | 2025-01-26 14:58 | XMS_ITS | Clinical Summary ---
Author Organization [facility] [place] [facility] Address [address] [place] [address] Care Team Providers Care Contract Designer Name Role Phone LondonBartolo Tami MATA Primary Care Provider [phone] Allergies No known active allergies Medications omeprazole (PriLOSEC) [address] capsule 1 capsule (40 mg). 4 Active testosterone cypionate (Depo-Testoster one) 200 MG/ML injection Inject 1 mL (200 mg) into the muscle every 14 (fourteen) days. Three times a week Active cyclobenzaprine (Flexeril) 10 MG tablet Take 1 tablet (10 mg) by mouth every 12 (twelve) hours. 4 Active sennosides (Ex-Lax) 15 mg chocolate chewable tablet every night. A ctive methylPREDNISol one (Medrol Dospak) 4 MG tablets Follow schedule on package instructions 21 tablet 5 Active Active Problems No known active problems Social History Tobacco Use Types Packs/Day Years [...] 3 - Adult catch-up series) 11/29/2016 11/01/2016 [id number] Vaccine (1 - 2023- season) 2024 [facility]-Influenza Vaccine (#1) 02/22/202505/17, 04/07/2019, 08/10/2018, Additional history exists [facility]-Depression Screening [...] patient's age to complete this topic Insurance [employer] Care Teams Contract Designer Relationship Specialty Start Date End Date Barotlo Callahan DO [address] [place] [address] [place] [id number] PCP - General 12/16/24
== END 2025-01-25 23:59 | disposition home or self-care (01) ==
LOC: LAB.DROPOF 01-26 14:48
PROVIDERS: PCP Student in an Organized Health Care Education/Training Program; Visit Provider Student in an Organized Health Care Education/Training Program
DX: J06.9 Acute upper respiratory infection, unspecified (principal)
CPT/HCPCS: 87631

== ENCOUNTER 2025-04-23 08:00 | Outpatient (RCR) | payer BC, SELFPAY ==
--- NOTE | 2025-03-31 18:18 | HMH.PTOPEV ---
PT Evaluation Rehab PT Outpatient Evaluation Start: 03/31/25 14:02 Freq: Status: Active Protocol: Document 03/31/25 14:03 CHOLOHEYDI (Rec: 03/31/25 18:18 JACK [id number]) E-signed By Estee Parks, PT Outpatient Therapy Subjective History Subjective History Pt is a 39 y/o male referred to PT for cervical disc disorder and low back pain. Pt reports mild chronic neck pain for ~2 years with gradual worsening overtime. Pt reports bilateral R>L neck pain described as tightness with intermittent sub occipital headaches that seem worse in the morning time. Pt denies n/v, light or noise sensitivity with headaches. Pt also reports intermittent numbness of the right hand and fingers with onset during the night time and with overhead stretching of his right shoulder. 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 Pt also with history of right shoulder surgery with continued R shoulder pain and noted crepitus. Pt states he felt a pop of his right shoulder followed by sharp, hot pain then a cold sensation. Pt states this occurred when leaning on his right elbow and sliding it forward with maintained pressure. Pt denies having recent imaging of the shoulder. Pt had a cervical spine MRI on 12/10/24 with impression of Minimal neural foraminal compromise on the left at C4-5 and on the right at C5-6. [Neck/ shoulder pain: current 4/10, best 1/10, worst 9/10] Pt also reports chronic LBP with history of PT treatment with short-term relief with dry needling. Pt reports current symptoms of constant central low back pain that radiates into bilateral hips when severe. Pt denies more distal symptoms, numbness/tingling, or b/b dysfunction. Pt describes pain as an ice pick in the spine. Pt reports pain is aggravated by prolonged sitting, prolonged standing and sleeping. [Low back pain: 2/10, best 2/10, worst 8/10] Occupation: [employer] Medical History: [place]itting[place] injury of phrenic nerve, Diaphragm paralysis, Tear meniscus knee, Mesocardia, Collapse of left lung, Right-sided chest pain Irritable bowel syndrome, Right upper quadrant pain, GERD (gastroesophageal reflux disease), Abnormal computerized axial tomography of chest, Chronic cough, Abnormal EKG, Allergies, Multiple lung nodules on CT, Atypical pneumonia, Dyspnea on exertion, Elevated diaphragm Surgical History: Hx of collapsed lung with 2 thoracotomies & thoracentesis, 2 umbilical hernia repairs, gall bladder removal New diagnosis of No cancer in past 12 months? Chief Complaint Pain Symptom Type Ache,Sharp,Dull,Stabbing,Burning,Numbness,Tingling Symptoms Relieved By Rest/Positioning,OTC Meds Symptoms Aggravated Sitting,Standing,Physical Activity,Lifting By Current Functional Lifting,Driving,Sleeping,Standing,Sitting,Recreation Limitations Activity,Bending/Stooping Symptom Description Constant but Variable Cervical Eval Palpation Cervical Muscles R Cervical Paraspinal,R Upper Trapezius,R Thoracic Paraspinals Cervical/Thoracic Tenderness Palpation Findings Flexibility Deficits Upper Trapezius (R) Moderate Tightness Muscle Length Levaetor Scapulae (R) Moderate Tightness Muscle Length Pectoralis Major (R) Mild Tightness,(L) Mild Tightness Muscle Length Pectoralis Minor (R) Mild Tightness,(L) Mild Tightness Muscle Length Passive Joint Mobility Cervical PIVM Dec: R C3/4 R C4/5 R C5/6 R C6/7 AROM Cervical Spine 45 Extension Active Range of Motion ( degrees) Cervical Spine 40 Flexion Active Range of Motion (degrees) Cervical Spine Right 30 Lateral Flexion Active Range of Motion (degrees) Cervical Spine Left 35 Lateral Flexion Active Range of Motion (degrees) Cervical Spine Right 70 Rotation Active Range of Motion ( degrees) Cervical Spine Left 70 Rotation Active Range of Motion ( degrees) MMT Bilateral Deltoid (C5) 4- Good- Biceps Brachii 4+ Good+ Strength Grade Wrist Extension 4+ Good+ Strength Grade Triceps Brachii 5 Normal Strength Grade Wrist Flexion 5 Normal Strength Grade Extensor Pollicis 5 Normal Longus Strength Grade Finger Abduction 5 Normal Strength Grade DTR Rt Biceps 2+ Rt Brachioradialis 2+ Rt Triceps 2+ Altered Sensation Bilateral Upper extremity C4,C5,C6 Dermatomes Comment decreased light touch right compared to left Special Test C-Spine Foraminal Positive Right Compression ( [place]) Test C-spine Verterbral Central P/A [place],Right P/A [place] Accessory Movements that Elicit Symptoms C-Spine Foraminal Positive Distraction Test C-Spine Compression Negative Right Test Shoulder/Elbow Eval Shoulder Objective Measurements Shoulder MMT Right Lower Trapezius 4- Good- Strength Grade Middle Trapezius 4- Good- Strength Grade Rhomboids Strength 4- Good- Grade Serratus Anterior 4 Good Strength Grade Upper Trapezius/ 4 Good Levator Scapulae Shoulder Abduction 4- Good- Strength Grade Shoulder Extension 4 Good Strength Grade Shoulder Flexion 4+ Good+ Strength Grade Shoulder External 4- Good- Rotation Strength Grade Shoulder Internal 4 Good Rotation Strength Grade Elbow Objective Measurements Lumbopelvic Eval Posture Lumbar Spine Posture Flattened,Decreased Lordosis Standing Position Palapation tenderness bilateral lumbar spinal Yes: L2-L5, S1 tenderness paraspinal Yes: R>L tenderness buttock tenderness Yes: R>L piriformis mm Lumbar/Sacral Tenderness Palpation Findings Lumbar/Sacral 2-3/4 TTP Palpation Overall Comment Accessory Movement L-spine Vertebrae Central P/A [place] Accessory Movements that Elicit Symptoms L2 bilateral L3 bilateral L4 bilateral L5 bilateral Range of Motion Lumbar Spine Active 50 Flexion Range of Motion (degrees) Lumbar Spine Active 10 Extension Range of Motion (degrees) Left Lumbar Spine 5 Lateral Flexion Active Range of Motion (degrees) Right Lumbar Spine 5 Lateral Flexion Active Range of Motion (degrees) Manual Muscle Test Bilateral Knee Extension 5 Normal Strength Grade Knee Flexion 5 Normal Strength Grade Hip Flexion Strength 5 Normal Grade Hip Abduction 4+ Good+ Strength Grade Hip Adduction 4+ Good+ Strength Grade Hip Extension 4- Good- Strength Grade Ankle Dorsiflexion 5 Normal Strength Grade DTR Rt Patellar 2+ Lt Patellar 2+ Altered Sensation Bilateral Comment equal and intact to light touch sensation bilaterally Special Tests Hip Ramses (ALEK) Positive Left,Positive Right Test Sciatic Nerve Positive Left,Positive Right Tension Test Unilateral Straight Positive Left,Positive Right Leg Raise (Lasegue) Test Oswestry Index Section 1 Pain Intensity The pain comes and goes and is severe Section 2 Personal Care ( my way of washing or dressing even though it causes Washing,Dresing) some pain Section 3 Lifting I can lift heavy weights, but it gives me extra pain Section 4 Walking I have some pain when walking but it does not increase with distance Section 5 Sitting Pain prevents me from sitting for more than one hour Section 6 Standing I cannot stand more than 1 hour without increasing pain Section 7 Sleeping Because of my pain, my normal night's sleep is less than 6 hours sleep Section 8 Social Life My social life is normal and gives me no extra pain Section 9 Traveling I get extra pain while traveling, but it does not compel me to seek al Section 10 Changing Degreee of My pain is gradually getting worse Pain Score and Risk Level Oswestry Score 19 Oswestry Risk Level Moderate Disability Neck Disability Index Neck Disability Index Section 1: Pain The pain is very mild at moment Intensity Section 2: Personal I can look after myself normally but it causes extra Care (washing, pain dressing, etc.) Section 3: Lifting I can lift heavy weights without extra pain Section 4: Reading I can read as much as I want with moderate pain in my neck Section 5: Headaches I have slight headaches, which come infrequently Section 6: I can concentrate fully when I want to with no Concentration difficulty Section 7: Work I can do as much work as I want to Section 8: Driving I can drive my car as long as I want with slight pain in my neck Section 9: Sleeping My sleep is slightly disturbed (less than 1 hr sleepless) Section 10: I am able to engage in all my recreation activities Recreation with some pain in NDI Score 8 Miscellaneous Dx PT Eval Objective Objective R hand dominant Rubber Goods Tester Water strength: R 70lb, L 130lb Core strength: 4-/5 Special tests: + median nerve tension test Outpatient Therapy Assessment Impairments Problems/ Palpation Tenderness,Impaired Range of Motion,Impaired Impairmments Strength,Impaired Walking,Impaired Standing,Impaired Sitting,Impaired Lifting,Impaired Squatting,Impaired Bending,Impaired Recreational Activities,Impaired Running,Impaired Jumping,Impaired Work Activities, Subjective C/O Pain,Impaired Self Care/Self Management Prognosis Rehab Potential Good Clinical Impression Consistent with Yes Diagnosis PT Patient Goals PT Patient Goals PT Short Term 3-4 weeks: Patient Goals 1. Verbalize compliance with HEP to assist with progress. 2. Improve pain at worst to 6-7/10 to improve overall QOL/function. 3. Improve R cat operator strength by at least 10lbs to assist with ADLs/occupation. 4. Improve lumbar AROM flex to at least 60 to assist with mobility and function. 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 Improve pain at worst to 4-5/10 to improve overall QOL/function. 2. Improve NDI score to <5 to improve overall QOL/ function. 3. Improve BA score to 14 or less to improve overall QOL/function. 4. Improve Improve R shoulder/scapular strength to 4-4+ /5 grossly to assist with function. 5. Improve hip/core strength to 4+/5 grossly to assist with function. 6. Improve cervical AROM flexion and lateral flexion to 45 to assist with mobility and function. 7. Improve lumbar AROM flex to at least 70 and ext/LF to 10-15 to assist with mobility and function. 8. Report ability to perform work duties with pain 4-5/ 10 or less. Outpatient Therapy Plan of Care Treatment Plan May Include Therapeutic Exercise Yes Including Home Exercise Program Manual Therapy Yes Techniques Neuromuscular Re- Yes education Therapeutic Yes Activities to Return to Previous Functional/Work Level ADL/Self Care Yes Education Mechanical Traction Yes Dry Needling Yes Thermal Modalities Yes Electrical Yes Stimulation Ultrasound/ Yes Phonophoresis Iontophoresis Yes Massage Yes Eval/Re-Eval Yes Frequency Times per week 2 Duration Number of Weeks 6-8 Addendums This patient is a No candidate for social or vocational rehab ? Patient/Guardian Yes verbally acknowledges understanding of treatment program and consents to further treatment? Patient/Guardian Yes verbally acknowledges understanding of diagnosis, prognosis and goals for treatment? Eval Complexity PT Charges 64789 - Low Complexity PHYSICIAN CERTIFICATION: I certify the specified therapy services for Ankit Rangel are required, authorized, and reviewed every 30 days.
== END 2025-04-23 23:59 | disposition home or self-care (01) ==
LOC: PT 08:00
PROVIDERS: Visit Provider Internal Medicine
DX: M54.2 Cervicalgia (principal); M54.50 Low back pain, unspecified
CPT/HCPCS: 97014; 97110; 97140; 97161; G0283

== ENCOUNTER 2025-05-12 08:00 | Outpatient (RCR) | payer BC, SELFPAY ==
--- NOTE | 2025-05-11 09:31 | HMH.RHREAS ---
Rehab Reassessment Rehab OP Re-assessment Start: 04/26/25 15:01 Freq: Status: Active Protocol: Document 05/10/25 15:40 ASHLEY (Rec: 05/11/25 09:29 ASHLEY [id number]) E-signed By Jenna Lynch, PT Neck Disability Index Neck Disability Index Section 1: Pain The pain is very mild at moment Intensity Section 2: Personal I can look after myself normally without causing extra Care (washing, pain dressing, etc.) Section 3: Lifting I can lift heavy weights without extra pain Section 4: Reading I can read as much as I want with moderate pain in my neck Section 5: Headaches I have moderate headaches, which come infrequently Section 6: I can concentrate fully when I want to with slight Concentration difficulty Section 7: Work I can do as much work as I want to Section 8: Driving I can drive my car as long as I want with moderate pain in my neck Section 9: Sleeping My sleep is moderately disturbed (2-3 hrs. sleepless) Section 10: I am able to engage in all my recreation activities Recreation with some pain in NDI Score 12 Oswestry Index Section 1 Pain Intensity The pain comes and goes and is severe Section 2 Personal Care ( my way of washing or dressing even though it causes Washing,Dresing) some pain Section 3 Lifting lifting heavy weights off the floor, but I can manage if they are Section 4 Walking I cannot walk more than one mile wihtout increasing pain Section 5 Sitting I can sit in my favorite chair for as long as I like Section 6 Standing I cannot stand more than 1 hour without increasing pain Section 7 Sleeping Because of my pain, my normal night's sleep is less than 6 hours sleep Section 8 Social Life My social life is normal and gives me no extra pain Section 9 Traveling I get some pain when traveling, but none of my usual forms of travel m Section 10 Changing Degreee of My pain is neither getting better or worse Pain Score and Risk Level Oswestry Score 19 Oswestry Risk Level Moderate Disability Rehab Re-assessment Subjective Subjective Pt reports his LBP is worse than his neck pain in the past 48 hours. Pt reports some improvement in his neck pain but symptom severity varies by day. Pain at worst: 9/10 HEP: pt reports some HEP compliance. Objective Objective Notes Lumbar AROM: - Flexion: 50 deg - Ext: 10 deg - SBing B: 5 deg NDI: 12 BA: 21 Melt Helper strength: unable to measure d/t broken equipment this date. Assessment Progress Assessment Slower Than Expected Assessment Notes This is a reassessment for Ankit Rangel who presents to PT for c/o LBP and neck pain. Since IE, pt has been regularly attending PT for ~ 1 month. Pt with good attendance to scheduled PT visits and reports some adherence to HEP. Pt still presents with impairments noted upon evaluation. Pt would continue to benefit from skilled outpatient physical therapy to address remaining deficits, improve QOL, and achieve LTGs. PT Patient Goals PT Short Term 3-4 weeks: not met Patient Goals 1. Verbalize compliance with HEP to assist with progress: not met 2. Improve pain at worst to 6-7/10 to improve overall QOL/function: not met 3. Improve R parachute crown sewer strength by at least 10lbs to assist with ADLs/occupation: not met 4. 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 Improve pain at worst to 4-5/10 to improve overall QOL/function: not met 2. Improve NDI score to <5 to improve overall QOL/ function: not met 3. Improve BA score to 14 or less to improve overall QOL/function: not met 4. Improve Improve R shoulder/scapular strength to 4-4+ /5 grossly to assist with function: not met 5. Improve hip/core strength to 4+/5 grossly to assist with function: not met 6. Improve cervical AROM flexion and lateral flexion to 45 to assist with mobility and function: not met 7. Improve lumbar AROM flex to at least 70 and ext/LF to 10-15 to assist with mobility and function: not met 8. Report ability to perform work duties with pain 4-5/ 10 or less: not met Plan Plan Continue current POC Frequency of Therapy 2x weekly Duration of Therapy 4-5 weeks Time and Billing Re-Eval Time 10 Re-Eval Billing 0 Units Charge for PT No reassessment? PHYSICIAN CERTIFICATION: I certify the specified therapy services for Ankit Rangel are required, authorized, and reviewed every 30 days.
== END 2025-05-12 23:59 | disposition home or self-care (01) ==
LOC: PT 08:00
PROVIDERS: Visit Provider Internal Medicine
DX: M50.90 Cervical disc disorder, unspecified, unspecified cervical region (principal); M54.50 Low back pain, unspecified
CPT/HCPCS: 97014; 97110; 97140; G0283